=== PATIENT | female | born 1950 | race Caucasian/White ===

== ENCOUNTER → 2024-12-15 | Outpatient (BNVA) | payer MEDICARE, SELFPAY | END | disposition home or self-care (01) | PROVIDERS: PCP Physician Assistant; Referring Provider Physician Assistant; Visit Provider Urology | DX: N32.81 Overactive bladder (principal); G89.4 Chronic pain syndrome; Z87.440 Personal history of urinary (tract) infections; I10 Essential (primary) hypertension; F17.210 Nicotine dependence, cigarettes, uncomplicated; E78.00 Pure hypercholesterolemia, unspecified | CPT/HCPCS: 81003; 99212; G0463 ==

== ENCOUNTER 2025-03-19 10:35 | Emergency (ER) | payer MEDICARE, MEDICAID, SELFPAY ==
[2025-03-19 10:37] VITALS: BP 162/81; PULSE 55; RESP 16; TEMP 36.6; O2SAT 95; BMI 20.8
[2025-03-19 10:40] VITALS: PULSE 74; RESP 18; O2SAT 98
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
[2025-03-19 13:52] VITALS: BP 141/84; PULSE 63; RESP 18; TEMP 36.6; O2SAT 96
[2025-03-19 14:08] LABS: Basophils % (Auto) 0 % (0-2.5); Eosinophils % (Auto) 0 % (0-10); Hematocrit 42.7 % (36.0-46.0); Hemoglobin 13.9 g/dL (12.0-16.0); Immature Granulocytes % (Auto) 1 % (0-0); Immature Granulocytes Auto 0.19 Thou/mm3 (0.00-0.00); Lymphocytes % (Auto) 5 % (10-50); Mean Corpuscular HGB Conc 32.6 g/dl (31.0-37.0); Mean Corpuscular Volume 83 fL (80-100); Monocytes # (Auto) 1.1 Thou/mm3 (0.0-0.8); Monocytes % (Auto) 5 % (0-12); Neutrophils # (Auto) 18.3 Thou/mm3 (1.8-7.7); Neutrophils % (Auto) 89 % (37-80); Nucleated Red Blood Cell % 0 /100 WBC (0); Platelet Count 284 Thou/mm3 (140-440); RDW Standard Deviation 52.1 fL (36.4-46.3); Red Blood Count 5.14 Miln/mm3 (4.00-5.20); White Blood Count 20.7 Thou/mm3 (3.6-11.0)
[2025-03-19 14:22] LABS: Partial Thromboplastin Time 21.9 Seconds (22.0-36.0)
[2025-03-19 14:27] LABS: Alanine Aminotransferase 28 U/L (10-49); Albumin, Serum 3.8 gm/dL (3.4-4.8); Albumin/Globulin Ratio 1.7 (1.2-2.2); Alkaline Phosphatase 118 U/L (46-116); Anion Gap 5 (7-16); Aspartate Amino Transferase 44 U/L (0-34); BUN/Creatinine Ratio 17 Ratio (12-20); Bilirubin,Total 0.5 mg/dL (0.3-1.2); Blood Urea Nitrogen 15 mg/dL (9-23); Calcium 9.5 mg/dL (8.3-10.6); Calcium (Corrected) 9.7 mg/dL (8.5-10.1); Chloride 109 mMol/L (98-107); Creatinine (Component) 0.9 mg/dL (0.6-1.3); Globulin 2.3 gm/dL (2.3-3.5); Glucose 137 mg/dL (74-106); Osmolality,Calculated 284 (275-295); Potassium 4.5 mMol/L (3.4-5.1); Sodium 141 mMol/L (136-145); Total Protein 6.1 gm/dL (5.7-8.2); eGFR > 60 See Note
[2025-03-19 15:05] VITALS: BP 150/80; PULSE 66; RESP 18; TEMP 36.5; O2SAT 99
[2025-03-19] MEDS: HYDROcodone/APAP 10/325 TAB PO (16:11)
[2025-03-19 16:29] VITALS: BP 145/82; PULSE 73; RESP 21; TEMP 36.6; O2SAT 96
[2025-03-19] MEDS: HYDROmorphone INJ 2 MG/ML VIAL 1 MG IVP (18:08)
== END 2025-03-19 18:30 | disposition short-term general hospital (02) ==
PROVIDERS: Nurse Practitioner Family; Emergency Provider Emergency Medicine; PCP Physician Assistant
DX: S12.600A Unspecified displaced fracture of seventh cervical vertebra, initial encounter for closed fracture (principal); S32.038A Other fracture of third lumbar vertebra, initial encounter for closed fracture; V43.52XA Car driver injured in collision with other type car in traffic accident, initial encounter; R51.9 Headache, unspecified; M25.512 Pain in left shoulder; M25.552 Pain in left hip
CPT/HCPCS: 36415; 70450; 72125; 72131; 73030; 73502; 80053; 85025; 85730; 96374; 99285; J1171; A9270

== ENCOUNTER → 2025-04-17 | Outpatient (CLI) | payer MEDICARE, MEDICAID, SELFPAY ==
--- NOTE | 2025-04-17 12:30 | XR_ITS ---
Examination: Abdomen sonogram, complete Date and time of exam: April 17, 2025 1240 hours INDICATIONS: Generalized abdominal pain beginning several months ago. Technique: Multiple real-time grayscale transabdominal sonographic images of the abdomen have been obtained. Findings: Multiple gallstones Gallbladder wall 0.3 cm Common bile duct 0.8 cm although no definite stones Pancreatic head 1.8 cm Aorta not enlarged Liver 14.1 cm mildly lobular contour fatty infiltration no focal liver lesions Normal hepatopedal portal venous flow Patent IVC Right kidney 9.0 cm cortex 1.8 cm 14 mm upper pole cyst 11 mm lower pole cyst Left kidney 9.6 cm cortex 1.4 cm Mild bilateral renal parenchymal scar formation Spleen 9.3 cm IMPRESSION: Cholelithiasis, negative for cholecystitis Fatty liver, suspect primary hepatocellular disease Mild bilateral renal parenchymal scar formation
== END | disposition home or self-care (01) ==
LOC: CDIM 12:21
PROVIDERS: PCP Physician Assistant; Referring Provider Physician Assistant; Visit Provider Physician Assistant
DX: K80.20 Calculus of gallbladder without cholecystitis without obstruction (principal); K76.0 Fatty (change of) liver, not elsewhere classified; N28.89 Other specified disorders of kidney and ureter; N28.1 Cyst of kidney, acquired
CPT/HCPCS: 76700

== ENCOUNTER → 2025-07-23 | Outpatient (CLI) | payer MEDICARE, MEDICAID, SELFPAY ==
--- NOTE | 2025-07-23 13:45 | XR_ITS ---
Examination: Screening digital mammography, bilateral Computer aided detection 3-D breast Tomosynthesis, bilateral Date and time of exam: July 23, 2025 1341 hours, comparison February 18, 2024 Indication: Screening Technique: Nonmagnified MLO, CC views of the breasts to been obtained, reconstructed from 3-D Tomosynthesis images. R2 computer aided detection program utilized for evaluation of suspicious masses and/or abnormal calcifications. 3-D Tomosynthesis images obtained. Findings: The breasts are heterogeneously dense, which may obscure small masses Grouped microcalcifications 12:00 position left breast Impression: BI-RADS Category 0: Incomplete: Need additional imaging evaluation Recommend follow-up spot magnification views of grouped microcalcifications 12:00 position left breast.
== END | disposition home or self-care (01) ==
PROVIDERS: PCP Physician Assistant; Referring Provider Physician Assistant; Visit Provider Physician Assistant
DX: Z12.31 Encounter for screening mammogram for malignant neoplasm of breast (principal); R92.0 Mammographic microcalcification found on diagnostic imaging of breast
CPT/HCPCS: 77063; 77067

== ENCOUNTER 2025-10-21 16:13 | Observation (INO) | payer MEDICARE, MEDICAID, SELFPAY ==
[2025-10-21 16:45] VITALS: BP 171/85; PULSE 65; RESP 18; TEMP 37.2; O2SAT 96; BMI 20.5
--- NOTE | 2025-10-21 16:48 | EKG_ITS ---
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
--- NOTE | 2025-10-21 16:50 | XR_ITS ---
Examination: Abdomen sonogram, Limited Date and time of exam: October 21, 2025, 1715 hours INDICATIONS: Generalized abdominal pain today Technique: Real-time brice scale transabdominal sonographic images of the upper abdomen obtained. Findings: Multiple gallstones Normal gallbladder wall 0.3 cm Common bile duct 0.6 cm no stones Pancreatic head 2.0 cm Liver 12.8 cm irregular contour no focal liver lesions Normal hepatopetal portal venous flow Patent IVC IMPRESSION: Normal gallbladder Negative for common bile duct stones Liver normal size mildly irregular contour, clinical correlation advised, consider primary hepatocellular disease
--- NOTE | 2025-10-21 16:52 | XR_ITS ---
Examination: CT abdomen and pelvis without contrast. Coronal 3-D reconstructions. Sagittal 2-D reconstructions. Date and time of exam: October 21, 2025, 1706 hours INDICATIONS: Abdominal pain and nausea beginning today CTDI: vol (mGy): 5.12 DLP: (mGycm): 251 Technique: Axial images of the abdomen have been obtained, 3 mm slice thickness Intravenous contrast material has not been administered. Low dose protocols were performed. One or more of the following dose reduction techniques were used; automated exposure control, adjustment of the mA and/or KV according to patient size, use of iterative reconstruction technique. Findings: Retrocardiac gastric hernia Gastric sutures 5 mm splenic lesion Contracted gallbladder with gallstones Aorta is not enlarged No bowel obstruction Fluid distended small bowel loops in the abdomen poorly visualized on this noncontrast study No pericecal inflammatory change No pelvic mass No bladder mass Grade 1-2 anterolisthesis L4 on L5 Advanced degenerative disc disease L2-L3, L4-L5, L5-S1 Cortical erosions contiguous endplates L2-L3 IMPRESSION: Recommend splenic sonography to assess 5 mm splenic lesion Cholelithiasis Fluid distended small bowel loops, consider serial abdominal series follow-up to exclude early small bowel obstruction Cortical bone erosion involving contiguous endplates L2-L3 suspicious for osteomyelitis discitis, consider elective MRI lumbar spine follow-up pre and postcontrast
--- NOTE | 2025-10-21 16:53 | PD.EDRME ---
Rapid Medical Screening Exam RME Arrival date/time: 10/21/25 16:13 75-year-old female presents with concerns for upper abdominal pain ongoing for days Chief Complaint: Abdominal Pain Vital signs: Vital Signs Temperature 98.9 F 10/21/25 16:45 Pulse Rate 65 10/21/25 16:45 Respiratory Rate 18 10/21/25 16:45 Blood Pressure 171/85 H 10/21/25 16:45 Pulse Oximetry (%) 96 10/21/25 16:45 Oxygen Delivery Method Room Air 10/21/25 16:45 Vital signs reviewed by provider: Yes Exam: On exam patient has tenderness of the abdomen Clinical Impression: Lab work and imaging obtained
[2025-10-21 17:42] LABS: Basophils # (Auto) 0.0 Thou/mm3 (0.0-0.2); Basophils % (Auto) 0 % (0-2.5); Eosinophils # (Auto) 0.0 Thou/mm3 (0.0-0.5); Eosinophils % (Auto) 0 % (0-10); Hematocrit 45.2 % (36.0-46.0); Hemoglobin 14.5 g/dL (12.0-16.0); Immature Granulocytes Auto 0.05 Thou/mm3 (0.00-0.00); Lymphocytes # (Auto) 1.2 Thou/mm3 (1.0-4.8); Lymphocytes % (Auto) 9 % (10-50); Mean Corpuscular HGB Conc 32.1 g/dl (31.0-37.0); Mean Corpuscular Hemoglobin 27.3 pg (25.0-35.0); Mean Corpuscular Volume 85 fL (80-100); Monocytes # (Auto) 0.6 Thou/mm3 (0.0-0.8); Monocytes % (Auto) 4 % (0-12); Neutrophils # (Auto) 11.8 Thou/mm3 (1.8-7.7); Neutrophils % (Auto) 87 % (37-80); Nucleated Red Blood Cell # 0.00 Thou/mm3 (0.00-0.00); Nucleated Red Blood Cell % 0 /100 WBC (0); Platelet Count 391 Thou/mm3 (140-440); RDW Standard Deviation 43.9 fL (36.4-46.3); Red Blood Count 5.32 Miln/mm3 (4.00-5.20); White Blood Count 13.6 Thou/mm3 (3.6-11.0)
[2025-10-21 18:27] LABS: Alanine Aminotransferase < 7 U/L (10-49); Albumin, Serum 4.1 gm/dL (3.4-4.8); Albumin/Globulin Ratio 1.6 (1.2-2.2); Alkaline Phosphatase 140 U/L (46-116); Anion Gap 9 (7-16); Aspartate Amino Transferase 13 U/L (0-34); BUN/Creatinine Ratio 21 Ratio (12-20); Bilirubin,Total 0.4 mg/dL (0.3-1.2); Blood Urea Nitrogen 17 mg/dL (9-23); Calcium 9.6 mg/dL (8.3-10.6); Calcium (Corrected) 9.6 mg/dL (8.5-10.1); Carbon Dioxide 26.3 mMol/L (20.0-31.0); Chloride 107 mMol/L (98-107); Creatinine (Component) 0.8 mg/dL (0.6-1.3); Estimated Creatinine Clearance 48.8 mL/min (>60); Globulin 2.5 gm/dL (2.3-3.5); Glucose 118 mg/dL (74-106); Lipase 25 U/L (12-53); Osmolality,Calculated 285 (275-295); Potassium 5.1 mMol/L (3.4-5.1); Sodium 142 mMol/L (136-145); Total Protein 6.6 gm/dL (5.7-8.2); Troponin I < 0.020 ng/mL (0.0-0.045); eGFR > 60 See Note
--- NOTE | 2025-10-21 18:43 | PD.EDABDPN ---
ED Abdominal Pain RME/HPI General Chief Complaint: Abdominal Pain Stated complaint: ABD PAIN 06/14 Time seen by provider: 10/21/25 18:31 Arrival date/time: 10/21/25 16:13 RME / HPI RME / HPI narrative: 10/21/25 16:13 75-year-old female presents with concerns for upper abdominal pain ongoing for days upper abdominal pain for the last few days. Vital signs and exam as listed. Prior provider evaluated patient. Ordered labs, right upper quadrant ultrasound as well as CT abdomen pelvis. Also ordered EKG. Concern for pancreatitis cholelithiasis Crichlow cystitis urinary tract infection ACS obstruction perforation among others. DR. GALLARDO MAIN ED EVALUATION: 75 y/o female with SHx of Gastric Bypass and Hiatal Hernia Repair in March 2025 presents to ED c/o worsening intermittent epigastric abdominal pain x several weeks, worse over the last few days. Also reports dysuria and non-bloody diarrhea. Pain is worse when laying down. Patient last saw PCP a couple of days ago who was referring her for CT. Denies alcohol or illicit drug abuse. Reports allergy to Penicillin. Currently on Bethesda for chronic back pain. Admits to recently having difficulty collecting her thoughts, lives alone, and is not a reliable historian. Exam: On exam patient has tenderness of the abdomen Impression: Lab work and imaging obtained Related Data Home Medications ?Medication ?Instructions ?Recorded ?Confirmed azelastine 137 mcg (0.1 %) nasal 1 spray intranasal BID #0 spry 08/02/17 12/15/24 spray duloxetine 60 mg capsule,delayed 60 mg PO BID #0 caps 08/02/17 12/15/24 release (Cymbalta) lisinopril 10 mg tablet 10 mg PO QDAY #0 tabs 08/02/17 12/15/24 topiramate 50 mg tablet (Topamax) 50 mg PO BID #0 tabs 08/02/17 12/15/24 atorvastatin 10 mg tablet (Lipitor) 10 mg PO QDAY 12/04/18 12/15/24 metoprolol succinate 25 mg 25 mg PO BID 02/21/21 12/15/24 tablet,extended release 24 hr citalopram 10 mg tablet 10 mg PO QDAY 06/28/21 12/15/24 doxepin 100 mg capsule 100 mg PO HS 06/28/21 12/15/24 hydrocodone 10 mg-acetaminophen 1 tab PO Q6H PRN Pain 06/28/21 12/15/24 325 mg tablet pantoprazole 40 mg tablet,delayed 40 mg PO DAILY 06/28/21 12/15/24 release aripiprazole 5 mg tablet (Abilify) 5 mg PO QDAY 10/12/23 12/15/24 sumatriptan succinate 50 mg tablet 100 mg PO Q2HR PRN BREAKTHROUGH 10/12/23 12/15/24 (Imitrex) PAIN (MILD) #0 tabs mirabegron 25 mg tablet,extended 25 mg PO QDAY 02/11/24 12/15/24 release 24 hr (Myrbetriq) oxybutynin chloride 10 mg 10 mg PO QDAY 02/11/24 12/15/24 tablet,extended release 24 hr Allergies Allergy/AdvReac Type Severity Reaction Status Date / Time Penicillins Allergy Intermediate Rash Verified 10/21/25 16:17 cephalexin (From Keflex) Allergy thrush in Verified 10/21/25 16:17 mouth, UTI morphine AdvReac Severe Difficulty Verified 10/21/25 16:17 Breathing Past Medical History Past Medical History NEUROLOGIC: Positive Peripheral Neuropathy, Migraine and Head Trauma (X2 2019 ER VISIT) CARDIAC: Positive Angina, Heart Murmur, Hypercholesterolemia, Congestive Heart Failure and Hypertension (TAKES MED) RESPIRATORY: Positive Bronchitis and Sleep Apnea (has cpap machine) GASTROINTESTINAL: Positive Gastrointestinal Disorders, Hemorrhoids (NO SURG) and Gastroesophageal Reflux Disease (TAKES MED) REPRODUCTIVE: Positive Previous Pregnancies (X1) MUSCULOSKELETAL: Positive Musculoskeletal Disorders (bursitis in hips), Arthritis, Rheumatoid Arthritis and Fractures (RIGHT ANKLE,RIGHT FOOT NO SURG HAD CASTS) ENT: Positive Cataracts (EARLENE) and Head Trauma (X2 2019 ER VISIT) PSYCHO/SOCIAL: Positive Depression (TAKES MED) and Anxiety (TAKES MED) Family History FAMILY HISTORY: Positive Family Psychiatric Problems, Family Respiratory Disorders, Family Cardiac Disorders, Family Cancer and Family Surgery Surgical History SURGICAL: Positive Angiogram, Tonsillectomy, Gastric Bypass Surgery, Hysterectomy (SALEEM WITH EARLENE SALP) and Tubal Ligation ED Exam Narrative Physical exam: GEN. APPEARANCE: The patient is alert awake oriented X-3 in no distress, lying down comfortably, does not look ill/toxic. Patient has good eye contact. Patient is cooperative. VITALS: All vitals were reviewed and the pulse ox is 98% on room air which is normal according to my interpretation. HEENT: Normocephalic, atraumatic. Pupils are equal and reactive. Oral mucosa is moist. Patent Nares NECK: Supple, nontender, no thyromegaly, no meningismus, no JVD CHEST: Symmetrical, atraumatic, and with equal expansion , Nontender on palpation no deformity and no crepitus. CARDIOVASCULAR: Heart regular rhythm no murmur or gallop rub or extra beats. LUNGS: Clear to auscultation bilaterally with symmetrical chest rise. No laboring tachypnea or wheezing. No intercostal subcostal retraction. No rales and no rhonchi. ABDOMEN: Soft, flat, severe tenderness to palpation of epigastrium, no guarding or rebound tenderness. There are no abnormal masses palpated. Active and normal bowel sounds. EXTREMITIES: Nontender. No edema. No cyanosis. Patient is able to move all 4 extremities well, with full ROM and good CSM. SKIN: Warm and dry, no jaundice or rashes noted. NEURO: Patient is REED x 4, Cranial nerves II through XII grossly intact. There is no focal neurologic deficits noted. GCS is 15, PNS and [employer] appear grossly intact. PSYCHIATRIC: Patient is in normal mood and affect. Course Quality Measures none Orders Category Date Time Status CT Screening NOW Care 10/21/25 18:57 Active EKG (ED ONLY) *Do not use* NOW Care 10/21/25 16:49 Completed IV [Insert IV] NOW Care 10/21/25 19:52 Active NPO NOW Care 10/21/25 23:20 Active Consult to General Surgery Stat Cons 10/21/25 23:19 Ordered Diet NPO (NOW) Diet 10/21/25 23:[address] abdomen pelvis w con Stat Exams 10/21/25 18:[address] abdomen pelvis wo con Stat Exams 10/21/25 16:52 Completed EKG (ED Only) Stat Exams 10/21/25 16:48 Draft US gall bladder Stat Exams 10/21/25 16:50 Completed US spleen Stat Exams 10/21/25 18:55 Completed XR small bowel single contrast Stat Exams 10/21/25 23:46 Stop Req CBC Stat Lab 10/21/25 17:35 Completed Comprehensive Metabolic Panel Stat Lab 10/21/25 17:35 Completed Hemoglobin and Hematocrit Stat Lab 10/22/25 00:00 Completed Lactic Acid [Lactate (Lactic Acid)] Stat Lab 10/21/25 23:27 Completed Lipase Stat Lab 10/21/25 17:35 Completed Troponin I Stat Lab 10/21/25 17:35 Completed UA, C/S IF [Urinalysis, C/S if Indicated] Stat Lab 10/21/25 18:45 Completed Urine Culture Stat Lab 10/21/25 18:45 Received CIPROFLOXACIN/D5w 400 MG IVPB [Cipro Ivpb] Med 10/21/25 23:12 Discontinued 400 mg in 200 ml IV STAT Lidocaine 2% Viscous [Xylocaine 2% Viscous] Med 10/21/25 19:29 Discontinued 15 ml PO X1 ONE Pantoprazole/Ns 80Mg IV Premix [Protonix/NS 80mg IV Med 10/22/25 00:29 Active Premix] 80 mg in 100 ml IV X1 Pantoprazole/Ns 80Mg IV Premix [Protonix/NS 80mg IV Med 10/22/25 00:29 Discontinued Premix] 80 mg in 100 ml IV X1 Ringers Lactated 1000 ml [Lactated Ringers] 1,000 ml Med 10/21/25 23:20 Discontinued IV 999 mls/hr mg Hyd/Al Hyd/Bety Susp [Maalox Susp] Med 10/21/25 19:29 Discontinued 30 ml PO X1 ONE Vital Signs Vital signs: Vital Signs Temperature 98.9 F 10/21/25 16:45 Pulse Rate 65 10/21/25 16:45 Respiratory Rate 18 10/21/25 16:45 Blood Pressure 171/85 H 10/21/25 16:45 Pulse Oximetry (%) 96 10/21/25 16:45 Oxygen Delivery Method Room Air 10/21/25 16:45 Abdominal Pain MDM MDM Narrative MDM Narrative:: Scribe Attestation: IRosa Maria, lissa scribing for and in the presence of Dr. Gallardo. Provider Notation: Although this document has been carefully reviewed, there may still be some phonetic and other typographical errors. These errors are purely grammatical due to imperfections in the software program and should not be construed in any way to compromise the substance of the patient's medical care during this visit. Patient is a 75-year-old female that is in the emergency department with concerns for abdominal pain. Vital signs and exam as listed. Prior provider evaluated patient. Ordered labs EKG CT abdomen pelvis right upper quadrant ultrasound offered medications for symptom relief. Concern for ACS arrhythmia pancreatitis cholelithiasis cholecystitis obstruction among others. Offered medication for symptom leaf. Labs with evidence of leukocytosis 13.6, left shift of 87%, hemoglobin is 14.5 no acute metabolic disturbance, troponin not elevated lipase normal,. EKG performed at 1658 interpreted by me, sinus rhythm, heart rate 79, normal intervals, abnormal baseline, nonspecific T wave changes, not a cardiac alert. Right upper quad ultrasound without any acute abnormalities possible fatty liver. CT abdomen pelvis without contrast shows a retrocardiac gastric hernia, 5 mm splenic lesion, contracted gallbladder with gallstones fluid distended small loops of bowel in the abdomen grade 1 to anterior listhesis L4 and L5, and degenerative disc disease throughout the lumbar and sacral spine. UA with findings concerning for urinary tract infection positive for nitrites negative for leuk esterase 19 red blood cells 23 white blood cells 9 squames 4+ bacteria. Antibiotics ordered. Ultrasound of the spleen did not identify any lesions. CT abdomen pelvis done with contrast shows a 27 mm left lobe liver lesion, also has prominently fluid distended bowel in the upper right abdomen concerning for small bowel hernia with small bowel obstruction. Patient does have a history of epigastric hernia status post repair which puts her at risk for bowel obstruction. She is very tender in the epigastrium. Patient has fat-containing femoral hernias. Given these findings we will discuss admission with the hospital service, ordered small bowel follow-through study. Discussed case with hospitalist for admission. 12:31a was notified by nursing staff that patient had episode of melena in the bathroom. Went to reevaluate the patient, patient in fact does have melena. I ordered repeat H&H, Protonix bolus and drip also placed a consult to the gastroenterology, updated the admitting team. Patient data External records reviewed:: [facility] previous records (Reviewed prior ED records from 03/19/25. Patient was seen for C7 cervical fracture.) Clinical information provided by:: patient Social determinants that could affect healthcare access:: mental health Patient has the following chronic illnesses:: Peripheral Neuropathy, Migraine, Angina, Heart Murmur, Hypercholesterolemia, Congestive Heart Failure, Hypertension, Sleep Apnea, Hemorrhoids, Gastroesophageal Reflux Disease, Arthritis, Rheumatoid Arthritis, Cataracts, Depression, Anxiety How is presenting disease/condition affected by chronic disease/condition?: exacerbated by Evaluation data The following diagnostics were reviewed and interpreted by me:: lab results, radiology exam(s) and EKG tracing(s) (EKG done at 16:58, 79 bpm, normal intervals, non-specific T-wave changes, not a cardiac alert. - Interpreted by Dr. Rosi Gallardo.) Lab and/or radiology exams considered but not ordered:: None Interpretation Summary: RADIOLOGY Spleen US: FINDINGS: Spleen 8.4 cm, no splenic lesion identified IMPRESSION: No splenic lesion confirmed Gallbladder US: Findings: Multiple gallstones Normal gallbladder wall 0.3 cm Common bile duct 0.6 cm no stones Pancreatic head 2.0 cm Liver 12.8 cm irregular contour no focal liver lesions Normal hepatopetal portal venous flow Patent IVC IMPRESSION: Normal gallbladder Negative for common bile duct stones Liver normal size mildly irregular contour, clinical correlation advised, consider primary hepatocellular disease Abdomen/Pelvis CT: Findings: Retrocardiac gastric hernia Gastric sutures 5 mm splenic lesion Contracted gallbladder with gallstones Aorta is not enlarged No bowel obstruction Fluid distended small bowel loops in the abdomen poorly visualized on this noncontrast study No pericecal inflammatory change No pelvic mass No bladder mass Grade 1-2 anterolisthesis L4 on L5 Advanced degenerative disc disease L2-L3, L4-L5, L5-S1 Cortical erosions contiguous endplates L2-L3 IMPRESSION: Recommend splenic sonography to assess 5 mm splenic lesion Cholelithiasis Fluid distended small bowel loops, consider serial abdominal series follow-up to exclude early small bowel obstruction Cortical bone erosion involving contiguous endplates L2-L3 suspicious for osteomyelitis discitis, consider elective MRI lumbar spine follow-up pre and postcontrast Abdomen/Pelvis CT w/ Contrast: Findings: Left lobe liver lesion 27 mm Gallstones Spleen is not enlarged No pancreatic or adrenal mass No hydronephrosis Heavy abdominal aortic calcification Fluid distended small bowel loops, coronal image 62 in the upper right abdomen Contracted urinary bladder Cortical bone erosion contiguous margins 0203 IMPRESSION: Cholelithiasis 27 mm left lobe liver lesion, differential would include hepatic metastasis, primary hepatocellular carcinoma, recommend MRI abdomen follow-up pre and postcontrast Prominently fluid distended bowel in the upper right abdomen, coronal image 62, consider Gastrografin small bowel series follow-up to exclude internal small bowel hernia with small bowel obstruction No diverticulitis Fat-containing femoral hernias, no bowel present in these hernia defects Medications / Prescriptions Medications or Prescriptions considered but not ordered:: None Medication administrations:: Medication Administration History Pantoprazole Sodium (Protonix/Ns 80mg Iv Premix) 80 mg in 100 mls @ 10 mls/hr IV X1 ONE Stop: 10/22/25 10:28 Last Admin: 10/22/25 00:46 Dose: 10 mls/hr Documented By: PEGGY Discontinued Medications Al Hydrox/Mg Hydrox/Simethicone (Mg Hyd/Al Hyd/Bety (Maalox Reg) Susp 30 Ml Udc) 30 ml PO X1 ONE Stop: 10/21/25 19:30 Last Admin: 10/21/25 19:51 Dose: 30 ml Documented By: PEGGY Ciprofloxacin/Dextrose (Cipro Ivpb) 400 mg in 200 mls @ 200 mls/hr IV STAT STA Stop: 10/22/25 00:11 Last Infusion: 10/22/25 00:43 Dose: Infused Documented By: Admin: 10/21/25 23:37 Dose: 200 mls/hr Documented By: PEGGY Lactated Ringer's (Lactated Ringers) 1,000 mls @ 999 mls/hr IV .Q1H1M ONE Stop: 10/22/25 00:20 Last Infusion: 10/22/25 00:56 Dose: Infused Documented By: Admin: 10/21/25 23:39 Dose: 999 mls/hr Documented By: PEGGY Pantoprazole Sodium (Protonix/Ns 80mg Iv Premix) 80 mg in 100 mls @ 400 mls/hr IV X1 ONE Stop: 10/22/25 00:43 Last Infusion: 10/22/25 01:08 Dose: Infused Documented By: Admin: 10/22/25 00:46 Dose: 400 mls/hr Documented By: PEGGY Lidocaine HCl (Lidocaine Viscous 2% 15 Ml Udc) 15 ml PO X1 ONE Stop: 10/21/25 19:30 Last Admin: 10/21/25 19:51 Dose: 15 ml Documented By: PEGGY See above if any Consultations Consultation(s) initiated? (list below): Yes Consultation #1 (Physician, Specialty, Details): Attempted consult with Hospitalist. No answer. Time: 23:15 Consultation #2 (Physician, Specialty, Details): Discussed with Dr. Garza for admission. Reviewed the patient?s HPI, PMHx, lab and/or radiology results. Discussed treatment plan. Will consult an admission to the hospitalist. Time: 23:49 Diagnosis Differential diagnosis abdominal pain: abdominal pain and other (GERD, Ulcer, Gastritis) Most likely diagnosis given after review of the tests above:: Abdominal pain, Urinary tract infection, Lesion of liver, Acute epigastric pain, GI (gastrointestinal bleed) Admission Indicated Admission indicated?: indicated Explain why admission is indicated or not indicated:: Abdominal pain, Urinary tract infection, Lesion of liver, Acute epigastric pain, GI (gastrointestinal bleed) Admission Request Was there a request for admission?: Yes Admission Attestation Admission request attestation: Discussed case with [] from Hospitalist service regarding admission. Discussed patients ED course, exam findings, labs, and radiology results. The Hospitalist [agrees,declines] to accept the patient for admission. Disposition Plan Disposition Plan: Admit Critical Care Time Critical Care Time Critical Care Time: Yes Total Critical Care Time (min.): 45 Attestation: Due to a high probability of clinically significant, life threatening deterioration, the patient required my highest level of preparedness to intervene emergently and I personally spent this critical care time directly and personally managing the patient. This critical care time included obtaining a history; examining the patient; pulse oximetry; ordering and review of studies; arranging urgent treatment with development of a management plan; evaluation of patient's response to treatment; frequent reassessment; and, discussions with other providers. This critical care time was performed to assess and manage the high probability of imminent, life-threatening deterioration that could result in multi-organ failure. It was exclusive of separately billable procedures and treating other patients and teaching time. Please see MDM section and the rest of the note for further information on patient assessment and treatment. Discharge Plan Problem List Clinical Impression: Abdominal pain, Urinary tract infection, Lesion of liver, Acute epigastric pain, GI (gastrointestinal bleed)
--- NOTE | 2025-10-21 18:55 | XR_ITS ---
EXAMINATION: Ultrasound soft tissue spleen TECHNIQUE: Grayscale sonographic images soft tissue spleen Date and time: October 21, 2025, 1953 hours INDICATIONS: Generalized abdominal pain today, splenic lesion noted on CT examination today FINDINGS: Spleen 8.4 cm, no splenic lesion identified IMPRESSION: No splenic lesion confirmed
--- NOTE | 2025-10-21 18:57 | XR_ITS ---
Examination: CT abdomen with intravenous contrast CT pelvis with intravenous contrast 2-D coronal reconstructions 2-D sagittal reconstructions Date and time of exam: October, 2101 hours, comparison October 21, 2025 INDICATIONS: Severe abdominal pain beginning 3 days ago. CTDI: vol (mGy) 5.67 DLP: (mGycm) 280 Technique: Multiple axial sections of the abdomen and pelvis have been obtained. 64 slice high-resolution scanner used. 3 mm axial sections have been obtained, post intravenous injection 60 cc [id number] 2-D sagittal, coronal reconstructions obtained. Low dose protocols were performed. One or more of the following dose reduction techniques were used; automated exposure control, adjustment of the mA and/or KV according to patient size, use of iterative reconstruction technique. Findings: Left lobe liver lesion 27 mm Gallstones Spleen is not enlarged No pancreatic or adrenal mass No hydronephrosis Heavy abdominal aortic calcification Fluid distended small bowel loops, coronal image 62 in the upper right abdomen Contracted urinary bladder Cortical bone erosion contiguous margins 0203 IMPRESSION: Cholelithiasis 27 mm left lobe liver lesion, differential would include hepatic metastasis, primary hepatocellular carcinoma, recommend MRI abdomen follow-up pre and postcontrast Prominently fluid distended bowel in the upper right abdomen, coronal image 62, consider Gastrografin small bowel series follow-up to exclude internal small bowel hernia with small bowel obstruction No diverticulitis Fat-containing femoral hernias, no bowel present in these hernia defects
[2025-10-21 19:01] LABS: Collection Type, Urine Clean Catch
[2025-10-21 19:08] LABS: Bilirubin,Urine Negative (Negative); Blood,Urine 1+ (Negative); Clarity,Urine Clear (Clear/Hazy); Color,Urine Yellow (Lt Yel-Yel); Glucose, Urine Negative (Negative); Ketones,Urine 2+ (Negative); Leukocyte Esterase,Urine Negative (Negative); Nitrite,Urine Positive (Negative); PH,Urine 6.0 (5.0-7.0); Protein,Urine 1+ (Neg - Trace); Specific Gravity,Urine 1.025 (1.001-1.035); Urobilinogen,Urine 1.0 mg/dL (0.0-1.0)
[2025-10-21 19:19] LABS: Culture Indicated,Urine Yes
[2025-10-21 19:21] LABS: Bacteria,Urine 4+
[2025-10-21 19:22] LABS: RBC,Urine 19 /hpf (0-3); WBC,Urine 23 /hpf (0-5)
[2025-10-21 19:23] LABS: Squamous Epithelial Cell,Urine 9 /hpf (0-5)
--- NOTE | 2025-10-21 19:30 | PD.EDABDPN ---
ED Abdominal Pain RME/HPI General Chief Complaint: Abdominal Pain Stated complaint: ABD PAIN 06/14 Time seen by provider: 10/21/25 18:31 Arrival date/time: 10/21/25 16:13 RME / HPI RME / HPI narrative: 10/21/25 16:13 75-year-old female presents with concerns for upper abdominal pain ongoing for days upper abdominal pain for the last few days. Vital signs and exam as listed. Prior provider evaluated patient. Ordered labs, right upper quadrant ultrasound as well as CT abdomen pelvis. Also ordered EKG. Concern for pancreatitis cholelithiasis [place] cystitis urinary tract infection ACS obstruction perforation among others. DR. GALLARDO MAIN ED EVALUATION: 75 y/o female with SHx of Gastric Bypass and Hiatal Hernia Repair in March 2025 and Hx of GERD presents to ED c/o worsening intermittent epigastric abdominal pain x several weeks, worse over the last few days. Also reports dysuria and non-bloody diarrhea. Pain is worse when laying down. Patient last saw PCP a couple of days ago who was referring her for CT. Denies alcohol or illicit drug abuse. Reports allergy to Penicillin. Currently on [place] for chronic back pain. Admits to recently having difficulty collecting her thoughts, lives alone, and is not a reliable historian. Exam: On exam patient has tenderness of the abdomen Impression: Lab work and imaging obtained Related Data Home Medications ?Medication ?Instructions ?Recorded ?Confirmed azelastine 137 mcg (0.1 %) nasal 1 spray intranasal BID #0 spry 08/02/17 12/15/24 spray duloxetine 60 mg capsule,delayed 60 mg PO BID #0 caps 08/02/17 12/15/24 release (Cymbalta) lisinopril 10 mg tablet 10 mg PO QDAY #0 tabs 08/02/17 12/15/24 topiramate 50 mg tablet (Topamax) 50 mg PO BID #0 tabs 08/02/17 12/15/24 atorvastatin 10 mg tablet (Lipitor) 10 mg PO QDAY 12/04/18 12/15/24 metoprolol succinate 25 mg 25 mg PO BID 02/21/21 12/15/24 tablet,extended release 24 hr citalopram 10 mg tablet 10 mg PO QDAY 06/28/21 12/15/24 doxepin 100 mg capsule 100 mg PO HS 06/28/21 12/15/24 hydrocodone 10 mg-acetaminophen 1 tab PO Q6H PRN Pain 06/28/21 12/15/24 325 mg tablet pantoprazole 40 mg tablet,delayed 40 mg PO DAILY 06/28/21 12/15/24 release aripiprazole 5 mg tablet (Abilify) 5 mg PO QDAY 10/12/23 12/15/24 sumatriptan succinate 50 mg tablet 100 mg PO Q2HR PRN BREAKTHROUGH 10/12/23 12/15/24 (Imitrex) PAIN (MILD) #0 tabs mirabegron 25 mg tablet,extended 25 mg PO QDAY 02/11/24 12/15/24 release 24 hr (Myrbetriq) oxybutynin chloride 10 mg 10 mg PO QDAY 02/11/24 12/15/24 tablet,extended release 24 hr Allergies Allergy/AdvReac Type Severity Reaction Status Date / Time Penicillins Allergy Intermediate Rash Verified 10/21/25 16:17 cephalexin (From Keflex) Allergy thrush in Verified 10/21/25 16:17 mouth, UTI morphine AdvReac Severe Difficulty Verified 10/21/25 16:17 Breathing Review of Systems Review of Systems Systems Reviewed: All systems reviewed, normal except as documented Past Medical History Past Medical History NEUROLOGIC: Positive Neurological Disorders, Peripheral Neuropathy, Migraine and Head Trauma (X2 2019 ER VISIT) CARDIAC: Positive Angina, Heart Murmur, Hypercholesterolemia, Congestive Heart Failure and Hypertension (TAKES MED) RESPIRATORY: Positive Bronchitis and Sleep Apnea (has cpap machine) GASTROINTESTINAL: Positive Gastrointestinal Disorders, Hemorrhoids (NO SURG) and Gastroesophageal Reflux Disease (TAKES MED) REPRODUCTIVE: Positive Previous Pregnancies (X1) MUSCULOSKELETAL: Positive Musculoskeletal Disorders (bursitis in hips), Arthritis, Rheumatoid Arthritis and Fractures (RIGHT ANKLE,RIGHT FOOT NO SURG HAD CASTS) ENT: Positive Cataracts (EARLENE) and Head Trauma (X2 2019 ER VISIT) PSYCHO/SOCIAL: Positive Depression (TAKES MED) and Anxiety (TAKES MED) Family History FAMILY HISTORY: Positive Family Psychiatric Problems, Family Respiratory Disorders, Family Cardiac Disorders, Family Cancer and Family Surgery Surgical History SURGICAL: Positive Angiogram, Tonsillectomy, Gastric Bypass Surgery, Hysterectomy (SALE[place] WITH EARLENE SALP) and Tubal Ligation Social History SMOKING STATUS: Current every day smoker ED Exam Narrative Physical exam: GEN. APPEARANCE: The patient is alert awake oriented X-3 in no distress, lying down comfortably, does not look ill/toxic. Patient has good eye contact. Patient is cooperative. VITALS: All vitals were reviewed and the pulse ox is 100% on room air which is normal according to my interpretation. HEENT: Normocephalic, atraumatic. Pupils are equal and reactive. Oral mucosa is moist. Patent Nares NECK: Supple, nontender, no thyromegaly, no meningismus, no JVD CHEST: Symmetrical, atraumatic, and with equal expansion , Nontender on palpation no deformity and no crepitus. CARDIOVASCULAR: Heart regular rhythm no murmur or gallop rub or extra beats. LUNGS: Clear to auscultation bilaterally with symmetrical chest rise. No laboring tachypnea or wheezing. No intercostal subcostal retraction. No rales and no rhonchi. ABDOMEN: Soft, flat, very tender to palpation over epigastrium, no flank pain, no guarding or rebound tenderness. There are no abnormal masses palpated. Active and normal bowel sounds. EXTREMITIES: Nontender. No edema. No cyanosis. Patient is able to move all 4 extremities well, with full ROM and good CSM. SKIN: Warm and dry, no jaundice or rashes noted. MUSCULOSKELETAL: No lumbar or midline bony tenderness. There is no CVA tenderness. No paraspinal muscle spasm or tenderness. NEURO: Patient is REED x 4, Cranial nerves II through XII grossly intact. There is no focal neurologic deficits noted. GCS is 15, PNS and [employer] appear grossly intact. PSYCHIATRIC: Patient is in normal mood and affect. Course Quality Measures none Orders Category Date Time Status CT Screening NOW Care 10/21/25 18:57 Active EKG (ED ONLY) *Do not use* NOW Care 10/21/25 16:49 Completed IV [Insert IV] NOW Care 10/21/25 19:[address] abdomen pelvis w con Stat Exams 10/21/25 18:[address] abdomen pelvis wo con Stat Exams 10/21/25 16:52 Completed EKG (ED Only) Stat Exams 10/21/25 16:48 Draft US gall bladder Stat Exams 10/21/25 16:50 Completed US spleen Stat Exams 10/21/25 18:55 Taken CBC Stat Lab 10/21/25 17:35 Completed Comprehensive Metabolic Panel Stat Lab 10/21/25 17:35 Completed Lipase Stat Lab 10/21/25 17:35 Completed Troponin I Stat Lab 10/21/25 17:35 Completed UA, C/S IF [Urinalysis, C/S if Indicated] Stat Lab 10/21/25 18:45 Completed Urine Culture Stat Lab 10/21/25 18:45 Received Lidocaine 2% Viscous [Xylocaine 2% Viscous] Med 10/21/25 19:29 Discontinued 15 ml PO X1 ONE mg Hyd/Al Hyd/Bety Susp [Maalox Susp] Med 10/21/25 19:29 Discontinued 30 ml PO X1 ONE Vital Signs Vital signs: Vital Signs Temperature 98.9 F 10/21/25 16:45 Pulse Rate 65 10/21/25 16:45 Respiratory Rate 18 10/21/25 16:45 Blood Pressure 171/85 H 10/21/25 16:45 Pulse Oximetry (%) 96 10/21/25 16:45 Oxygen Delivery Method Room Air 10/21/25 16:45 Abdominal Pain MDM MDM Narrative MDM Narrative:: Scribe Attestation: Rosa Maria Zaldivar, am scribing for and in the presence of Dr. Gallardo. Provider Notation: Although this document has been carefully reviewed, there may still be some phonetic and other typographical errors. These errors are purely grammatical due to imperfections in the software program and should not be construed in any way to compromise the substance of the patient's medical care during this visit. Patient data External records reviewed:: [facility] previous records Clinical information provided by:: patient Social determinants that could affect healthcare access:: mental health Patient has the following chronic illnesses:: Peripheral Neuropathy, Migraine, Angina, Heart Murmur, Hypercholesterolemia, Congestive Heart Failure, Hypertension, Sleep Apnea, Hemorrhoids, Gastroesophageal Reflux Disease, Arthritis, Rheumatoid Arthritis, Depression, and Anxiety How is presenting disease/condition affected by chronic disease/condition?: exacerbated by Medications / Prescriptions Medication administrations:: Medication Administration History Discontinued Medications Al Hydrox/Mg Hydrox/Simethicone (Mg Hyd/Al Hyd/Bety (Maalox Reg) Susp 30 Ml Udc) 30 ml PO X1 ONE Stop: 10/21/25 19:30 Last Admin: 10/21/25 19:51 Dose: 30 ml Documented By: PEGGY Lidocaine HCl (Lidocaine Viscous 2% 15 Ml Udc) 15 ml PO X1 ONE Stop: 10/21/25 19:30 Last Admin: 10/21/25 19:51 Dose: 15 ml Documented By: PEGGY Discharge Plan Prescriptions/Referrals Prescriptions/Med Rec: No Action metoprolol succinate 25 mg tablet extended release 24 hr 25 mg PO BID aripiprazole [Abilify] 5 mg tablet 5 mg PO QDAY Myrbetriq 25 mg tablet extended release 24 hr 25 mg PO QDAY oxybutynin chloride 10 mg tablet extended release 24hr 10 mg PO QDAY lisinopril 10 MG tablet 10 mg PO QDAY Qty: 0 azelastine 137 mcg (0.1 %) Aerosol,[place] 1 spray INTRANASAL BID Qty: 0 topiramate [Topamax] 50 MG tablet 50 mg PO BID Qty: 0 duloxetine [Cymbalta] 60 MG capsule,delayed release(DR/EC) 60 mg PO BID Qty: 0 sumatriptan succinate [Imitrex] 50 mg tablet 100 mg PO Q2HR PRN (Reason: BREAKTHROUGH PAIN (MILD)) Qty: 0 citalopram 10 mg Tablet 10 mg PO QDAY hydrocodone-acetaminophen 10-325 mg Tablet 1 tab PO Q6H PRN (Reason: Pain) doxepin 100 mg Capsule 100 mg PO HS pantoprazole 40 mg Tablet,Delayed Release (Dr/Ec) 40 mg PO DAILY atorvastatin [Lipitor] 10 mg Tablet 10 mg PO QDAY Referrals: No Primary/Family,Physician [Primary Care Provider] - In 1 week Patient/Caregiver Discharge Instructions Print Language: Nepalese
[2025-10-21] MEDS: LIDOCAINE VISCOUS 2% 15 ML UDC PO (19:51)
[2025-10-21] MEDS: MG HYD/AL HYD/SIME (Maalox Reg) SUSP 30 ML UDC PO (19:51)
[2025-10-21 19:53] VITALS: BP 190/93; PULSE 81; RESP 20; TEMP 37.3; O2SAT 100
--- NOTE | 2025-10-21 20:52 | PC.NURSE ---
Sheri gomez [phone]
[2025-10-21 22:42] VITALS: BP 179/97; PULSE 82; RESP 24; TEMP 37; O2SAT 98
[2025-10-21 23:33] LABS: Lactate (Lactic Acid) 1.0 mMol/L (0.4-2.0)
[2025-10-21] MEDS: CIPROFLOXACIN/D5w 400 MG IVPB 400 MG/200 ML BAG 200 MG IV (23:37)
[2025-10-21] MEDS: RINGERS LACTATED 1000 ML 1,000 ML 999 ML IV (23:39)
--- NOTE | 2025-10-21 23:46 | XR_ITS ---
EXAMINATION: Small bowel series AP abdomen 2 views Date and time: October 21, 2025, 11:45 p.m. Indications, abdominal pain and distention this week, dilated small bowel loops on CT study October 21, 2025 2101 hours TECHNIQUE AND FINDINGS: 120 cc Gastrografin administered AP portable supine abdomen 1 minute, 30 minutes Contrast in small bowel loops, dilated small bowel loop in the right upper abdomen Patient having bowel movements, study canceled IMPRESSION: No findings diagnostic for small bowel obstruction
[2025-10-22] VITALS (13 sets, daily range): BP systolic 127–175; BP diastolic 90–104; PULSE 81–123; RESP 16–98; TEMP 36.1–37.1; O2SAT 94–98; BMI 20.7; BMI 20.9
[2025-10-22] MEDS: PANTOPRAZOLE/NS 80MG IV PREMIX 80 MG/100 ML BAG 400 MG IV (00:46)
[2025-10-22] MEDS: PANTOPRAZOLE/NS 80MG IV PREMIX 80 MG/100 ML BAG 10 MG IV (00:46)
[2025-10-22 00:49] LABS: Hematocrit 41.4 % (36.0-46.0); Hemoglobin 13.3 g/dL (12.0-16.0)
--- NOTE | 2025-10-22 00:56 | ESHP_ITS ---
<Statement entered by Hugo Brand MD - 10/22/25 05:54> Patient is poor historian, answering with simple answers like yes or no. Most of the history is taken from the chart review. 75-year-old female with significant past medical history of depression, hyperlipidemia, hypertension, migraine, chronic low back pain, heart murmur, COPD, history of use of CPAP, bladder procedures -Mason procedure, hysterectomy, tonsillectomy, adenectomy, gastric bypass surgery done in 1995, ankle surgery, foot surgery, cataract surgery, peripheral neuropathy, diverticulosis, recurrent urinary tract infection, overactive bladder, chronic pelvic pain syndrome, status post incarcerated epigastric incisional hernia repair done by Dr. Miller in 2020, CKD stage II, C7 vertebral fracture presented to the hospital with chief complaints of epigastric abdominal pain since 1 week. Denies any other associated complaints. Reported that she is taking pain medications for chronic back pain. Reported that as her abdominal pain is getting worse, she presented to the hospital. Also lives alone and is able to take care of herself. Vitals at the time of admission are significant for blood pressure 171/85 mmHg. In the ED, noted to have blackish discoloration of stool. On physical examination, noted to have ejection systolic murmur at aortic area radiating to bilateral carotids, pansystolic murmur in mitral and tricuspid area and mild tenderness in the epigastric area. Labs at the time of admission are significant for WBC 13.6, creatinine 0.8, C-reactive protein 4.6, ESR 26, troponin 0.02, TSH 1.04. Urinalysis showed 2+ ketonuria, positive nitrates, 19 RBC, 23 WBC, 9 squamous epithelial cells-likely contaminated. EKG done at the time of admission showed normal sinus rhythm. Gallbladder ultrasound showed multiple gallstones with negative CBD stones. Abdomen/pelvis CT without contrast showed retrocardiac gastric hernia, 5 mm splenic lesion, cortical erosions contiguous endplates L2-L3, suspicious for osteomyelitis discitis. Splenic ultrasound did not show any splenic lesions. Abdomen/pelvis with contrast showed 27 mm left lobe liver lesion. Femoral hernias. Admitted into the hospital in view of suspected upper GI bleed, suspicious osteomyelitis. Started on cefepime and vancomycin in view of suspected osteomyelitis. Blood cultures were sent. Will repeat urine analysis as it appears to be contaminated. Will continue IV fluids. Ordered MRI with and without contrast of the spine to assess the osteomyelitis. Echocardiogram is ordered in view of heart murmur and to rule out vegetations in the setting of suspected osteomyelitis. Natural Sciences Manager, Dr. Chino is consulted. Physical therapy is referred. Tried to call the contacts on the chart but unsuccessful # Melena, likely upper GI bleed # Suspected osteomyelitis of the spine # Hypertension # History of recurrent urinary tract infections # History of overactive bladder # Chronic active smoker # Depression versus dementia I have personally seen and examined the patient, agree with residents assessment and plan Patient plan of care was discussed with the attending physician, Dr. Padma Brand, PGY2 <Statement entered by William Rouse DO - 10/22/25 03:01> Patient was seen and examined by me. After the review of the clinical data, I agree that the patient will need an admission on inpatient status for potential GI bleed requiring close monitoring for symptoms of bleeding in addition to evaluation by GI in addition to potential spine OM requiring further workup with MRI and potential SBO requiring small bowel follow-through series Plan of care discussed with patient and is in agreement. I William Rouse DO, attest that I was physically present for marcos portions of the evaluation, examined the patient, reviewed labs and imaging, and discussed the plan of care and management with the IM residents team. I agree with the findings and plans documented above. Documentation for date of: 10/22/25 HPI History of Present Illness History of present illness: HPI: 75-year-old female past medical history of hypertension, GI bleed, and hernia repair in 2020 presented to the ED in the evening of 10/21/2025 with a several week history of midepigastric pain. Patient is a poor historian and giving one-word answers saying that she did not know to most of the questions. What was gathered and what was reported was the patient had a upper abdominal pain ongoing for several days. She was found to have a suspicion for SBO on CTAP. CTAP also showed cholelithiasis and a 27 mm left liver lobe lesion. Patient had an episode of melena in the ED. Hemoglobin was 14.5, repeat was 13.3. Patient was started on a pantoprazole drip and given a liter bolus of fluids. GI was consulted. Patient was admitted for upper GI bleed. ED Course: * Significant vitals on arrival: BP 171/85. Remainder vitals within normal limits * Significant labs: WBC 13.6, alk phos 140, hemoglobin 14.5, downtrended to 13.3. * Imaging: * Gallbladder ultrasound showed multiple gallstones * CTAP without contrast showed retrocardiac gastric hernia, 5 mm splenic lesion, fluid distended small bowel loops with concern for SBO, cortical bone erosion involving contiguous endplates L2-L3 suspicious for osteomyelitis discitis * EKG lots of artifact, difficult to interpret, showed a sinus rhythm with a rate of 79, QTc 397 * Splenic ultrasound showed an 8.4 cm spleen with no lesions * CTAP with contrast showed 27 mm left liver lobe lesion, fat-containing femoral hernias but no bowel gas in these defects, prominently fluid distended bowel in the upper right abdomen * Urine: 1+ protein, 2+ ketones, 1+ blood, nitrite positive, 19 RBC, 23 WBC, 9 squamous epithelial cells, 4+ bacteria * ED intervention: Patient was given a liter of LR and 80 mg pantoprazole IV and started on a pantoprazole drip. She also received 400 mg ciprofloxacin and lidocaine and Maalox. History: (Patient is a poor historian, mostly obtained from chart review) * Past medical history: Hypertension, previous GI bleed * Surgical history: Incarcerated epigastric incisional hernia [place] [address] Miller * Social history: Smokes half pack of cigarettes a day, denies alcohol or illicit drug use. Allergies: * Penicillin, causes rash * Cephalexin, causes thrush in mouth, UTI * Morphine, causes difficulty breathing Home Medications: (Pending Med Rec) * Aripiprazole 5 mg daily * Atorvastatin 10 mg daily * Azelastine 1 spray intranasally twice a day * Citalopram 10 mg daily * Doxepin 100 mg nightly * Duloxetine 60 mg twice a day * Victor every 6 hours as needed * Lisinopril 10 mg daily * Metoprolol 25 mg twice a day * Mirabegron 25 mg daily * Oxybutynin 10 mg daily * Pantoprazole 40 mg daily * Sumatriptan 50 mg as needed * Topiramate 50 mg twice a day CODE STATUS: Full Code Review of Systems Review of Systems Narrative Review of Systems: Review of Systems: * General: Denies fevers, chills. * HEENT: Denies headache, congestion, or sore throat. * Cardiac: Denies chest pain or palpitations. * Pulmonary: Denies shortness of breath or cough. * GI: Admits to 1 episode of melena. Several week history of waxing and waning midepigastric pain. Denies nausea, vomiting, diarrhea, constipation. * : Denies dysuria, hematuria, frequency, or urgency. * MSK: Denies pain in the extremities, joints, or myalgias. * Neuro: Denies weakness, numbness, vision changes, or speech difficulty. Exam Vital Signs Temp Pulse Resp BP Pulse Ox O2 Del Method 98.8 F 92 20 175/104 H 96 Room Air 10/22/25 00:03 10/22/25 00:03 10/22/25 00:03 10/22/25 00:03 10/22/25 00:03 10/22/25 00:03 Narrative Exam General: Frail thin lady. Has difficulty finding words. Awake and in no acute distress. Conversational and non-toxic appearing. Neurologic: Alert and oriented to self and place, not time. No gross neurological deficit, and patient able to move all 4 extremities. HEENT: Normocephalic, atraumatic, mucous membranes moist. Pupils reactive to light. Heart: Grade 5 out of 6 systolic ejection murmur heard over the entire chest area. Palpable thrill. Regular rate and rhythm. Lungs: Decreased breath sounds in the bases bilaterally. Abdomen: Pain on palpation of the mid epigastric region, no guarding or rebound tenderness. Extremities: No edema. 2+ radial and dorsalis pedis pulses bilaterally. Skin: Warm. Dry. No rash or ecchymoses. Results: Labs 10/22/25 04:32 10/21/25 17:35 Labs: Short CBC 10/21/25 10/22/25 Range/Units 17:35 00:00 WBC 13.6 H (3.6-11.0) Thou/mm3 Hgb 14.5 13.3 (12.0-16.0) g/dL Hct 45.2 41.4 (36.0-46.0) % Plt Count 391 (140-440) Thou/mm3 BMP 10/21/25 17:35 Sodium 142 Potassium 5.1 Chloride 107 Carbon Dioxide 26.3 BUN 17 Creatinine 0.8 Glucose 118 H Calcium 9.6 Cardiac Enzymes 10/21/25 Range/Units 17:35 Troponin I < 0.020 (0.0-0.045) ng/mL Liver Function 10/21/25 Range/Units 17:35 Total Bilirubin 0.4 (0.3-1.2) mg/dL AST 13 (0-34) U/L ALT < 7 L (10-49) U/L Alkaline Phosphatase 140 H (46-116) U/L Albumin 4.1 (3.4-4.8) gm/dL Urine 10/21/25 Range/Units 18:45 Urine Color Yellow (Lt Yel-Yel) Urine Clarity Clear (Clear/Hazy) Urine pH 6.0 (5.0-7.0) Ur Specific [place] 1.025 (1.001-1.035) Urine Protein 1+ A (Neg - Trace) Urine Glucose (UA) Negative (Negative) Quality Measures Quality Measures none Advance care planning discussed with:: patient Medications Home Medications and Allergies Home Medications ?Medication ?Instructions ?Recorded ?Confirmed ?Type azelastine 137 mcg (0.1 %) nasal 1 spray intranasal BI D #0 spry 08/02/17 12/15/24 History spray duloxetine 60 mg capsule,delayed 60 mg PO BID #0 caps 08/02/17 12/15/24 History release (Cymbalta) lisinopril 10 mg tablet 10 mg PO QDAY #0 tabs 12/15/24 History topiramate 50 mg tablet (Topamax) 50 mg PO BID #0 tabs 08/02/17 12/15/24 History atorvastatin 10 mg tablet (Lipitor) 10 mg PO QDAY 11/0712/15/24 History metoprolol succinate 25 mg 25 mg PO BID 02/21/2112/15 History tablet,extended release 24 hr citalopram 10 mg tablet 10 mg PO QDAY 06/28/2112/15 History doxepin 100 mg capsule 100 mg PO HS 06/28/21 History hydrocodone 10 mg-acetaminophen 1 tab PO Q6H PRN Pain 06/28/21 12/15/24 History 325 mg tablet pantoprazole 40 mg tablet,delayed 40 mg PO DAILY 06/2812/15/24 History release aripiprazole 5 mg tablet (Abilify) 5 mg PO QDAY 12/15/24 History sumatriptan succinate 50 mg tablet 100 mg PO Q2HR PRN BREAKTHROUGH 10/12/23 12/15/24 History (Imitrex) PAIN (MILD) #0 tabs mirabegron 25 mg tablet,extended 25 mg PO QDAY 4 12/15/24 History release 24 hr (Myrbetriq) oxybutynin chloride 10 mg 10 mg PO QDAY 02/11/2412/15 History tablet,extended release 24 hr Allergies Allergy/AdvReac Type Severity Reaction Status Date / Time Penicillins Allergy Intermediate Rash Verified 10/21/25 16:17 cephalexin (From Keflex) Allergy thrush in Verified 10/21/25 16:17 mouth, UTI morphine AdvReac Severe Difficulty Verified 10/21/25 16:17 Breathing Visit Medications Pantoprazole Sodium (Protonix/Ns 80mg Iv Premix) 80 mg in 100 mls @ 10 mls/hr IV X1 ONE Stop: 10/22/25 10:28 Last Admin: 10/22/25 00:46 Dose: 10 mls/hr Discontinued Medications Al Hydrox/Mg Hydrox/Simethicone (Mg Hyd/Al Hyd/Bety (Maalox Reg) Susp 30 Ml Udc) 30 ml PO X1 ONE Stop: 10/21/25 19:30 Last Admin: 10/21/25 19:51 Dose: 30 ml Ciprofloxacin/Dextrose (Cipro Ivpb) 400 mg in 200 mls @ 200 mls/hr IV STAT STA Stop: 10/22/25 00:11 Last Infusion: 10/22/25 00:43 Dose: Infused Lactated Ringer's (Lactated Ringers) 1,000 mls @ 999 mls/hr IV .Q1H1M ONE Stop: 10/22/25 00:20 Last Admin: 10/21/25 23:39 Dose: 999 mls/hr Pantoprazole Sodium (Protonix/Ns 80mg Iv Premix) 80 mg in 100 mls @ 400 mls/hr IV X1 ONE Stop: 10/22/25 00:43 Last Admin: 10/22/25 00:46 Dose: 400 mls/hr Lidocaine HCl (Lidocaine Viscous 2% 15 Ml Udc) 15 ml PO X1 ONE Stop: 10/21/25 19:30 Last Admin: 10/21/25 19:51 Dose: 15 ml Assessment & Plan Plan Summary: 75-year-old female past medical history of hypertension, GI bleed, and hernia repair in 2020 presented to the ED in the evening of 10/21/2025 with a several week history of midepigastric pain. Patient is a poor historian and giving one-word answers saying that she did not know to most of the questions. She was found to have a suspicion for SBO on CTAP. Patient had an episode of melena in the ED. Hemoglobin was 14.5, repeat was 13.3. Patient was started on a pantoprazole drip and given a liter bolus of fluids. GI was consulted. Patient was admitted for acute upper GI bleed. #Acute upper GI bleed * Patient presented with a several day/week history of midepigastric pain that was waxing and waning * CTAP without contrast showed retrocardiac gastric hernia * Patient had an episode of melena in the ED * Hemoglobin on arrival was 14.5, repeat 13.3 * Patient is status post incarcerated epigastric incisional hernia [place] [address] Miller * Consider bleeding gastric ulcer versus NSAID use: * Patient mentioned that she smokes half a pack of cigarettes daily which may reinforce ulcer formation * Patient also mentioned that she takes NSAIDs regularly Plan: * 2 large-bore IVs * Pantoprazole drip in ED * Pantoprazole 40 mg IV push twice daily * Avoiding NSAIDs, ASA, and chemical anticoagulation * NPO * GI Dr. Chino consulted #Possible SBO * CTAP showed fluid distended small bowel loops with concern for SBO * Due to the patient's melanotic bowel movement in the ED and drop in hemoglobin, more concern was placed on acute upper GI bleed * Tenderness was isolated to the mid epigastric region on physical exam, no distention Plan: * NPO * Small bowel follow-through #UTI * 1+ protein, 2+ ketones, 1+ blood, nitrite positive, 19 RBC, 23 WBC, 9 squamous epithelial cells, 4+ bacteria Plan: * Patient received ciprofloxacin 400 mg IV in the ED * Hospital team will start cefepime 2 g IV every 12 hours * Though patient is allergic to another type of cephalosporin, patient tolerated cefepime * Urine cultures pending * Blood cultures pending #Possible osteomyelitis discitis #Leukocytosis * CTAP showed cortical bone erosion involving contiguous endplates L2-L3 suspicious for osteomyelitis discitis * Patient had no pain to palpation over the lumbar spine * Patient is afebrile and has mild leukocytosis of 13.6, may make osteomyelitis less likely Plan: * MRI lumbar spine with and without contrast ordered #Systolic ejection murmur #Palpable thrill * Patient had a grade 5 out of 6 systolic ejection murmur across the entire chest area on auscultation * She had a palpable thrill on physical exam * Patient mentions that she sees a channel man but has not in a while Plan: * Echo ordered #Hypertension stage II * Per patient history * Patient presented with BP 171/85 Plan: * Consider restarting home blood pressure medication after med rec #Incidental finding of liver lesion #Incidental finding fat-containing femoral hernia * CTAP with contrast showed 27 mm left liver lobe lesion and Fat-containing femoral hernias but no bowel gas in these defects Plan: * No direct intervention at this time Hospital Maintenance: DVT ppx: SCDs, avoiding chemical in the presence of upper GI bleed GI ppx: Pantoprazole 40 mg IV push twice a day Diet: N.p.o. IV lines: Peripheral IVs Code status: Full code Dispo: Telemetry, pantoprazole for upper GI bleed, pending urine and blood cultures, GI consulted, echo ordered, MRI lumbar spine ordered. Patient was seen and discussed with my attending physician Dr. Padma KUO and my senior resident Dr. Sunday GARCIA PGY-2. Nazario Garza DO PGY-1.
--- NOTE | 2025-10-22 00:56 | PD.RESHP ---
Documentation for date of: 10/22/25 HPI History of Present Illness History of present illness: HPI: 75-year-old female past medical history of hypertension, GI bleed, and hernia repair in 2020 presented to the ED in the evening of 10/21/2025 with a several week history of midepigastric pain. Patient is a poor historian and giving one-word answers saying that she did not know to most of the questions. What was gathered and what was reported was the patient had a upper abdominal pain ongoing for several days. She was found to have a suspicion for SBO on CTAP. CTAP also showed cholelithiasis and a 27 mm left liver lobe lesion. Patient had an episode of melena in the ED. Hemoglobin was 14.5, repeat was 13.3. Patient was started on a pantoprazole drip and given a liter bolus of fluids. GI was consulted. Patient was admitted for upper GI bleed. ED Course: Significant vitals on arrival: BP 171/85. Remainder vitals within normal limits Significant labs: WBC 13.6, alk phos 140, hemoglobin 14.5, downtrended to 13.3. Imaging: Gallbladder ultrasound showed multiple gallstones CTAP without contrast showed retrocardiac gastric hernia, 5 mm splenic lesion, fluid distended small bowel loops with concern for SBO, cortical bone erosion involving contiguous endplates L2-L3 suspicious for osteomyelitis discitis EKG lots of artifact, difficult to interpret, showed a sinus rhythm with a rate of 79, QTc 397 Splenic ultrasound showed an 8.4 cm spleen with no lesions CTAP with contrast showed 27 mm left liver lobe lesion, fat-containing femoral hernias but no bowel gas in these defects, prominently fluid distended bowel in the upper right abdomen Urine: 1+ protein, 2+ ketones, 1+ blood, nitrite positive, 19 RBC, 23 WBC, 9 squamous epithelial cells, 4+ bacteria ED intervention: Patient was given a liter of LR and 80 mg pantoprazole IV and started on a pantoprazole drip. She also received 400 mg ciprofloxacin and lidocaine and Maalox. History: (Patient is a poor historian, mostly obtained from chart review) Past medical history: Hypertension, previous GI bleed Surgical history: Incarcerated epigastric incisional hernia [place] [address] Miller Social history: Smokes half pack of cigarettes a day, denies alcohol or illicit drug use. Allergies: Penicillin, causes rash Cephalexin, causes thrush in mouth, UTI Morphine, causes difficulty breathing Home Medications: (Pending Med Rec) Aripiprazole 5 mg daily Atorvastatin 10 mg daily Azelastine 1 spray intranasally twice a day Citalopram 10 mg daily Doxepin 100 mg nightly Duloxetine 60 mg twice a day [place] every 6 hours as needed Lisinopril 10 mg daily Metoprolol 25 mg twice a day Mirabegron 25 mg daily Oxybutynin 10 mg daily Pantoprazole 40 mg daily Sumatriptan 50 mg as needed Topiramate 50 mg twice a day CODE STATUS: Full Code Review of Systems Review of Systems Narrative Review of Systems: Review of Systems: General: Denies fevers, chills. HEENT: Denies headache, congestion, or sore throat. Cardiac: Denies chest pain or palpitations. Pulmonary: Denies shortness of breath or cough. GI: Admits to 1 episode of melena. Several week history of waxing and waning midepigastric pain. Denies nausea, vomiting, diarrhea, constipation. : Denies dysuria, hematuria, frequency, or urgency. MSK: Denies pain in the extremities, joints, or myalgias. Neuro: Denies weakness, numbness, vision changes, or speech difficulty. Exam Vital Signs Temp Pulse Resp BP Pulse Ox O2 Del Method 98.8 F 92 20 175/104 H 96 Room Air 10/22/25 00:03 10/22/25 00:03 10/22/25 00:03 10/22/25 00:03 10/22/25 00:03 10/22/25 00:03 Narrative Exam General: Frail thin lady. Has difficulty finding words. Awake and in no acute distress. Conversational and non-toxic appearing. Neurologic: Alert and oriented to self and place, not time. No gross neurological deficit, and patient able to move all 4 extremities. HEENT: Normocephalic, atraumatic, mucous membranes moist. Pupils reactive to light. Heart: Grade 5 out of 6 systolic ejection murmur heard over the entire chest area. Palpable thrill. Regular rate and rhythm. Lungs: Decreased breath sounds in the bases bilaterally. Abdomen: Pain on palpation of the mid epigastric region, no guarding or rebound tenderness. Extremities: No edema. 2+ radial and dorsalis pedis pulses bilaterally. Skin: Warm. Dry. No rash or ecchymoses. Results: Labs 10/22/25 04:32 10/21/25 17:35 Labs: Short CBC 10/21/25 10/22/25 Range/Units 17:35 00:00 WBC 13.6 H (3.6-11.0) Thou/mm3 Hgb 14.5 13.3 (12.0-16.0) g/dL Hct 45.2 41.4 (36.0-46.0) % Plt Count 391 (140-440) Thou/mm3 BMP 10/21/25 17:35 Sodium 142 Potassium 5.1 Chloride 107 Carbon Dioxide 26.3 BUN 17 Creatinine 0.8 Glucose 118 H Calcium 9.6 Cardiac Enzymes 10/21/25 Range/Units 17:35 Troponin I < 0.020 (0.0-0.045) ng/mL Liver Function 10/21/25 Range/Units 17:35 Total Bilirubin 0.4 (0.3-1.2) mg/dL AST 13 (0-34) U/L ALT < 7 L (10-49) U/L Alkaline Phosphatase 140 H (46-116) U/L Albumin 4.1 (3.4-4.8) gm/dL Urine 10/21/25 Range/Units 18:45 Urine Color Yellow (Lt Yel-Yel) Urine Clarity Clear (Clear/Hazy) Urine pH 6.0 (5.0-7.0) Ur Specific [place] 1.025 (1.001-1.035) Urine Protein 1+ A (Neg - Trace) Urine Glucose (UA) Negative (Negative) Quality Measures Quality Measures none Advance care planning discussed with:: patient Medications Home Medications and Allergies Home Medications ?Medication ?Instructions ?Recorded ?Confirmed ?Type azelastine 137 mcg (0.1 %) nasal 1 spray intranasal BID #0 spry 08/02/17 12/15/24 History spray duloxetine 60 mg capsule,delayed 60 mg PO BID #0 caps 08/02/17 12/15/24 History release (Cymbalta) lisinopril 10 mg tablet 10 mg PO QDAY #0 tabs 08/02/17 12/15/24 History topiramate 50 mg tablet (Topamax) 50 mg PO BID #0 tabs 08/02/17 12/15/24 History atorvastatin 10 mg tablet (Lipitor) 10 mg PO QDAY 12/04/18 12/15/24 History metoprolol succinate 25 mg 25 mg PO BID 02/21/21 12/15/24 History tablet,extended release 24 hr citalopram 10 mg tablet 10 mg PO QDAY 06/28/21 12/15/24 History doxepin 100 mg capsule 100 mg PO HS 06/28/21 12/15/24 History hydrocodone 10 mg-acetaminophen 1 tab PO Q6H PRN Pain 06/28/21 12/15/24 History 325 mg tablet pantoprazole 40 mg tablet,delayed 40 mg PO DAILY 06/28/21 12/15/24 History release aripiprazole 5 mg tablet (Abilify) 5 mg PO QDAY 10/12/23 12/15/24 History sumatriptan succinate 50 mg tablet 100 mg PO Q2HR PRN BREAKTHROUGH 10/12/23 12/15/24 History (Imitrex) PAIN (MILD) #0 tabs mirabegron 25 mg tablet,extended 25 mg PO QDAY 02/11/24 12/15/24 History release 24 hr (Myrbetriq) oxybutynin chloride 10 mg 10 mg PO QDAY 02/11/24 12/15/24 History tablet,extended release 24 hr Allergies Allergy/AdvReac Type Severity Reaction Status Date / Time Penicillins Allergy Intermediate Rash Verified 10/21/25 16:17 cephalexin (From Keflex) Allergy thrush in Verified 10/21/25 16:17 mouth, UTI morphine AdvReac Severe Difficulty Verified 10/21/25 16:17 Breathing Visit Medications Pantoprazole Sodium (Protonix/Ns 80mg Iv Premix) 80 mg in 100 mls @ 10 mls/hr IV X1 ONE Stop: 10/22/25 10:28 Last Admin: 10/22/25 00:46 Dose: 10 mls/hr Discontinued Medications Al Hydrox/Mg Hydrox/Simethicone (Mg Hyd/Al Hyd/Bety (Maalox Reg) Susp 30 Ml Udc) 30 ml PO X1 ONE Stop: 10/21/25 19:30 Last Admin: 10/21/25 19:51 Dose: 30 ml Ciprofloxacin/Dextrose (Cipro Ivpb) 400 mg in 200 mls @ 200 mls/hr IV STAT STA Stop: 10/22/25 00:11 Last Infusion: 10/22/25 00:43 Dose: Infused Lactated Ringer's (Lactated Ringers) 1,000 mls @ 999 mls/hr IV .Q1H1M ONE Stop: 10/22/25 00:20 Last Admin: 10/21/25 23:39 Dose: 999 mls/hr Pantoprazole Sodium (Protonix/Ns 80mg Iv Premix) 80 mg in 100 mls @ 400 mls/hr IV X1 ONE Stop: 10/22/25 00:43 Last Admin: 10/22/25 00:46 Dose: 400 mls/hr Lidocaine HCl (Lidocaine Viscous 2% 15 Ml Udc) 15 ml PO X1 ONE Stop: 10/21/25 19:30 Last Admin: 10/21/25 19:51 Dose: 15 ml Assessment & Plan Plan Summary: 75-year-old female past medical history of hypertension, GI bleed, and hernia repair in 2020 presented to the ED in the evening of 10/21/2025 with a several week history of midepigastric pain. Patient is a poor historian and giving one-word answers saying that she did not know to most of the questions. She was found to have a suspicion for SBO on CTAP. Patient had an episode of melena in the ED. Hemoglobin was 14.5, repeat was 13.3. Patient was started on a pantoprazole drip and given a liter bolus of fluids. GI was consulted. Patient was admitted for acute upper GI bleed. #Acute upper GI bleed Patient presented with a several day/week history of midepigastric pain that was waxing and waning CTAP without contrast showed retrocardiac gastric hernia Patient had an episode of melena in the ED Hemoglobin on arrival was 14.5, repeat 13.3 Patient is status post incarcerated epigastric incisional hernia [place] [address] Miller Consider bleeding gastric ulcer versus NSAID use: Patient mentioned that she smokes half a pack of cigarettes daily which may reinforce ulcer formation Patient also mentioned that she takes NSAIDs regularly Plan: 2 large-bore IVs Pantoprazole drip in ED Pantoprazole 40 mg IV push twice daily Avoiding NSAIDs, ASA, and chemical anticoagulation NPO GI Dr. Chino consulted #Possible SBO CTAP showed fluid distended small bowel loops with concern for SBO Due to the patient's melanotic bowel movement in the ED and drop in hemoglobin, more concern was placed on acute upper GI bleed Tenderness was isolated to the mid epigastric region on physical exam, no distention Plan: NPO Small bowel follow-through #UTI 1+ protein, 2+ ketones, 1+ blood, nitrite positive, 19 RBC, 23 WBC, 9 squamous epithelial cells, 4+ bacteria Plan: Patient received ciprofloxacin 400 mg IV in the ED Hospital team will start cefepime 2 g IV every 12 hours Though patient is allergic to another type of cephalosporin, patient tolerated cefepime Urine cultures pending Blood cultures pending #Possible osteomyelitis discitis #Leukocytosis CTAP showed cortical bone erosion involving contiguous endplates L2-L3 suspicious for osteomyelitis discitis Patient had no pain to palpation over the lumbar spine Patient is afebrile and has mild leukocytosis of 13.6, may make osteomyelitis less likely Plan: MRI lumbar spine with and without contrast ordered #Systolic ejection murmur #Palpable thrill Patient had a grade 5 out of 6 systolic ejection murmur across the entire chest area on auscultation She had a palpable thrill on physical exam 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 IV lines: Peripheral IVs Code status: Full code Dispo: Telemetry, pantoprazole for upper GI bleed, pending urine and blood cultures, GI consulted, echo ordered, MRI lumbar spine ordered. Patient was seen and discussed with my attending physician Dr. Padma KUO and my senior resident Dr. Sunday GARCIA PGY-2. Nazario Garza DO PGY-1.
--- NOTE | 2025-10-22 00:57 | PC.NURSE ---
this rn was assiting pt to the bathroom. this rn noticied bloody pants. dr. mcgill was made aware of possible melena.
--- NOTE | 2025-10-22 01:45 | ECHO_ITS ---
Patient Info Name: Zakiya Krishnan Age: 75 years : 1950 Gender: Female Ht: 157 cm Wt: 51 kg BSA: 1.49 m2 BP: 150 / 93 mmHg HR: 110 bpm Exam Date: 10/22/2025 6:38 AM Admit Date: 10/22/2025 Site: [facility] Room Number: [id number] Patient Status: I Exam Type: CA echo doppler complete Architect Naval: Radha Ortega Ordering Physician: Hugo Brand Study Info Indications Murmur and suspected osteomyelitis - Primary Location: [id number] Left Ventricular Outflow Tract Name Value Normal LVOT 2D LVOT Diameter 1.9 cm LVOT Doppler LVOT Peak Velocity 290 cm/s LVOT Mean Gradient 20 mmHg LVOT VTI 61 cm LVOT VTI/AV VTI Ratio 0.6 LVOT Stroke Volume 174 ml Pulmonic Valve Name Value Normal PV Doppler PV Peak Velocity 115 cm/s Mitral Valve Name Value Normal MV Doppler MV Mean Gradient 4 mmHg MV Decel Jennings 672 cm/s2 MV PHT 34 ms MV Area (PHT) 6.5 cm2 4.0-5.0 MV Area (Cont Eq VTI) 4.6 cm2 MV Regurgitation Doppler MV EROA (PISA) 0.25 cm2 MR Volume (PISA) 43 ml MV Diastolic Function MV E Peak Velocity 78 cm/s MV A Peak Velocity 149 cm/s MV E/A 0.5 MV Annular TDI MV Septal e' Velocity 5.4 cm/s MV E/e' (Septal) 14.4 MV Lateral e' Velocity 4.9 cm/s MV E/e' (Lateral) 15.9 MV e' Average 5.17 cm/s MV E/e' (Average) 15.1 Tricuspid Valve Name Value Normal TV Regurgitation Doppler TR Peak Velocity 296 cm/s Estimated PAP/RSVP RA Pressure 3 mmHg <=5 PA Systolic Pressure 38 mmHg <36 RV Systolic Pressure 38 mmHg <36 Aortic Valve Name Value Normal AV 2D/MM AV Cusp Sep (MM) 1.3 cm AV Doppler AV Peak Velocity 469 cm/s AV Mean Gradient 51 mmHg AV VTI 102 cm AV Area (Cont Eq VTI) 1.7 cm2 >=3.0 AV Area (Cont Eq Magdaleno) 1.8 cm2 AV DI (Magdaleno) 0.62 AV Regurgitation 2D LVOT Area 2.8 cm2 Ventricles Name Value Normal LV Dimensions 2D/MM LVOT Diameter 1.9 cm Atria Name Value Normal LA Dimensions LA Volume (4C A-L) 63 ml LA Volume (BP A-L) 73 ml Left Ventricle Left ventricular chamber dimension is normal. Unable to accurately determine LVEF. There is normal geometry noted in the left ventricle. Left ventricular segmental wall motion is normal. There is grade I diastolic dysfunction in the left ventricle. Right Ventricle Right ventricular chamber dimension is normal. Right ventricular systolic function is normal. Left Atrium Left atrial chamber dimension is mildly enlarged. Right Atrium Right atrial chamber dimension is normal. Aortic Valve The aortic valve is trileaflet. There is moderate aortic valve sclerosis. There is mild to moderate aortic valve stenosis with a peak velocity of 469 cm/s, mean gradient of 51 mmHg, and aortic valve area of 1.7 cm2. There is no aortic valve regurgitation. There is. Pulmonic Valve The pulmonic valve is normal. There is no pulmonic valve stenosis. There is no pulmonic regurgitation. Mitral Valve The mitral valve has normal leaflets. There is mild to moderate mitral valve stenosis. There is mild to moderate mitral valve regurgitation. Tricuspid Valve The tricuspid valve leaflets are normal. There is no tricuspid valve stenosis. There is mild tricuspid valve regurgitation. Pulmonary hypertension, estimated pulmonary arterial systolic pressure is 38 mmHg and systemic blood pressure of 150 mmHg in systole. Pericardium/Pleural The pericardium appears normal. There is no pericardial effusion. No pleural effusion visualized. Inferior Vena Cava Normal inferior vena cava with >50% collapse upon inspiration consistent with normal right atrial pressure, 3 mmHg. Aorta The aortic measurements are indexed to age and body surface area. The aortic root at the sinus of Valsalva is not well visualized. The prox ascending aorta is not well visualized. Summary 1. Left ventricle size is normal and systolic function is normal. Estimated ejection fraction is 60-65%. There is grade I diastolic dysfunction. 2. Right ventricle chamber size is normal and systolic function is normal. Estimated RVSP is 38 mmHg with RAP 3. 3. There is mild aortic valve sclerosis with severe stenosis and no regurgitation. V-max of 4 m/s/, mean PG of 51mmHg and a peak PG of 88 mmHg. JAYLEEN 1.1 cm2. 4. There is mild to moderate mitral valve stenosis and mild to moderate regurgitation. 5. The mitral valve has normal leaflets. 6. There is mild tricuspid valve regurgitation. 7. The left atrium is mildly enlarged. The right atrium is normal. 8. Normal IVC with estimated RA pressure 3 mmHg. Report Signatures Finalized by Jazmin Mckay on 10/22/2025 03:55 PM
[2025-10-22] MEDS: CEFEPIME INJ 2 GM in SODIUM CHLORIDE 0.9% (Popper) 50 ML IV ×3 (02:11→21:06)
[2025-10-22] MEDS: VANCOMYCIN/NS 1 GM IVPB 200 ML IV (02:38)
[2025-10-22] MEDS: RINGERS LACTATED 1000 ML 1,000 ML 75 ML IV (02:38)
[2025-10-22 02:49] LABS: C-Reactive Protein 4.6 mg/dL (0.0-0.9); Cardiac Risk Estimate 1.8 RATIO (3.7-5.6); Cholesterol 93 mg/dL (132-200); HDL Cholesterol 53 mg/dL (40-60); LDL Cholesterol,Calculated 24 mg/dL (0-130); Thyroid Stimulating Hormone 1.04 uIU/mL (0.55-4.78); Triglycerides 82 mg/dL (30-150)
[2025-10-22 02:54] LABS: Sed Rate (ESR) 26 mm/hr (0-30)
[2025-10-22 04:59] LABS: Basophils # (Auto) 0.0 Thou/mm3 (0.0-0.2); Basophils % (Auto) 0 % (0-2.5); Eosinophils # (Auto) 0.0 Thou/mm3 (0.0-0.5); Eosinophils % (Auto) 0 % (0-10); Hematocrit 39.7 % (36.0-46.0); Hemoglobin 12.8 g/dL (12.0-16.0); Immature Granulocytes Auto 0.05 Thou/mm3 (0.00-0.00); Lymphocytes # (Auto) 1.4 Thou/mm3 (1.0-4.8); Lymphocytes % (Auto) 11 % (10-50); Mean Corpuscular HGB Conc 32.2 g/dl (31.0-37.0); Mean Corpuscular Hemoglobin 27.4 pg (25.0-35.0); Mean Corpuscular Volume 85 fL (80-100); Monocytes # (Auto) 0.9 Thou/mm3 (0.0-0.8); Monocytes % (Auto) 7 % (0-12); Neutrophils # (Auto) 11.0 Thou/mm3 (1.8-7.7); Neutrophils % (Auto) 82 % (37-80); Nucleated Red Blood Cell # 0.00 Thou/mm3 (0.00-0.00); Nucleated Red Blood Cell % 0 /100 WBC (0); Platelet Count 309 Thou/mm3 (140-440); RDW Standard Deviation 43.7 fL (36.4-46.3); Red Blood Count 4.67 Miln/mm3 (4.00-5.20); White Blood Count 13.4 Thou/mm3 (3.6-11.0)
[2025-10-22 05:20] LABS: Glucose Estimated Average 117 mg/dL (80-131); Hemoglobin A1C 5.7 % Hgb (4.8-6.0)
[2025-10-22 06:13] LABS: Alanine Aminotransferase < 7 U/L (10-49); Albumin, Serum 3.5 gm/dL (3.4-4.8); Albumin/Globulin Ratio 1.8 (1.2-2.2); Alkaline Phosphatase 113 U/L (46-116); Anion Gap 11 (7-16); Aspartate Amino Transferase 12 U/L (0-34); BUN/Creatinine Ratio 20 Ratio (12-20); Bilirubin,Total 0.4 mg/dL (0.3-1.2); Blood Urea Nitrogen 14 mg/dL (9-23); Calcium 8.7 mg/dL (8.3-10.6); Calcium (Corrected) 9.1 mg/dL (8.5-10.1); Carbon Dioxide 22.9 mMol/L (20.0-31.0); Chloride 110 mMol/L (98-107); Creatinine (Component) 0.7 mg/dL (0.6-1.3); Estimated Creatinine Clearance 55.8 mL/min (>60); Globulin 2.0 gm/dL (2.3-3.5); Glucose 107 mg/dL (74-106); Magnesium 2.0 mg/dL (1.6-2.6); Osmolality,Calculated 287 (275-295); Potassium 3.9 mMol/L (3.4-5.1); Sodium 144 mMol/L (136-145); Total Protein 5.5 gm/dL (5.7-8.2); eGFR > 60 See Note
[2025-10-22] MEDS: DULoxetine HCL 30 MG CAPSULE 60 MG PO ×2 (09:06→21:00)
[2025-10-22] MEDS: OXYBUTYNIN CHLOR XL 5 MG TABER 10 MG PO (09:06)
[2025-10-22] MEDS: CITALOPRAM 20 MG TABLET 10 MG PO (09:07)
[2025-10-22] MEDS: METOPROLOL SUCCINATE XL 25 MG TABCR PO ×2 (09:07→21:00)
[2025-10-22 12:17] LABS: OBS Developer Expiration Date 03/31/2026; OBS Developer Lot # 23002; OBS QC OK? Yes; Occult Blood, Stool Positive (Negative)
[2025-10-22 12:55] LABS: AFP Non-Pregnant < 1.30 ng/mL (<8.10); CA 125 12.0 U/mL (<30.2); Carcinoembryonic Antigen 2.7 ng/mL (0.0-5.0)
--- NOTE | 2025-10-22 15:12 | XR_ITS ---
Examination: CT brain head without contrast. 2-D sagittal coronal reconstructions Date and time of exam: October 22, 2025, 1837 hours, comparison March 19, 2025 INDICATIONS: Onset headache today CTDI: vol (mGy): 44.4 DLP: (mGycm): 922 Technique: Multiple CT axial sections of the brain have been obtained, 5 mm slice thickness. Contrast has not been administered. 2-D sagittal, coronal reconstructions have been obtained Low dose protocols were performed. One or more of the following dose reduction techniques were used; automated exposure control, adjustment of the mA and/or KV according to patient size, use of iterative reconstruction technique. Findings: No significant ventricular enlargement. Intra-axial or extra-axial hemorrhage density is not seen. No mass effect or midline shift Basal cisterns are not remarkable. Fourth ventricle is midline. Cranial vault intact. Impression: Negative for acute hemorrhage, mass effect or midline shift Advise clinical correlation and follow-up accordingly
--- NOTE | 2025-10-22 15:41 | ESPR_ITS ---
<Statement entered by Mansoor Angulo MD - 10/23/25 15:38> Patient was examined and case was reviewed with team including attending physician. Note reviewed, I agree with most of its contents and agree with the patient's care as documented by Dr. Morales Angulo MD PGY-2 Documentation for date of: 10/22/25 Subjective Subjective Interval history: Ms. Krishnan is a 75 years old female with history of hyperlipidemia, depression, hypertension, heart murmur, overactive bladder, CKD II, and cervical fracture presented initially to the ED on 10/21/25 for epigastric pain. In the ED, she was noted to have melena. Abdomen/pelvis CT without contrast showed retrocardiac gastric hernia, 5 mm splenic lesion, cortical erosions contiguous endplates L2- L3, suspicious for osteomyelitis discitis. Abdomen/pelvis with contrast showed 27 mm left lobe liver lesion with prominently fluid distended bowel in the upper right abdomen. SBFT revealed no small bowel obstruction. She was admitted for suspected GI bleed and suspicious osteomyelitis. 10/22/25: NAOE. Upon interviewing patient at bedside, patient seemed to have trouble with short term memory retention as she would forget the conversations we had. Patient is a/o x 2 (name, time, but not place), GCS 15. Will continue broad spectrum antibiotic for now for osteomyelitis while awaiting for MRI result. CT head ordered to r/o intracranial pathology. NPO for now pending GI recs. Exam Vital Signs Temp Pulse Resp BP Pulse Ox O2 Del Method 97.3 F 91 20 127/95 H 98 Room Air 10/22/25 12:10/22/25 12:10/22/25 12:10/22/25 12:10/22/25 12:10/22/25 12:00 Narrative Exam General: Alert, but disoriented, in no acute distress. GCS15. HEENT: Normocephalic, atraumatic. Neck: Supple, no JVD, no lymphadenopathy or thyroid enlargement. Cardiovascular: Regular rate and rhythm. Loud systolic murmur radiating to bilateral carotids. Respiratory: Clear to auscultation bilaterally. No wheezes, rales, or rhonchi. Normal respiratory effort. Abdomen: Soft, nondistended, but TTP at epigastric and LUQ. No masses or organomegaly. Musculoskeletal: Full range of motion in all extremities. No joint swelling, tenderness, or deformities. Skin: Warm, dry, intact. No rashes or lesions. Neurological: A/O x 2. (name, time, not place) Sensation intact. Normal strength and coordination. Psychiatric: Calm, cooperative, confused at time. Short term memory loss. Objective Labs 10/23/25 04:50 10/23/25 04:50 Labs: Laboratory Results - last 24 hr 10/21/25 10/21/25 10/21/25 17:35 18:45 23:27 WBC 13.6 H RBC 5.32 H Hgb 14.5 Hct 45.2 MCV 85 MCH 27.3 MCHC 32.1 RDW Std Deviation 43.9 Plt Count 391 Neut % (Auto) 87 H Lymph % (Auto) 9 L [place] % (Auto) 4 Eos % (Auto) 0 Baso % (Auto) 0 Neut # (Auto) 11.8 H Lymph # (Auto) 1.2 [place] # (Auto) 0.6 Eos # (Auto) 0.0 Baso # (Auto) 0.0 Immature Gran # (Auto) 0.05 H Absolute Nucleated RBC 0.00 Immature Gran % 0 Nucleated RBC % 0 ESR Sodium 142 Potassium 5.1 Chloride 107 Carbon Dioxide 26.3 Anion Gap 9 BUN 17 Creatinine 0.8 Estim Creat Clear Calc 48.8 L eGFR > 60 BUN/Creatinine Ratio 21 H Glucose [address] Glu mg/dL Hemoglobin A1c Calculated Osmolality 285 Lactic Acid 1.0 Calcium 9.6 Corrected Calcium 9.6 Magnesium Total Bilirubin 0.4 AST 13 ALT < 7 L Alkaline Phosphatase 140 H Troponin I < 0.020 C-Reactive Prot, Quant Total Protein 6.6 Albumin 4.1 Globulin 2.5 Albumin/Globulin Ratio 1.6 Triglycerides Cholesterol LDL Cholesterol, Calc HDL Cholesterol Cholesterol/HDL Ratio Lipase 25 Tumor Marker AFP Carcinoembryonic Ag CA 125 Antigen TSH Ur Collection Type Clean Catch Urine Color Yellow Urine Clarity Clear Urine pH 6.0 Ur Specific [place] 1.025 Urine Protein 1+ A Urine Glucose (UA) Negative Urine Ketones 2+ A Urine Blood 1+ A Urine Nitrite Positive A Urine Bilirubin Negative Urine Urobilinogen (Auto) 1.0 Ur Leukocyte Esterase Negative Urine RBC 19 H Urine WBC 23 H Ur Squamous Epith Cells 9 H Urine Bacteria 4+ A Ur Culture Indicated? Yes Stool Occult Blood 10/22/25 10/22/25 10/22/25 00:00 01:45 04:32 WBC 13.4 H RBC 4.67 Hgb 13.3 12.8 Hct 41.4 39.7 MCV 85 MCH 27.4 MCHC 32.2 RDW Std Deviation 43.7 Plt Count 309 D Neut % (Auto) 82 H Lymph % (Auto) 11 [place] % (Auto) 7 Eos % (Auto) 0 Baso % (Auto) 0 Neut # (Auto) 11.0 H Lymph # (Auto) 1.4 [place] # (Auto) 0.9 H Eos # (Auto) 0.0 Baso # (Auto) 0.0 Immature Gran # (Auto) 0.05 H Absolute Nucleated RBC 0.00 Immature Gran % 0 Nucleated RBC % 0 ESR 26 Sodium 144 Potassium 3.9 D Chloride 110 H Carbon Dioxide 22.9 Anion Gap 11 BUN 14 Creatinine 0.7 Estim Creat Clear Calc 55.8 L eGFR > 60 BUN/Creatinine Ratio [address]ucose [address] Glu mg/dL 117 Hemoglobin A1c 5.7 Calculated Osmolality 287 Lactic Acid Calcium 8.7 Corrected Calcium 9.1 Magnesium 2.0 Total Bilirubin 0.4 AST 12 ALT < 7 L Alkaline Phosphatase 113 D Troponin I C-Reactive Prot, Quant 4.6 H Total Protein 5.5 L Albumin 3.5 D Globulin 2.0 L Albumin/Globulin Ratio 1.8 Triglycerides 82 Cholesterol 93 L LDL Cholesterol, Calc 24 HDL Cholesterol 53 Cholesterol/HDL Ratio 1.8 L Lipase Tumor Marker AFP < 1.30 Carcinoembryonic Ag 2.7 CA 125 Antigen 12.0 TSH 1.04 Ur Collection Type Urine Color Urine Clarity Urine pH Ur Specific [place] Urine Protein Urine Glucose (UA) Urine Ketones Urine Blood Urine Nitrite Urine Bilirubin Urine Urobilinogen (Auto) Ur Leukocyte Esterase Urine RBC Urine WBC Ur Squamous Epith Cells Urine Bacteria Ur Culture Indicated? Stool Occult Blood 10/22/25 06:15 WBC RBC Hgb Hct MCV MCH MCHC RDW Std Deviation Plt Count Neut % (Auto) Lymph % (Auto) [place] % (Auto) Eos % (Auto) Baso % (Auto) Neut # (Auto) Lymph # (Auto) [place] # (Auto) Eos # (Auto) Baso # (Auto) Immature Gran # (Auto) Absolute Nucleated RBC Immature Gran % Nucleated RBC % ESR Sodium Potassium Chloride Carbon Dioxide Anion Gap BUN Creatinine Estim Creat Clear Calc eGFR BUN/Creatinine Ratio Glucose Estimated Ave Glu mg/dL Hemoglobin A1c Calculated Osmolality Lactic Acid Calcium Corrected Calcium Magnesium Total Bilirubin AST ALT Alkaline Phosphatase Troponin I C-Reactive Prot, Quant Total Protein Albumin Globulin Albumin/Globulin Ratio Triglycerides Cholesterol LDL Cholesterol, Calc HDL Cholesterol Cholesterol/HDL Ratio Lipase Tumor Marker AFP Carcinoembryonic Ag CA 125 Antigen TSH Ur Collection Type Urine Color Urine Clarity Urine pH Ur Specific [place] Urine Protein Urine Glucose (UA) Urine Ketones Urine Blood Urine Nitrite Urine Bilirubin Urine Urobilinogen (Auto) Ur Leukocyte Esterase Urine RBC Urine WBC Ur Squamous Epith Cells Urine Bacteria Ur Culture Indicated? Stool Occult Blood Positive A Quality Measures Quality Measures none Advance care planning discussed with:: patient Assessment & Plan Assessment Current Active Medications: Generic Name Dose Route Start Last Admin Trade Name Freq PRN Reason Stop Dose Admin Hydrocodone Bitart/Acetaminophen 1 tab 10/22/25 05:51 Hydrocodone/Apap 10/325 Tab PO 10/27/25 05:50 Q6H PRN Pain 7-10 Citalopram Hydrobromide 10 mg 10/22/25 09:00 10/22/25 09:07 Citalopram 20 Mg Tablet PO 11/21/25 08:59 10 mg QDAY CRISTO Administration Doxepin HCl 100 mg 10/22/25 21:00 Doxepin Hcl 25 Mg Capsule PO 11/21/25 20:59 HS CRISTO Duloxetine HCl 60 mg 10/22/25 09:00 10/22/25 09:06 Duloxetine Hcl 30 Mg Capsule PO 11/21/25 08:59 60 mg BID CRISTO Administration Cefepime HCl 2 gm/ Sodium 50 mls @ 100 mls/hr 10/22/25 09:00 10/22/25 09:06 Chloride IV 10/29/25 08:59 100 mls/hr Q12HR CRISTO Administration Vancomycin HCl 750 mg/ Sodium 250 mls @ 200 mls/hr 10/22/25 22:00 Chloride IV 10/29/25 21:59 BID@1000,2200 CRISTO Protocol Lisinopril 10 mg 10/22/25 09:00 10/22/25 09:06 Lisinopril 2.5 Mg Tablet PO 11/21/25 08:59 10 mg QDAY CRISTO Administration Metoprolol Succinate 25 mg 10/22/25 09:00 10/22/25 09:07 Metoprolol Succinate Xl 25 Mg Tabcr PO 11/21/25 08:59 25 mg BID CRISTO Administration Non-Formulary Medication 25 mg 10/22/25 09:00 Mirabegron [Myrbetriq] PO 11/21/25 08:59 QDAY CRISTO Ondansetron HCl 4 mg 10/22/25 01:56 Ondansetron Inj 2 Mg/Ml Inj 2 Ml IVP 11/21/25 01:55 Q8HR PRN NAUSEA OR VOMITING Protocol Oxybutynin Chloride 10 mg 10/22/25 09:00 10/22/25 09:06 Oxybutynin Chlor Xl 5 Mg Priyanka PO 11/21/25 08:59 10 mg QDAY CRISTO Administration Pantoprazole Sodium 40 mg 10/22/25 21:00 Pantoprazole Inj 40 Mg Vial IVP 11/21/25 20:59 BID CRISTO Pharmacy Consult 1 each 10/22/25 09:00 Vancomycin Pharmacy To Dose 1 Each Each IV 11/21/25 08:59 QDAY PRN PROTOCOL Plan Ms. Krishnan is a 75 years old female with history of hyperlipidemia, depression, hypertension, heart murmur, overactive bladder, CKD II, and cervical fracture presented epigastric pain. Poor historian. She was admitted for suspected GI bleed and suspicious osteomyelitis. #Possible osteomyelitis discitis #Leukocytosis CTAP showed cortical bone erosion involving contiguous endplates L2-L3 suspicious for osteomyelitis discitis Patient had no pain to palpation over the lumbar spine Patient is afebrile and had mild leukocytosis of 13.6, may make osteomyelitis less likely - MRI lumbar spine with and without contrast ordered - Continue cefepine 2g Q12H and vancomycin for now #Acute upper GI bleed #Gastric hernia #Melena #S/p epigastric incisional hernia repair (2020) #GERD Patient presented with a several day/week history of midepigastric pain that was waxing and waning CTAP without contrast showed retrocardiac gastric hernia Patient had an episode of melena in the ED Hemoglobin on arrival was 14.5, repeat 13.3 Patient is status post incarcerated epigastric incisional hernia [place] [address] Miller - Pantoprazole drip in ED - Pantoprazole 40 mg IV push twice daily - Avoiding NSAIDs, ASA, and chemical anticoagulation - NPO for now, pending GI recs - GI Dr. Chino consulted, appreciate recs - Daily CBC - Transfuse if Hgb < 7 #Asymptomatic bacteruria #History of recurrent urinary tract infections Initial UA: 1+ protein, 2+ ketones, 1+ blood, nitrite positive, 19 RBC, 23 WBC, 9 squamous epithelial cells, 4+ bacteria - repeat UA ordered, as first sample likely contaminated - Patient received ciprofloxacin 400 mg IV in the ED - Continue cefepime 2 g IV every 12 hours - Though patient is allergic to another type of cephalosporin, patient tolerated cefepime - Urine cultures pending - Blood cultures pending #Incidental finding of liver lesion #Incidental finding fat-containing femoral hernia CTAP with contrast showed 27 mm left liver lobe lesion and Fat-containing femoral hernias but no bowel gas in these defects - No direct intervention at this time - Negative for AFP, CEA, CA125, pending CA199. - Outpatient management #Depression - chronic medical problem - Continue home duloxetine 60mg BID, citalopram 10mg QD, and Doxepin 100mg PO HS. - EKG 10/21/25 with QTc of 397. - Replete electrolyte with goal of Mg > 2. 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 Left ventricle size is normal and systolic function is normal. Estimated ejection fraction is 60-65%. There is grade I diastolic dysfunction. - Outpatient management #SBO - ruled out CTAP showed fluid distended small bowel loops with concern for SBO Patient denied nausea, vomiting, food intolerance, and reported recent bowel movement prior to admission Tenderness was isolated to the mid epigastric region on physical exam, no distention - NPO - Small bowel follow-through negative for SBO Health maintenance Dispo: Pending MRI for osteomyelitis confirmation DVT prophylaxis: SCDs GI prophylaxis: Protonix 40mg BID Antibiotics: Cefepime and vanco Bowel Regimen: N/A Diet: NPO Lines: Peripheral IV Code status: Full code Case discussed with my senior resident Dr. Vigil Case discussed with my attending Dr. Marce Hagan Morales, PGY 1 Attending Provider Attestation/Addendum I have examined the patient, reviewed labs and imaging findings, discussed the case with the resident(s), and reviewed entered orders. I agree with the plan of care as outlined in this note. Dr. Marce MD
[2025-10-22 16:02] LABS: Ammonia 11 uMol/L (11-32)
--- NOTE | 2025-10-22 19:45 | PD.IMCONS ---
HPI Data of Consult Requesting Physician: William Rouse DO Primary Care Provider: Physician No Primary/Family Consult Narrative Reason for consult: Pain abdomen, melena, dysuria, nonbloody diarrhea. History of present illness: 75 years old female who is not a good historian I been consulted for melanotic stools She presented with pain abdomen dysuria nonbloody diarrhea and melanotic stools She has a longstanding history of gastric bypass depression hypertension hyperlipidemia chronic low back pain for which she takes pain medications bladder surgery which is Mason procedure hysterectomy TNA and ankle surgery She also had incarcerated ventral hernia repair by Dr Miller She also has a C7 fracture history CT scan of the abdomen pelvis with contrast showed a 27 mm left lobe lesion of fluid distended small bowel fat-containing femoral hernia and a small lesion in the spleen Splenic ultrasound shows spleen size of 8.4 cm no splenic lesions seen Presenting WBC count was 13.4 hemoglobin hematocrit 12.8 and 39.7 with a platelet count of 309,000 cc:: cc: William Rouse DO Review of Systems Review of Systems Systems Reviewed: All systems reviewed, normal except as documented Past Medical History Surgical History OTHER SURGICAL HX: As in the history of present illness Meds Home Medications and Allergies Home Medications ?Medication ?Instructions ?Recorded ?Confirmed ?Type azelastine 137 mcg (0.1 %) nasal 1 spray intranasal BID #0 spry 08/02/17 10/22/25 History spray duloxetine 60 mg capsule,delayed 60 mg PO BID #0 caps 08/02/17 10/22/25 History release (Cymbalta) lisinopril 10 mg tablet 10 mg PO QDAY #0 tabs 08/02/17 10/22/25 History atorvastatin 10 mg tablet (Lipitor) 10 mg PO QDAY 12/04/18 10/22/25 History metoprolol succinate 25 mg 25 mg PO BID 02/21/21 10/22/25 History tablet,extended release 24 hr citalopram 10 mg tablet 10 mg PO QDAY 06/28/21 10/22/25 History doxepin 100 mg capsule 100 mg PO HS 06/28/21 10/22/25 History hydrocodone 10 mg-acetaminophen 1 tab PO Q6H PRN Pain 06/28/21 10/22/25 History 325 mg tablet pantoprazole 40 mg tablet,delayed 40 mg PO DAILY 06/28/21 10/22/25 History release aripiprazole 5 mg tablet (Abilify) 5 mg PO QDAY 10/12/23 10/22/25 History sumatriptan succinate 50 mg tablet 100 mg PO Q2HR PRN BREAKTHROUGH 10/12/23 10/22/25 History (Imitrex) PAIN (MILD) #0 tabs mirabegron 25 mg tablet,extended 25 mg PO QDAY 02/11/24 10/22/25 History release 24 hr (Myrbetriq) oxybutynin chloride 10 mg 10 mg PO QDAY 02/11/24 10/22/25 History tablet,extended release 24 hr Allergies Allergy/AdvReac Type Severity Reaction Status Date / Time Penicillins Allergy Intermediate Rash Verified 10/21/25 16:17 cephalexin (From Keflex) Allergy thrush in Verified 10/21/25 16:17 mouth, UTI morphine AdvReac Severe Difficulty Verified 10/21/25 16:17 Breathing Exam Vital Signs Temp Pulse Resp BP Pulse Ox O2 Del Method 97.3 F 88 16 147/96 H 96 Room Air 10/22/25 16:00 10/22/25 16:00 10/22/25 16:00 10/22/25 16:00 10/22/25 16:00 10/22/25 16:00 Constitutional Comments: Chronically ill-appearing Routine Respiratory Exam Comments: Normal to auscultation Routine Abdominal Exam Comments: Nonlocalizing tenderness Results Labs 10/22/25 04:32 10/22/25 04:32 Labs: Short CBC 10/22/25 10/22/25 Range/Units 00:00 04:32 WBC 13.4 H (3.6-11.0) Thou/mm3 Hgb 13.3 12.8 (12.0-16.0) g/dL Hct 41.4 39.7 (36.0-46.0) % Plt Count 309 D (140-440) Thou/mm3 BMP 10/22/25 04:32 Sodium 144 Potassium 3.9 D Chloride 110 H Carbon Dioxide 22.9 BUN 14 Creatinine 0.7 Glucose 107 H Calcium 8.7 Liver Function 10/22/25 Range/Units 04:32 Total Bilirubin 0.4 (0.3-1.2) mg/dL AST 12 (0-34) U/L ALT < 7 L (10-49) U/L Alkaline Phosphatase 113 D (46-116) U/L Albumin 3.5 D (3.4-4.8) gm/dL Assessment and Plan Additional Assessment & Plan Additional Plan: # Melena etiology uncertain Plan Consent obtained for fiberoptic esophagogastroduodenoscopy biopsy therapeutic intervention under intravenous moderate sedation scheduled for tomorrow Clear liquid diet till 12 midnight then n.p.o. # Dilated loops of small bowel but no evidence of small bowel obstruction on small bowel follow-through probably resolving ileus # Recurrent UTI Multiple medical issues as follows Status post gastric bypass procedure Status post incarcerated ventral hernia repair Depression Hyperlipidemia Chronic low back pain Status post Mason procedure hysterectomy T&A and ankle surgery C7 fracture Thank you very much for the opportunity to participate in the care of this patient
[2025-10-22] MEDS: DOXEPIN HCL 25 MG CAPSULE 100 MG PO (21:00)
[2025-10-22] MEDS: Vancomycin Inj 750 MG in SODIUM CHLORIDE 0.9% 250 ML 250 ML 200 MG IV (22:33)
[2025-10-23] VITALS (19 sets, daily range): BP systolic 112–165; BP diastolic 73–95; PULSE 60–98; RESP 9–97; TEMP 36.1–37.2; O2SAT 93–100
--- NOTE | 2025-10-23 | XR_ITS ---
Examination: MRI lumbar spine, without intravenous contrast. MRI lumbar spine, with intravenous contrast. Exam date and time: October 23, 2025, 1241 hours INDICATIONS: CT examination October 21, 2025 cortical bone destruction contiguous endplates L2-L3 Technique: Multiple axial, sagittal and coronal images of the lumbar spine have been obtained with the Siemens high-resolution 1.5 Janelle MRI scanner. Images obtained included T2 weighted fat suppressed sagittal sections, TR 3500, TE 46, T2 weighted coronal fat suppressed images, TR 3050, TE 84, T2-weighted transverse fat suppressed images, TR 30-60, TE 63, proton density transverse images, TR 4720, TE 46, and T1 weighted coronal images, TR 560, TE 13. Axial, sagittal and coronal images are obtained post intravenous injection 10 cc gadolinium. Findings: Grade 1 anterolisthesis L4 on L5 Advanced degenerative disc disease L2-3, L4-L5 Cortical bone obstruction involving the contiguous margins L2-L3 Postcontrast images do not demonstrate any significant enhancement at this level L5-S1 2 mm central lumbar disc bulge L4-L5 grade 1 anterolisthesis which produces moderate left L4 ganglionic compression L3-L4 no disc protrusion L2-L3 3 mm right paracentral subarticular disc bulge L2-L3 no disc protrusion L1-L2 no disc protrusion IMPRESSION: Advanced degenerative disc disease at L2-L3, L4-L5 Postcontrast images do not confirm osteomyelitis discitis at the L2-L3 level
[2025-10-23 05:55] LABS: Basophils # (Auto) 0.0 Thou/mm3 (0.0-0.2); Basophils % (Auto) 0 % (0-2.5); Eosinophils # (Auto) 0.1 Thou/mm3 (0.0-0.5); Eosinophils % (Auto) 1 % (0-10); Hematocrit 33.4 % (36.0-46.0); Hemoglobin 10.9 g/dL (12.0-16.0); Immature Granulocytes Auto 0.04 Thou/mm3 (0.00-0.00); Lymphocytes # (Auto) 1.8 Thou/mm3 (1.0-4.8); Lymphocytes % (Auto) 20 % (10-50); Mean Corpuscular HGB Conc 32.6 g/dl (31.0-37.0); Mean Corpuscular Hemoglobin 27.9 pg (25.0-35.0); Mean Corpuscular Volume 85 fL (80-100); Monocytes # (Auto) 0.6 Thou/mm3 (0.0-0.8); Monocytes % (Auto) 7 % (0-12); Neutrophils # (Auto) 6.3 Thou/mm3 (1.8-7.7); Neutrophils % (Auto) 71 % (37-80); Nucleated Red Blood Cell # 0.00 Thou/mm3 (0.00-0.00); Nucleated Red Blood Cell % 0 /100 WBC (0); Platelet Count 252 Thou/mm3 (140-440); RDW Standard Deviation 44.3 fL (36.4-46.3); Red Blood Count 3.91 Miln/mm3 (4.00-5.20); White Blood Count 8.9 Thou/mm3 (3.6-11.0)
[2025-10-23 06:40] LABS: Alanine Aminotransferase < 7 U/L (10-49); Albumin, Serum 2.9 gm/dL (3.4-4.8); Albumin/Globulin Ratio 1.5 (1.2-2.2); Alkaline Phosphatase 91 U/L (46-116); Anion Gap 7 (7-16); Aspartate Amino Transferase 13 U/L (0-34); BUN/Creatinine Ratio 16 Ratio (12-20); Bilirubin,Total 0.2 mg/dL (0.3-1.2); Blood Urea Nitrogen 13 mg/dL (9-23); Calcium 8.6 mg/dL (8.3-10.6); Calcium (Corrected) 9.5 mg/dL (8.5-10.1); Carbon Dioxide 26.4 mMol/L (20.0-31.0); Chloride 110 mMol/L (98-107); Creatinine (Component) 0.8 mg/dL (0.6-1.3); Estimated Creatinine Clearance 48.8 mL/min (>60); Globulin 1.9 gm/dL (2.3-3.5); Glucose 86 mg/dL (74-106); Magnesium 1.9 mg/dL (1.6-2.6); Osmolality,Calculated 284 (275-295); Phosphorous 2.5 mg/dL (2.4-5.1); Potassium 4.2 mMol/L (3.4-5.1); Sodium 143 mMol/L (136-145); Total Protein 4.8 gm/dL (5.7-8.2); eGFR > 60 See Note
[2025-10-23 06:59] LABS: Hepatitis A Antibody IgM Non Reactive (Non React); Hepatitis B Core Antibody IgM Non Reactive (Non React); Hepatitis B Surface Antigen Non Reactive (Non React); Hepatitis C Antibody Non Reactive (Non React)
[2025-10-23] MEDS: OXYBUTYNIN CHLOR XL 5 MG TABER 10 MG PO (08:33)
[2025-10-23] MEDS: CITALOPRAM 20 MG TABLET 10 MG PO (08:35)
[2025-10-23] MEDS: CEFEPIME INJ 2 GM in SODIUM CHLORIDE 0.9% (Popper) 50 ML IV (08:35)
[2025-10-23] MEDS: DULoxetine HCL 30 MG CAPSULE 60 MG PO ×2 (08:35→20:45)
[2025-10-23] MEDS: METOPROLOL SUCCINATE XL 25 MG TABCR PO ×2 (08:36→20:45)
--- NOTE | 2025-10-23 09:43 | ESPR_ITS ---
<Statement entered by Mansoor Angulo MD - 10/23/25 14:44> Patient was examined and case was reviewed with team including attending physician. Note reviewed, I agree with most of its contents and agree with the patient's care as documented by Dr. Nielsen Patient seen today at the bedside found awake, alert, orientedx3 but with waxing and waning mentation, suspect possibly some underlying dementia. No overnight events reported. Vital signs and labs reviewed. Currently on IV antibiotic therpay. Pending MRI of lumbar spine to rule out discitis osteomyelitis. Patient will have EGD tonight by GI services. Case discussed with my attending Dr. Wilman Angulo MD PGY-2 Documentation for date of: 10/23/25 Subjective Subjective Interval history: Ms. Krishnan is a 75 years old female with history of hyperlipidemia, depression, hypertension, heart murmur, overactive bladder, CKD II, and cervical fracture presented initially to the ED on 10/21/25 for epigastric pain. In the ED, she was noted to have melena. Abdomen/pelvis CT without contrast showed retrocardiac gastric hernia, 5 mm splenic lesion, cortical erosions contiguous endplates L2- L3, suspicious for osteomyelitis discitis. Abdomen/pelvis with contrast showed 27 mm left lobe liver lesion with prominently fluid distended bowel in the upper right abdomen. SBFT revealed no small bowel obstruction. She was admitted for suspected GI bleed and suspicious osteomyelitis. 10/22/25: NAOE. Upon interviewing patient at bedside, patient seemed to have trouble with short term memory retention as she would forget the conversations we had. Patient is a/o x 2 (name, time, but not place), GCS 15. Will continue broad spectrum antibiotic for now for osteomyelitis while awaiting for MRI result. CT head ordered to r/o intracranial pathology. NPO for now pending GI recs. 10/23/25: NAOE. Hgb 10.9 today. Reported 6 episodes of loose stool that appeared black looking per RN. Per GI, plan for endoscopy today at 4pm. MRI lumbar does not confirm osteomyelitis that was previous noted on CT abdomen. Antibiotics de- escalated to Rocephin for UTI coverage. Patient continued to appear confused which is her baseline since admission. Head CT negative for acute hemorrhage, mass effect or midline shift. Likely DC tmr pending endoscopy findings and GI recs. Exam Vital Signs Temp Pulse Resp BP Pulse Ox O2 Del Method 97.3 F 74 17 129/78 97 Room Air 10/23/25 07:55 10/23/25 08:36 10/23/25 07:55 10/23/25 08:36 10/23/25 07:55 10/23/25 07:55 Narrative Exam General: Alert, oriented, in no acute distress. HEENT: Normocephalic, atraumatic. Extraocular movements intact. No cervical lymphadenopathy. Neck: Supple, no JVD, no lymphadenopathy or thyroid enlargement. Cardiovascular: Regular rate and rhythm. Systolic murmur appreciated. Respiratory: Clear to auscultation bilaterally. No wheezes, rales, or rhonchi. Normal respiratory effort. Abdomen: Soft, nondistended. No masses or organomegaly. TTP at left epigastric region Musculoskeletal: Full range of motion in all extremities. No joint swelling, tenderness, or deformities. Skin: Warm, dry, intact. No rashes or lesions. Psychiatric: Calm, cooperative, appropriate mood and affect. Objective Labs 10/23/25 04:50 10/23/25 04:50 Labs: Laboratory Results - last 24 hr 10/22/25 10/22/25 10/22/25 04:32 06:15 15:24 WBC RBC Hgb Hct MCV MCH MCHC RDW Std Deviation Plt Count Neut % (Auto) Lymph % (Auto) [place] % (Auto) Eos % (Auto) Baso % (Auto) Neut # (Auto) Lymph # (Auto) [place] # (Auto) Eos # (Auto) Baso # (Auto) Immature Gran # (Auto) Absolute Nucleated RBC Immature Gran % Nucleated RBC % Sodium Potassium Chloride Carbon Dioxide Anion Gap BUN Creatinine Estim Creat Clear Calc eGFR BUN/Creatinine Ratio Glucose Calculated Osmolality Calcium Corrected Calcium Phosphorus Magnesium Total Bilirubin AST ALT Alkaline Phosphatase Ammonia 11 Total Protein Albumin Globulin Albumin/Globulin Ratio Tumor Marker AFP < 1.30 Carcinoembryonic Ag 2.7 CA 125 Antigen 12.0 Stool Occult Blood Positive A Hepatitis A IgM Ab Hep Bs Antigen Hep B Core IgM Ab Hepatitis C Antibody 10/23/25 04:50 WBC 8.9 RBC 3.91 L Hgb 10.9 L Hct 33.4 L MCV 85 MCH 27.9 MCHC 32.6 RDW Std Deviation 44.3 Plt Count 252 D Neut % (Auto) 71 Lymph % (Auto) 20 [place] % (Auto) 7 Eos % (Auto) 1 Baso % (Auto) 0 Neut # (Auto) 6.3 Lymph # (Auto) 1.8 [place] # (Auto) 0.6 Eos # (Auto) 0.1 Baso # (Auto) 0.0 Immature Gran # (Auto) 0.04 H Absolute Nucleated RBC 0.00 Immature Gran % 1 H Nucleated RBC % 0 Sodium 143 Potassium 4.2 Chloride 110 H Carbon Dioxide 26.4 Anion Gap 7 BUN 13 Creatinine 0.8 Estim Creat Clear Calc 48.8 L eGFR > 60 BUN/Creatinine Ratio 16 Glucose 86 Calculated Osmolality 284 Calcium 8.6 Corrected Calcium 9.5 Phosphorus 2.5 Magnesium 1.9 Total Bilirubin 0.2 L AST 13 ALT < 7 L Alkaline Phosphatase 91 D Ammonia Total Protein 4.8 L Albumin 2.9 L D Globulin 1.9 L Albumin/Globulin Ratio 1.5 Tumor Marker AFP Carcinoembryonic Ag CA 125 Antigen Stool Occult Blood Hepatitis A IgM Ab Non Reactive Hep Bs Antigen Non Reactive Hep B Core IgM Ab Non Reactive Hepatitis C Antibody Non Reactive Quality Measures Quality Measures none Advance care planning discussed with:: patient Assessment & Plan Assessment Current Active Medications: Generic Name Dose Route Start Last Admin Trade Name Freq PRN Reason Stop Dose Admin Hydrocodone Bitart/Acetaminophen 1 tab 10/22/25 05:51 10/22/25 22:36 Hydrocodone/Apap 10/325 Tab PO 10/27/25 05:50 1 tab Q6H PRN Administration Pain 7-10 Citalopram Hydrobromide 10 mg 10/22/25 09:00 10/23/25 08:35 Citalopram 20 Mg Tablet PO 11/21/25 08:59 10 mg QDAY CRISTO Administration Doxepin HCl 100 mg 10/22/25 21:00 10/22/25 21:00 Doxepin Hcl 25 Mg Capsule PO 11/21/25 20:59 100 mg HS CRISTO Administration Duloxetine HCl 60 mg 10/22/25 09:00 10/23/25 08:35 Duloxetine Hcl 30 Mg Capsule PO 11/21/25 08:59 60 mg BID CRISTO Administration Cefepime HCl 2 gm/ Sodium 50 mls @ 100 mls/hr 10/22/25 09:00 10/23/25 08:35 Chloride IV 10/29/25 08:59 100 mls/hr Q12HR CRISTO Administration Vancomycin HCl 750 mg/ Sodium 250 mls @ 200 mls/hr 10/22/25 22:00 10/22/25 22:33 Chloride IV 10/29/25 21:59 200 mls/hr BID@1000,2200 CRISTO Administration Protocol Lisinopril 10 mg 10/22/25 09:00 10/23/25 08:36 Lisinopril 2.5 Mg Tablet PO 11/21/25 08:59 10 mg QDAY CRISTO Administration Metoprolol Succinate 25 mg 10/22/25 09:00 10/23/25 08:36 Metoprolol Succinate Xl 25 Mg Tabcr PO 11/21/25 08:59 25 mg BID CRISTO Administration Ondansetron HCl 4 mg 10/22/25 01:56 Ondansetron Inj 2 Mg/Ml Inj 2 Ml IVP 11/21/25 01:55 Q8HR PRN NAUSEA OR VOMITING Protocol Oxybutynin Chloride 10 mg 10/22/25 09:00 10/23/25 08:33 Oxybutynin Chlor Xl 5 Mg Priyanka PO 11/21/25 08:59 10 mg QDAY CRISTO Administration Oxybutynin Chloride 5 mg 10/23/25 09:15 10/23/25 09:27 Oxybutynin Chlor 5 Mg Tablet PO 11/22/25 09:14 Not Given BID CRISTO Protocol Pantoprazole Sodium 40 mg 10/22/25 21:00 10/23/25 08:36 Pantoprazole Inj 40 Mg Vial IVP 11/21/25 20:59 40 mg BID CRISTO Administration Pharmacy Consult 1 each 10/22/25 09:00 Vancomycin Pharmacy To Dose 1 Each Each IV 11/21/25 08:59 QDAY PRN PROTOCOL Plan Ms. Krishnan is a 75 years old female with history of hyperlipidemia, depression, hypertension, heart murmur, overactive bladder, CKD II, and cervical fracture presented epigastric pain. Poor historian. She was admitted for suspected GI bleed and suspicious osteomyelitis. # osteomyelitis discitis RULED OUT #Leukocytosis CTAP showed cortical bone erosion involving contiguous endplates L2-L3 suspicious for osteomyelitis discitis Patient had no pain to palpation over the lumbar spine Patient is afebrile and had mild leukocytosis of 13.6, may make osteomyelitis less likely - MRI lumbar spine with and without contrast 10/23 : No osteomyelitis at L2-L3 - Discontinue cefepine 2g Q12H and vancomycin (10/23) #Acute upper GI bleed #Gastric hernia #Melena #Status post epigastric incisional hernia repair (2020) #Status post gastric bypass procedure #Status post incarcerated ventral hernia repair #GERD Patient presented with a several day/week history of midepigastric pain that was waxing and waning CTAP without contrast showed retrocardiac gastric hernia Patient had an episode of melena in the ED Hemoglobin on arrival was 14.5, repeat 13.3 Patient is status post incarcerated epigastric incisional hernia [place] [address] Miller - Pantoprazole drip in ED - Pantoprazole 40 mg IV push twice daily - Avoiding NSAIDs, ASA, and chemical anticoagulation - NPO for now, pending GI recs - GI Dr. Chino consulted, appreciate recs --> EGD 10/23/25 - Daily CBC - Transfuse if Hgb < 7 #Asymptomatic bacteruria #History of recurrent urinary tract infections Initial UA: 1+ protein, 2+ ketones, 1+ blood, nitrite positive, 19 RBC, 23 WBC, 9 squamous epithelial cells, 4+ bacteria - repeat UA ordered, as first sample likely contaminated - Patient received ciprofloxacin 400 mg IV in the ED - Continue Rocephin 1g QD. - Though patient is allergic to another type of cephalosporin, patient tolerated cefepime - Urine cultures grew GNR. - Blood cultures NGTD #Incidental finding of liver lesion #Incidental finding fat-containing femoral hernia CTAP with contrast showed 27 mm left liver lobe lesion and Fat-containing femoral hernias but no bowel gas in these defects - No direct intervention at this time - Negative for AFP, CEA, CA125, pending CA199. - Outpatient management #Depression - chronic medical problem - Continue home duloxetine 60mg BID, citalopram 10mg QD, and Doxepin 100mg PO HS. - EKG 10/21/25 with QTc of 397. - Replete electrolyte with goal of Mg > 2. - CT head unremarkable #Hypertension stage II - chronic medical problem - continue home lisinopril 10mg QD, metoprolol succinate 25mg BID #Overactive bladder #Status post Mason procedure #Status post hysterectomy - chronic medical problem - continue home oxybutynin 10mg QD #Systolic ejection murmur #Palpable thrill Patient had a grade 5 out of 6 systolic ejection murmur across the entire chest area on auscultation She had a palpable thrill on physical exam Patient mentions that she sees a regulatory lead but has not in a while - Echo 10/22/25 : There is mild aortic valve sclerosis with severe stenosis and no regurgitation. Left ventricle size is normal and systolic function is normal. Estimated ejection fraction is 60-65%. There is grade I diastolic dysfunction. - Outpatient management #SBO - ruled out CTAP showed fluid distended small bowel loops with concern for SBO Patient denied nausea, vomiting, food intolerance, and reported recent bowel movement prior to admission Tenderness was isolated to the mid epigastric region on physical exam, no distention - NPO - Small bowel follow-through negative for SBO Health maintenance Dispo: Pending MRI for osteomyelitis confirmation, endoscopy to investigate upper GI bleed. DVT prophylaxis: SCDs GI prophylaxis: Protonix 40mg BID Antibiotics: Cefepime and vanco Bowel Regimen: N/A Diet: NPO pending endoscopy Lines: Peripheral IV Code status: Full code Case discussed with my senior resident Dr. Vigil Case discussed with my attending Dr. Wilman Nielsen DO PGY 1 Attending Provider Attestation/Addendum Jasmin Zaldivar DO, attest that I was physically present for the marcos portions of the service and evaluated the patient with the resident and I reviewed and discussed the case with the resident and agree with the resident's findings and plans of care as documented above Patient seen and evaluated this AM. Patient states she is feeling better today with improvement of her epigastric pain. Patient had a BM yesterday. Low suspicion for SBO. Scheduled for EGD this evening. Patient remains NPO at this time. MRI pending to rule out osteomyelitis of lumbar spine due to suspicion noted on CT.
[2025-10-23] MEDS: Vancomycin Inj 750 MG in SODIUM CHLORIDE 0.9% 250 ML 250 ML 200 MG IV (09:56)
--- NOTE | 2025-10-23 11:53 | PC.SS ---
Patient Bernardino Krishnan is a 75 Year old female admitted for SBO. SS met with patient at bedside to discuss discharge plan and verify demographic information. Patient reports she lives at home alone Patient reports she does not utilize any source of DME to assist with ambulation. Patient reports she is able to complete all ADL's independently. Choice of pharmacy is [facility] PCP is Rima Lang. Patient reports her sisterTone is her surrogate decision maker, . At time of discharge the patient reports she would like to discharge back home. Family will provide transportation. Discharge plan: Home Next of kin: SisterTone PCP: Rima
--- NOTE | 2025-10-23 13:52 | PC.SS ---
SS follow up note; Patient is pending Endoscopy and MRI. Patient will return home when medically cleared.
[2025-10-23] MEDS: cefTRIAXone/D5w 1gm IV premix 1 GM/50 ML BAG IV (15:13)
--- NOTE | 2025-10-23 19:04 | PC.NURSE ---
Christine received, pt back from endo.
[2025-10-23] MEDS: SUCRALFATE SUSP 1 GM/10 ML UDC PO (20:45)
[2025-10-23] MEDS: DOXEPIN HCL 25 MG CAPSULE 100 MG PO (20:45)
[2025-10-23] MEDS: FERROUS SULF 325 MG TABLET PO (20:45)
[2025-10-23] MEDS: MG HYD/AL HYD/SIME (Maalox Reg) SUSP 30 ML UDC 15 ML PO (20:45)
[2025-10-23] MEDS: ASCORBIC ACID 250 MG TABLET 500 MG PO (20:45)
[2025-10-23 22:27] LABS: Vancomycin,Trough 14.0 mcg/mL (5.0-10.0)
[2025-10-24] VITALS (12 sets, daily range): BP systolic 109–123; BP diastolic 68–81; PULSE 61–77; RESP 16–95; TEMP 36.1–36.6; O2SAT 96–98; BMI 20.9; BMI 21.0
[2025-10-24] MEDS: SUCRALFATE SUSP 1 GM/10 ML UDC PO ×4 (05:44→20:35)
[2025-10-24] MEDS: MG HYD/AL HYD/SIME (Maalox Reg) SUSP 30 ML UDC 15 ML PO ×4 (05:44→20:35)
[2025-10-24 06:14] LABS: Basophils # (Auto) 0.0 Thou/mm3 (0.0-0.2); Basophils % (Auto) 0 % (0-2.5); Eosinophils # (Auto) 0.2 Thou/mm3 (0.0-0.5); Eosinophils % (Auto) 3 % (0-10); Hematocrit 32.2 % (36.0-46.0); Hemoglobin 10.3 g/dL (12.0-16.0); Immature Granulocytes Auto 0.02 Thou/mm3 (0.00-0.00); Lymphocytes # (Auto) 2.1 Thou/mm3 (1.0-4.8); Lymphocytes % (Auto) 27 % (10-50); Mean Corpuscular HGB Conc 32.0 g/dl (31.0-37.0); Mean Corpuscular Hemoglobin 28.1 pg (25.0-35.0); Mean Corpuscular Volume 88 fL (80-100); Monocytes # (Auto) 0.5 Thou/mm3 (0.0-0.8); Monocytes % (Auto) 6 % (0-12); Neutrophils # (Auto) 5.1 Thou/mm3 (1.8-7.7); Neutrophils % (Auto) 64 % (37-80); Nucleated Red Blood Cell # 0.00 Thou/mm3 (0.00-0.00); Nucleated Red Blood Cell % 0 /100 WBC (0); Platelet Count 222 Thou/mm3 (140-440); RDW Standard Deviation 46.1 fL (36.4-46.3); Red Blood Count 3.67 Miln/mm3 (4.00-5.20); White Blood Count 8.0 Thou/mm3 (3.6-11.0)
[2025-10-24 08:07] LABS: Albumin, Serum 2.8 gm/dL (3.4-4.8); Albumin/Globulin Ratio 1.5 (1.2-2.2); Alkaline Phosphatase 86 U/L (46-116); Anion Gap 8 (7-16); Aspartate Amino Transferase 14 U/L (0-34); BUN/Creatinine Ratio 13 Ratio (12-20); Bilirubin,Total < 0.2 mg/dL (0.3-1.2); Blood Urea Nitrogen 12 mg/dL (9-23); Calcium 8.2 mg/dL (8.3-10.6); Calcium (Corrected) 9.2 mg/dL (8.5-10.1); Carbon Dioxide 23.0 mMol/L (20.0-31.0); Chloride 110 mMol/L (98-107); Creatinine (Component) 0.9 mg/dL (0.6-1.3); Estimated Creatinine Clearance 43.4 mL/min (>60); Globulin 1.9 gm/dL (2.3-3.5); Glucose 73 mg/dL (74-106); Magnesium 2.0 mg/dL (1.6-2.6); Osmolality,Calculated 279 (275-295); Phosphorous 2.5 mg/dL (2.4-5.1); Potassium 4.0 mMol/L (3.4-5.1); Sodium 141 mMol/L (136-145); Total Protein 4.7 gm/dL (5.7-8.2); eGFR > 60 See Note
[2025-10-24 08:36] LABS: Alanine Aminotransferase < 7 U/L (10-49)
[2025-10-24] MEDS: cefTRIAXone/D5w 1gm IV premix 1 GM/50 ML BAG IV (08:53)
[2025-10-24] MEDS: METOPROLOL SUCCINATE XL 25 MG TABCR PO ×2 (08:54→20:34)
[2025-10-24] MEDS: FERROUS SULF 325 MG TABLET PO ×2 (08:54→20:35)
[2025-10-24] MEDS: ASCORBIC ACID 250 MG TABLET 500 MG PO ×2 (08:54→20:35)
[2025-10-24] MEDS: DULoxetine HCL 30 MG CAPSULE 60 MG PO ×2 (08:54→20:34)
[2025-10-24] MEDS: CITALOPRAM 20 MG TABLET 10 MG PO (08:55)
[2025-10-24] MEDS: OXYBUTYNIN CHLOR XL 5 MG TABER 10 MG PO (09:03)
--- NOTE | 2025-10-24 13:32 | PD.RESPRO ---
Documentation for date of: 10/24/25 Subjective Subjective Interval history: Ms. Krishnan is a 75 years old female with history of hyperlipidemia, depression, hypertension, heart murmur, overactive bladder, CKD II, and cervical fracture presented initially to the ED on 10/21/25 for epigastric pain. In the ED, she was noted to have melena. Abdomen/pelvis CT without contrast showed retrocardiac gastric hernia, 5 mm splenic lesion, cortical erosions contiguous endplates L2-L3, suspicious for osteomyelitis discitis. Abdomen/pelvis with contrast showed 27 mm left lobe liver lesion with prominently fluid distended bowel in the upper right abdomen. SBFT revealed no small bowel obstruction. She was admitted for suspected GI bleed and suspicious osteomyelitis. 10/22/25: NAOE. Upon interviewing patient at bedside, patient seemed to have trouble with short term memory retention as she would forget the conversations we had. Patient is a/o x 2 (name, time, but not place), GCS 15. Will continue broad spectrum antibiotic for now for osteomyelitis while awaiting for MRI result. CT head ordered to r/o intracranial pathology. NPO for now pending GI recs. 10/23/25: NAOE. Hgb 10.9 today. Reported 6 episodes of loose stool that appeared black looking per RN. Per GI, plan for endoscopy today at 4pm. MRI lumbar does not confirm osteomyelitis that was previous noted on CT abdomen. Antibiotics de-escalated to Rocephin for UTI coverage. Patient continued to appear confused which is her baseline since admission. Head CT negative for acute hemorrhage, mass effect or midline shift. Likely DC tmr pending endoscopy findings and GI recs. 10/24/25: NAOE. Hgb 10.3 today. EGD performed yesterday showed esophagitis in the lower third of the esophagus and a large ulcer at the gastrojejunal anastomosis from Maris-en-Y. GI recommends continued inpatient monitoring for one additional day given the high risk of perforation due to the size of the ulcer. Will continue Carafate, Maalox, Protonix, and a peptic ulcer disease diet. Continue Rocephin for UTI. Exam Vital Signs Temp Pulse Resp BP Pulse Ox O2 Del Method O2 Flow Rate 97.6 F 61 19 109/69 97 Room Air 3 10/24/25 11:59 10/24/25 11:59 10/24/25 11:59 10/24/25 11:59 10/24/25 11:59 10/24/25 11:59 10/23/25 18:20 Narrative Exam General: Alert, oriented, in no acute distress. HEENT: Normocephalic, atraumatic. Extraocular movements intact. No cervical lymphadenopathy. Neck: Supple, no JVD, no lymphadenopathy or thyroid enlargement. Cardiovascular: Regular rate and rhythm. Systolic murmur appreciated. Respiratory: Clear to auscultation bilaterally. No wheezes, rales, or rhonchi. Normal respiratory effort. Abdomen: Soft, nondistended. No masses or organomegaly. TTP at left epigastric region Musculoskeletal: Full range of motion in all extremities. No joint swelling, tenderness, or deformities. Skin: Warm, dry, intact. No rashes or lesions. Psychiatric: Calm, cooperative, appropriate mood and affect Objective Labs 10/24/25 04:45 10/24/25 04:45 Labs: Laboratory Results - last 24 hr 10/23/25 10/24/25 20:30 04:45 WBC 8.0 RBC 3.67 L Hgb 10.3 L Hct 32.2 L MCV 88 MCH 28.1 MCHC 32.0 RDW Std Deviation 46.1 Plt Count 222 D Neut % (Auto) 64 Lymph % (Auto) 27 [place] % (Auto) 6 Eos % (Auto) 3 Baso % (Auto) 0 Neut # (Auto) 5.1 Lymph # (Auto) 2.1 [place] # (Auto) 0.5 Eos # (Auto) 0.2 Baso # (Auto) 0.0 Immature Gran # (Auto) 0.02 H Absolute Nucleated RBC 0.00 Immature Gran % 0 Nucleated RBC % 0 Sodium 141 Potassium 4.0 Chloride 110 H Carbon Dioxide 23.0 Anion Gap 8 BUN 12 Creatinine 0.9 Estim Creat Clear Calc 43.4 L eGFR > 60 BUN/Creatinine Ratio 13 Glucose 73 L Calculated Osmolality 279 Calcium 8.2 L Corrected Calcium 9.2 Phosphorus 2.5 Magnesium 2.0 Total Bilirubin < 0.2 L AST 14 ALT < 7 L Alkaline Phosphatase 86 Total Protein 4.7 L Albumin 2.8 L Globulin 1.9 L Albumin/Globulin Ratio 1.5 Vancomycin Trough 14.0 H Quality Measures Quality Measures none Advance care planning discussed with:: patient Assessment & Plan Assessment Current Active Medications: Generic Name Dose Route Start Last Admin Trade Name Freq PRN Reason Stop Dose Admin Hydrocodone Bitart/Acetaminophen 1 tab 10/22/25 05:51 10/24/25 05:44 Hydrocodone/Apap 10/325 Tab PO 10/27/25 05:50 1 tab Q6H PRN Administration Pain 7-10 Al Hydrox/Mg Hydrox/Simethicone 15 ml 10/23/25 21:00 10/24/25 13:29 Mg Hyd/Al Hyd/Bety (Maalox Reg) Susp 30 Ml Udc PO 11/22/25 20:59 15 ml QID CRISTO Administration Ascorbic Acid 500 mg 10/23/25 21:00 10/24/25 08:54 Ascorbic Acid 250 Mg Tablet PO 11/22/25 20:59 500 mg BID CRISTO Administration Citalopram Hydrobromide 10 mg 10/22/25 09:00 10/24/25 08:55 Citalopram 20 Mg Tablet PO 11/21/25 08:59 10 mg QDAY CRISTO Administration Doxepin HCl 100 mg 10/22/25 21:00 10/23/25 20:45 Doxepin Hcl 25 Mg Capsule PO 11/21/25 20:59 100 mg HS CRISTO Administration Duloxetine HCl 60 mg 10/22/25 09:00 10/24/25 08:54 Duloxetine Hcl 30 Mg Capsule PO 11/21/25 08:59 60 mg BID CRISTO Administration Ferrous Sulfate 325 mg 10/23/25 21:00 10/24/25 08:54 Ferrous Sulf 325 Mg Tablet PO 11/22/25 20:59 325 mg BID CRISTO Administration Ceftriaxone Sodium/Dextrose 1 gm in 50 mls @ 100 mls/hr 10/23/25 14:59 10/24/25 08:53 Rocephin/D5w 1gm Iv Premix IV 10/30/25 14:58 100 mls/hr QDAY CRISTO Administration Lisinopril 10 mg 10/22/25 09:00 10/24/25 08:55 Lisinopril 2.5 Mg Tablet PO 11/21/25 08:59 10 mg QDAY CRISTO Administration Metoprolol Succinate 25 mg 10/22/25 09:00 10/24/25 08:54 Metoprolol Succinate Xl 25 Mg Tabcr PO 11/21/25 08:59 25 mg BID CRISTO Administration Ondansetron HCl 4 mg 10/22/25 01:56 Ondansetron Inj 2 Mg/Ml Inj 2 Ml IVP 11/21/25 01:55 Q8HR PRN NAUSEA OR VOMITING Protocol Oxybutynin Chloride 10 mg 10/22/25 09:00 10/24/25 09:03 Oxybutynin Chlor Xl 5 Mg Priyanka PO 11/21/25 08:59 10 mg QDAY CRISTO Administration Pantoprazole Sodium 40 mg 10/22/25 21:00 10/24/25 08:56 Pantoprazole Inj 40 Mg Vial IVP 11/21/25 20:59 40 mg BID CRISTO Administration Sucralfate 1 gm 10/23/25 21:00 10/24/25 13:29 Sucralfate Susp 1 Gm/10 Ml Udc PO 11/22/25 20:59 1 gm QID CRISTO Administration Plan Ms. Krishnan is a 75 years old female with history of hyperlipidemia, depression, hypertension, heart murmur, overactive bladder, CKD II, and cervical fracture presented epigastric pain. Poor historian. She was admitted for suspected GI bleed and suspicious osteomyelitis. #Osteomyelitis discitis RULED OUT #Leukocytosis CTAP showed cortical bone erosion involving contiguous endplates L2-L3 suspicious for osteomyelitis discitis Patient had no pain to palpation over the lumbar spine Patient is afebrile and had mild leukocytosis of 13.6, may make osteomyelitis less likely - MRI lumbar spine with and without contrast 10/23 : No osteomyelitis at L2-L3 - Discontinue cefepine 2g Q12H and vancomycin (10/23) #Acute upper GI bleed #Gastrojejunal anastomotic ulceration #Gastric hernia #Melena #Status post epigastric incisional hernia repair (2020) #Status post gastric bypass procedure #Status post incarcerated ventral hernia repair #GERD Patient presented with a several day/week history of midepigastric pain that was waxing and waning CTAP without contrast showed retrocardiac gastric hernia Patient had an episode of melena in the ED Hemoglobin on arrival was 14.5, repeat 13.3 Patient is status post incarcerated epigastric incisional hernia [place] [address] Miller EKG 10/23: Esophagitis, Maris-en-Y gastrojejunostomy with gastrojejunal anastomosis characterized by large ulceration. - Pantoprazole drip in ED - Pantoprazole 40 mg IV push twice daily - Avoiding NSAIDs, ASA, and chemical anticoagulation - NPO for now, pending GI recs - GI Dr. Chino consulted, appreciate recs. - Daily CBC - Transfuse if Hgb < 7 - Carafate 1g QID - Maalox 15 mL PO Q4HR - Ferrous sulfate 325 mg PO twice daily to be taken together with vitamin C 500 mg twice daily along with a glass of orange juice - Start peptic ulcer disease diet #Asymptomatic bacteruria #History of recurrent urinary tract infections Initial UA: 1+ protein, 2+ ketones, 1+ blood, nitrite positive, 19 RBC, 23 WBC, 9 squamous epithelial cells, 4+ bacteria - repeat UA ordered, as first sample likely contaminated - Patient received ciprofloxacin 400 mg IV in the ED - Continue Rocephin 1g QD. - Though patient is allergic to another type of cephalosporin, patient tolerated cefepime - Urine cultures grew GNR. - Blood cultures NGTD #Incidental finding of liver lesion #Incidental finding fat-containing femoral hernia CTAP with contrast showed 27 mm left liver lobe lesion and Fat-containing femoral hernias but no bowel gas in these defects - No direct intervention at this time - Negative for AFP, CEA, CA125, pending CA199. - Outpatient management #Depression - chronic medical problem - Continue home duloxetine 60mg BID, citalopram 10mg QD, and Doxepin 100mg PO HS. - EKG 10/21/25 with QTc of 397. - Replete electrolyte with goal of Mg > 2. - CT head unremarkable #Hypertension stage II - chronic medical problem - continue home lisinopril 10mg QD, metoprolol succinate 25mg BID #Overactive bladder #Status post Mason procedure #Status post hysterectomy - chronic medical problem - continue home oxybutynin 10mg QD #Systolic ejection murmur #Palpable thrill Patient had a grade 5 out of 6 systolic ejection murmur across the entire chest area on auscultation She had a palpable thrill on physical exam Patient mentions that she sees a funeral service practitioner/embalmer but has not in a while - Echo 10/22/25 : There is mild aortic valve sclerosis with severe stenosis and no regurgitation. Left ventricle size is normal and systolic function is normal. Estimated ejection fraction is 60-65%. There is grade I diastolic dysfunction. - Outpatient management #SBO - ruled out CTAP showed fluid distended small bowel loops with concern for SBO Patient denied nausea, vomiting, food intolerance, and reported recent bowel movement prior to admission Tenderness was isolated to the mid epigastric region on physical exam, no distention - NPO - Small bowel follow-through negative for SBO Health maintenance Dispo: Osteomyelitis ruled out, EGD showed large ulceration, anticipate discharge tomorrow DVT prophylaxis: SCDs GI prophylaxis: Protonix 40mg BID Antibiotics: Cefepime and vanco Bowel Regimen: N/A Diet: PUD Lines: Peripheral IV Code status: Full code --- Patient plan of care was discussed with attending physician, Dr. Stovall. Fred Patricio DO PGY-1 Attending Provider Attestation/Addendum Jasmin Zaldivar DO, attest that I was physically present for the marcos portions of the service and evaluated the patient with the resident and I reviewed and discussed the case with the resident and agree with the resident's findings and plans of care as documented above Patient seen and evaluated this AM. She states that she is feeling improved. She continues to mild epigastric discomfort, but tolerated diet. Patient was noted to have circumferential ulceration of anastamotic site of her RYGB. Will monitor H/H closely and continue with current management. Continue with rocephin for coverage of UTI. Continue with maalox and carafate.
--- NOTE | 2025-10-24 20:28 | PD.IMPROG ---
Documentation for date of: 10/24/25 Subjective Subjective Interval history: Patient evaluated Hemoglobin hematocrit 10.3 and 32.2 Significant circumferential ulceration at the anastomotic site of the bariatric procedure Exam Vital Signs Temp Pulse Resp BP Pulse Ox O2 Del Method O2 Flow Rate 97.8 F 66 18 118/69 98 Room Air 3 10/24/25 20:00 10/24/25 20:00 10/24/25 20:00 10/24/25 20:00 10/24/25 20:00 10/24/25 20:00 10/23/25 18:20 Objective Labs 10/24/25 04:45 10/24/25 04:45 Labs: Laboratory Results - last 24 hr 10/23/25 10/24/25 20:30 04:45 WBC 8.0 RBC 3.67 L Hgb 10.3 L Hct 32.2 L MCV 88 MCH 28.1 MCHC 32.0 RDW Std Deviation 46.1 Plt Count 222 D Neut % (Auto) 64 Lymph % (Auto) 27 [place] % (Auto) 6 Eos % (Auto) 3 Baso % (Auto) 0 Neut # (Auto) 5.1 Lymph # (Auto) 2.1 [place] # (Auto) 0.5 Eos # (Auto) 0.2 Baso # (Auto) 0.0 Immature Gran # (Auto) 0.02 H Absolute Nucleated RBC 0.00 Immature Gran % 0 Nucleated RBC % 0 Sodium 141 Potassium 4.0 Chloride 110 H Carbon Dioxide 23.0 Anion Gap 8 BUN 12 Creatinine 0.9 Estim Creat Clear Calc 43.4 L eGFR > 60 BUN/Creatinine Ratio 13 Glucose 73 L Calculated Osmolality 279 Calcium 8.2 L Corrected Calcium 9.2 Phosphorus 2.5 Magnesium 2.0 Total Bilirubin < 0.2 L AST 14 ALT < 7 L Alkaline Phosphatase 86 Total Protein 4.7 L Albumin 2.8 L Globulin 1.9 L Albumin/Globulin Ratio 1.5 Vancomycin Trough 14.0 H Impressions Impression: Significant ulceration at the anastomotic site of bariatric surgical procedure Continue current management Assessment & Plan A&P Narrative # Melena etiology uncertain Plan Consent obtained for fiberoptic esophagogastroduodenoscopy biopsy therapeutic intervention under intravenous moderate sedation scheduled for tomorrow Clear liquid diet till 12 midnight then n.p.o. # Dilated loops of small bowel but no evidence of small bowel obstruction on small bowel follow-through probably resolving ileus # Recurrent UTI Multiple medical issues as follows Status post gastric bypass procedure Status post incarcerated ventral hernia repair Depression Hyperlipidemia Chronic low back pain Status post Mason procedure hysterectomy T&A and ankle surgery C7 fracture Thank you very much for the opportunity to participate in the care of this patient Time Spent With Patient Time: Total time spent is greater than 50% in coordination of care (as documented) at patient's floor/unit and/or counseling patient:
[2025-10-24] MEDS: DOXEPIN HCL 25 MG CAPSULE 100 MG PO (20:34)
[2025-10-25] VITALS (7 sets, daily range): BP systolic 128–147; BP diastolic 65–84; PULSE 55–86; RESP 16–19; TEMP 36.4–36.6; O2SAT 93–97; BMI 20.7
[2025-10-25] MEDS: SUCRALFATE SUSP 1 GM/10 ML UDC PO ×2 (05:06→12:19)
[2025-10-25] MEDS: MG HYD/AL HYD/SIME (Maalox Reg) SUSP 30 ML UDC 15 ML PO ×2 (05:06→12:18)
[2025-10-25 06:16] LABS: Basophils # (Auto) 0.0 Thou/mm3 (0.0-0.2); Basophils % (Auto) 0 % (0-2.5); Eosinophils # (Auto) 0.3 Thou/mm3 (0.0-0.5); Eosinophils % (Auto) 4 % (0-10); Hematocrit 35.3 % (36.0-46.0); Hemoglobin 11.1 g/dL (12.0-16.0); Immature Granulocytes Auto 0.03 Thou/mm3 (0.00-0.00); Lymphocytes # (Auto) 2.1 Thou/mm3 (1.0-4.8); Lymphocytes % (Auto) 29 % (10-50); Mean Corpuscular HGB Conc 31.4 g/dl (31.0-37.0); Mean Corpuscular Hemoglobin 27.3 pg (25.0-35.0); Mean Corpuscular Volume 87 fL (80-100); Monocytes # (Auto) 0.4 Thou/mm3 (0.0-0.8); Monocytes % (Auto) 6 % (0-12); Neutrophils # (Auto) 4.3 Thou/mm3 (1.8-7.7); Neutrophils % (Auto) 60 % (37-80); Nucleated Red Blood Cell # 0.00 Thou/mm3 (0.00-0.00); Nucleated Red Blood Cell % 0 /100 WBC (0); Platelet Count 280 Thou/mm3 (140-440); RDW Standard Deviation 45.9 fL (36.4-46.3); Red Blood Count 4.06 Miln/mm3 (4.00-5.20); White Blood Count 7.2 Thou/mm3 (3.6-11.0)
[2025-10-25 07:18] LABS: Alanine Aminotransferase < 7 U/L (10-49); Albumin, Serum 3.1 gm/dL (3.4-4.8); Albumin/Globulin Ratio 1.3 (1.2-2.2); Alkaline Phosphatase 99 U/L (46-116); Anion Gap 7 (7-16); Aspartate Amino Transferase < 8 U/L (0-34); BUN/Creatinine Ratio 16 Ratio (12-20); Bilirubin,Total < 0.2 mg/dL (0.3-1.2); Blood Urea Nitrogen 14 mg/dL (9-23); Calcium 9.4 mg/dL (8.3-10.6); Calcium (Corrected) 10.1 mg/dL (8.5-10.1); Carbon Dioxide 29.9 mMol/L (20.0-31.0); Chloride 106 mMol/L (98-107); Creatinine (Component) 0.9 mg/dL (0.6-1.3); Estimated Creatinine Clearance 41.4 mL/min (>60); Globulin 2.3 gm/dL (2.3-3.5); Glucose 92 mg/dL (74-106); Magnesium 2.2 mg/dL (1.6-2.6); Osmolality,Calculated 285 (275-295); Phosphorous 2.6 mg/dL (2.4-5.1); Potassium 3.9 mMol/L (3.4-5.1); Sodium 143 mMol/L (136-145); Total Protein 5.4 gm/dL (5.7-8.2); eGFR > 60 See Note
[2025-10-25] MEDS: OXYBUTYNIN CHLOR XL 5 MG TABER 10 MG PO (08:38)
[2025-10-25] MEDS: DULoxetine HCL 30 MG CAPSULE 60 MG PO (08:38)
[2025-10-25] MEDS: METOPROLOL SUCCINATE XL 25 MG TABCR PO (08:39)
[2025-10-25] MEDS: ASCORBIC ACID 250 MG TABLET 500 MG PO (08:39)
[2025-10-25] MEDS: FERROUS SULF 325 MG TABLET PO (08:39)
[2025-10-25] MEDS: cefTRIAXone/D5w 1gm IV premix 1 GM/50 ML BAG IV (08:40)
[2025-10-25] MEDS: CITALOPRAM 20 MG TABLET 10 MG PO (08:44)
--- NOTE | 2025-10-25 10:04 | ESDS_ITS ---
<Statement entered by Carmelina Alberts MD - 10/30/25 08:33> I reviewed above note and agree with findings and plans. I have also personally examined the patient with medicine team and went over assessment and plan with medical team including compensation intern and resident physician. <Statement entered by Zane Kimbrough MD - 10/25/25 18:59> In summary: 75-year-old female with a history of hyperlipidemia, depression, hypertension, heart murmur, overactive bladder, CKD II, gastric bypass, and a cervical fracture. She presented to the ED on 10/21/25 with epigastric pain, and was noted to have melena. CT imaging showed a retrocardiac gastric hernia, a 5 mm splenic lesion, cortical erosions at L2-L3 suspicious for osteomyelitis or discitis which was r/o with negative MRI, and a 27 mm left liver lesion with fluid-distended bowel suggesting a possible small bowel obstruction. However, a small bowel series ruled out obstruction. She was admitted on 10/22/25 for suspected GI bleed and possible osteomyelitis. GI prophylaxis and antibiotics for osteomyelitis were started. On day 2, an MRI of the lumbar spine showed no evidence of osteomyelitis, so antibiotics were de- escalated to Rocephin for a recurrent UTI. GI consultation led to an endoscopy, which revealed significant ulceration at the site of her previous bariatric surgery anastomosis. Given her hemodynamic stability and stable hemoglobin levels, she was deemed appropriate for discharge with outpatient follow-up for a colonoscopy. At discharge, she was medically and physically stable, with the plan of care discussed, return precautions provided, and all questions addressed. I?ve reviewed the note and agree with this assessment and plan, with the exceptions outlined above. I personally went over the labs, imaging, home medications, and prior records, and examined the patient. The case was also reviewed with the attending physician. Please note: this document was transc ribed using voice recognition technology; minor inaccuracies may be present. Zane Kimbrough DO PGY II Planned Discharge Date 10/25/25 DS: Providers Provider Date of admission: 10/22/25 00:30 Primary care physician: Physician No Primary/Family Admitting Provider: William Rouse DO Attending Provider on Admission: Mansoor Angulo MD Consults: 10/22/25 00:30 Consult to Gastroenterology Stat Comment: melena Consulting Provider: Arti Chino 10/22/25 05:28 Referral Physical Therapy Routine Comment: Physician Instructions: Attending Provider on DC: Carmelina Alberts MD Discharging Provider: Bentley Nielsen DO Anticipated date of discharge: 10/25/25 DS: Diagnosis Problem List Completed Was Problem List Reviewed/Reconciled?: Yes Hospital Course Hospital Course Hospital course: Ms. Krishnan is a 75 years old female with history of hyperlipidemia, depression, hypertension, heart murmur, overactive bladder, CKD II, gastric bypass and cervical fracture presented initially to the ED on 10/21/25 for epigastric pain. In the ED, she was noted to have melena. Abdomen/pelvis CT without contrast showed retrocardiac gastric hernia, 5 mm splenic lesion, cortical erosions contiguous endplates L2-L3, suspicious for osteomyelitis discitis. Abdomen/pelvis with contrast showed 27 mm left lobe liver lesion with prominently fluid distended bowel in the upper right abdomen concerning for small bowel obstruction. Given patient showed no sign of obstruction and denied nausea and vomiting, small bowel series was ordered in the ED, and result was negative. She was admitted on 10/22/25 for suspected GI bleed and suspicious osteomyelitis. Patient was prompted started on GI prophylaxis per GI bleed protocol and antibiotics for osteomyelitis. On day 2 of admission, MRI lumber spine revealed no evidence of osteomyelitis, therefore, antibiotics were de- escalated to rocephin for treatment of her recurrent UTI. GI was consulted for endoscopy, which revealed significant circumferential ulceration at the anastomotic site of the bariatric procedure. Given that patient is hemodynamically stable with stable hemoglobin during this admission, patient was deemed appropriate for discharge with close follow up outpatient for colonoscopy. At this time, patient is medically and physically stable for discharge for home. All questions and concerns addressed, plan of care discussed with patient, return precautions given. Diagnosis: #Osteomyelitis discitis RULED OUT #Leukocytosis #Acute upper GI bleed #Gastrojejunal anastomotic ulceration #Gastric hernia #Melena #Status post epigastric incisional hernia repair (2020) #Status post gastric bypass procedure #Status post incarcerated ventral hernia repair #GERD #Asymptomatic bacteruria #History of recurrent urinary tract infections #Incidental finding of liver lesion #Incidental finding fat-containing femoral hernia #Depression #Hypertension stage II #Overactive bladder #Status post Mason procedure #Status post hysterectomy #Systolic ejection murmur #Palpable thrill #Aortic stenosis #SBO - ruled out Discharge Plan: Follow-up with PCP within 1-2 weeks of discharge. * Recommended outpatient colonoscopy, please discuss with your PCP or GI. * Follow-up with Gastrointesinology (Dr. Chino) in 1-2 weeks of discharge regarding biopsy results. * To avoid peptic ulcers and esophageal irritation, avoid spicy, acidic, or fatty foods, as well as alcohol and caffeine, and eat smaller, more frequent meals while staying upright for at least 30 minutes after eating. * Take Sucralfate 1 gram daily to maintain soft and regular bowel movement. * Take Maalox 5mL twice daily to maintain soft and regular bowel movement, may increase up to 4 times daily as needed. * Continue taking Ferrous Sulfate 325 mg along with Vitamin C 500 mg daily. * Continue taking medications as prescribed below. * Return to Emergency Room if symptoms persist, worsen, or new symptoms develop. Case discussed with my senior resident Dr. Kimbrough Case discussed with my attending Dr. Aristeo Nielsen, PGY 1 Status at Discharge Overall status at discharge: patient is back to baseline Time Spent with Patient Time attestation: Total time spent providing and/or coordinating discharge services: Time spent: Greater than 30 minutes Exam Vital Signs Temp Pulse Resp BP Pulse Ox O2 Del Method O2 Flow Rate 97.7 F 81 19 128/65 97 Room Air 3 10/25/25 08:00 10/25/25 08:39 10/25/25 08:00 10/25/25 08:39 10/25/25 08:00 10/25/25 08:00 10/23/25 18:20 Narrative Exam General: Alert, but disoriented, in no acute distress. GCS15. HEENT: Normocephalic, atraumatic. Neck: Supple, no JVD, no lymphadenopathy or thyroid enlargement. Cardiovascular: Regular rate and rhythm. Loud systolic murmur radiating to bilateral carotids. Respiratory: Clear to auscultation bilaterally. No wheezes, rales, or rhonchi. Normal respiratory effort. Abdomen: Soft, nondistended, but TTP at epigastric and LUQ. No masses or organomegaly. Musculoskeletal: Full range of motion in all extremities. No joint swelling, tenderness, or deformities. Skin: Warm, dry, intact. No rashes or lesions. Neurological: A/O x 2. (name, time, not place) Sensation intact. Normal strength and coordination. Psychiatric: Calm, cooperative. Discharge Plan Plan Patient Disposition: HOME (Self Care) Patient condition on transfer: Stable Care Plan Goals: * Follow-up with PCP within 1-2 weeks of discharge. * Recommended outpatient colonoscopy, please discuss with your PCP or GI. * Follow-up with Gastrointesinology (Dr. Chino) in 1-2 weeks of discharge regarding biopsy results. * To avoid peptic ulcers and esophageal irritation, avoid spicy, acidic, or fatty foods, as well as alcohol and caffeine, and eat smaller, more frequent meals while staying upright for at least 30 minutes after eating. * Take Sucralfate 1 gram daily to maintain soft and regular bowel movement. * Take Maalox 5mL twice daily to maintain soft and regular bowel movement, may increase up to 4 times daily as needed. * Continue taking Ferrous Sulfate 325 mg along with Vitamin C 500 mg daily. * Continue taking medications as prescribed below. * Return to Emergency Room if symptoms persist, worsen, or new symptoms develop. Prescriptions/Referrals Prescriptions/Med Rec: New ascorbate calcium (vitamin C) 500 mg tablet 500 mg PO QDAY Qty: 30 0RF alum-mag hydroxide-simeth [Maalox Advanced] 200-200-20 mg/5 mL suspension 5 ml PO BID 14 Days Qty: 140 0RF sucralfate [Carafate] 1 gram tablet 1 g PO BID 14 Days Qty: 28 0RF ferrous sulfate 325 mg (65 mg iron) Tablet,Delayed Release (Dr/Ec) 325 mg PO BID 30 Days Qty: 60 0RF Continued metoprolol succinate 25 mg tablet extended release 24 hr 25 mg PO BID aripiprazole [Abilify] 5 mg tablet 5 mg PO QDAY Myrbetriq 25 mg tablet extended release 24 hr 25 mg PO QDAY oxybutynin chloride 10 mg tablet extended release 24hr 10 mg PO QDAY lisinopril 10 MG tablet 10 mg PO QDAY Qty: 0 azelastine 137 mcg (0.1 %) Aerosol,[place] 1 spray INTRANASAL BID Qty: 0 sumatriptan succinate [Imitrex] 50 mg tablet 100 mg PO Q2HR PRN (Reason: BREAKTHROUGH PAIN (MILD)) Qty: 0 citalopram 10 mg Tablet 10 mg PO QDAY hydrocodone-acetaminophen 10-325 mg Tablet 1 tab PO Q6H PRN (Reason: Pain) doxepin 100 mg Capsule 100 mg PO HS pantoprazole 40 mg Tablet,Delayed Release (Dr/Ec) 40 mg PO DAILY atorvastatin [Lipitor] 10 mg Tablet 10 mg PO QDAY Discontinued duloxetine [Cymbalta] 60 MG capsule,delayed release(DR/EC) 60 mg PO BID Qty: 0 Referrals: Arti Chino MD [Physician, Gastroenterology] No Primary/Family,Physician [Primary Care Provider] Patient/Caregiver Discharge Instructions Education Materials: Bleeding Gastrointestinal, Upper GI Endoscopy, Discharge Instructions- Eating ... Print Language: Lao Stand Alone Forms: Latoya Award Info., Patient Portal Info Letter, Work/Release Restrictions Discharge Order Discharge Orders: Discharge (Routine); Ordered 10/25/25 Ordered By: Bentley Nielsen Quality Discharge Quality Measures none
--- NOTE | 2025-10-25 18:16 | ESPR_ITS ---
Documentation for date of: 10/25/25 Subjective Subjective Interval history: Late entry for the note Case discussed with internal medicine resident Okay to discharge home on Protonix Carafate and Maalox Exam Vital Signs Temp Pulse Resp BP Pulse Ox O2 Del Method O2 Flow Rate 97.9 F 69 18 133/80 H 95 Room Air 3 10/25/25 11:53 10/25/25 12:00 10/25/25 11:53 10/25/25 11:53 10/25/25 11:53 10/25/25 11:53 10/23/25 18:20 Objective Labs 10/25/25 05:20 10/25/25 05:20 Labs: Laboratory Results - last 24 hr 10/25/25 05:20 WBC 7.2 RBC 4.06 Hgb 11.1 L Hct 35.3 L MCV 87 MCH 27.3 MCHC 31.4 RDW Std Deviation 45.9 Plt Count 280 D Neut % (Auto) 60 Lymph % (Auto) 29 [place] % (Auto) 6 Eos % (Auto) 4 Baso % (Auto) 0 Neut # (Auto) 4.3 Lymph # (Auto) 2.1 [place] # (Auto) 0.4 Eos # (Auto) 0.3 Baso # (Auto) 0.0 Immature Gran # (Auto) 0.03 H Absolute Nucleated RBC 0.00 Immature Gran % 0 Nucleated RBC % 0 Sodium 143 Potassium 3.9 Chloride 106 Carbon Dioxide 29.9 Anion Gap 7 BUN 14 Creatinine 0.9 Estim Creat Clear Calc 41.4 L eGFR > 60 BUN/Creatinine Ratio 16 Glucose 92 Calculated Osmolality 285 Calcium 9.4 Corrected Calcium 10.1 Phosphorus 2.6 Magnesium 2.2 Total Bilirubin < 0.2 L AST < 8 ALT < 7 L Alkaline Phosphatase 99 Total Protein 5.4 L Albumin 3.1 L Globulin 2.3 Albumin/Globulin Ratio 1.3 Impressions Impression: Anastomotic site circumferential ulcer Relatively stable hemoglobin hematocrit Okay to discharge patient home Assessment & Plan A&P Narrative # Melena etiology uncertain Plan Consent obtained for fiberoptic esophagogastroduodenoscopy biopsy therapeutic intervention under intravenous moderate sedation scheduled for tomorrow Clear liquid diet till 12 midnight then n.p.o. # Dilated loops of small bowel but no evidence of small bowel obstruction on small bowel follow-through probably resolving ileus # Recurrent UTI Multiple medical issues as follows Status post gastric bypass procedure Status post incarcerated ventral hernia repair Depression Hyperlipidemia Chronic low back pain Status post Mason procedure hysterectomy T&A and ankle surgery C7 fracture Thank you very much for the opportunity to participate in the care of this patient Time Spent With Patient Time: Total time spent is greater than 50% in coordination of care (as documented) at patient's floor/unit and/or counseling patient:
[2025-10-27 06:58] LABS: CA 19-9 Antigen* 9 U/mL (<34)
== END 2025-10-25 13:22 | disposition home or self-care (01) ==
LOC: SERX 20:17 → S3NX 10-22 05:48 → SERHOLD 10-26 06:10 → S3NX 10-26 06:11
PROVIDERS: Nurse Practitioner Primary Care; Specialist; Admitting Provider Internal Medicine; Emergency Provider Emergency Medicine; Visit Provider Student in an Organized Health Care Education/Training Program
PROC: (CPT 43239; principal; 2025-10-23 16:30)
DX: K25.4 Chronic or unspecified gastric ulcer with hemorrhage (principal); N39.0 Urinary tract infection, site not specified; F32.A Depression, unspecified; G89.29 Other chronic pain; M54.50 Low back pain, unspecified; G62.9 Polyneuropathy, unspecified; K80.20 Calculus of gallbladder without cholecystitis without obstruction; D73.89 Other diseases of spleen; K76.9 Liver disease, unspecified; Z98.84 Bariatric surgery status; I12.9 Hypertensive chronic kidney disease with stage 1 through stage 4 chronic kidney disease, or unspecified chronic kidney disease; N18.2 Chronic kidney disease, stage 2 (mild); J44.9 Chronic obstructive pulmonary disease, unspecified; F17.210 Nicotine dependence, cigarettes, uncomplicated; Z88.0 Allergy status to penicillin; R01.1 Cardiac murmur, unspecified; K41.90 Unilateral femoral hernia, without obstruction or gangrene, not specified as recurrent; K29.60 Other gastritis without bleeding; K45.8 Other specified abdominal hernia without obstruction or gangrene; K21.00 Gastro-esophageal reflux disease with esophagitis, without bleeding; Z87.440 Personal history of urinary (tract) infections; I35.0 Nonrheumatic aortic (valve) stenosis; N32.81 Overactive bladder; E78.5 Hyperlipidemia, unspecified
CPT/HCPCS: 43239; 36415; 70450; 72158; 74176; 74177; 74250; 76705; 80053; 80061; 80074; 80202; 81001; 82105; 82140; 82270; 82378; 83036; 83605; 83690; 83735; 84100; 84443; 84484; 85014; 85018; 85025; 85652; 86140; 86301; 86304; 87040; 87077; 87086; 87186; 93005; 93225; 93306; 96365; 96366; 96375; 96376; 97161; 99284; A4649; A9577; G0378; J0692; J0696; J0744; J1200; J2250; J2470; J3010; J3373; J3374; J3490; J7050; J7120; Q9963; Q9967; A9270

== ENCOUNTER 2025-10-29 23:12 | Emergency (ER) | payer MEDICARE, MEDICAID, SELFPAY ==
[2025-10-29 23:13] VITALS: BMI 20.8
[2025-10-29 23:34] VITALS: BP 171/87; PULSE 81; RESP 20; TEMP 36.9; O2SAT 95
--- NOTE | 2025-10-29 23:37 | PD.EDRME ---
Rapid Medical Screening Exam RME Arrival date/time: 10/29/25 23:12 75F with history of HTN, CKD, cervical fx, and gastric/bariatric surgery presents to ED with worsening epigastric pain. Patient was recently discharged and was found to have significant ulceration at the site of her previous bariatric surgery anastomosis. Prescribed [place]'s are not providing much relief. Patient denies N/V. Chief Complaint: Abdominal Pain Time Seen by Provider: 10/29/25 23:32 Vital signs: Vital Signs Temperature 98.4 F 10/29/25 23:34 Pulse Rate 81 10/29/25 23:34 Respiratory Rate 20 10/29/25 23:34 Blood Pressure 171/87 H 10/29/25 23:34 Pulse Oximetry (%) 95 10/29/25 23:34 Oxygen Delivery Method Room Air 10/29/25 23:34 Exam: Epigastric tenderness. Clinical Impression: Gastritis vs GIB vs pancreatitis vs stomach perforation
[2025-10-29 23:53] VITALS: BP 189/89; PULSE 61; RESP 18; TEMP 36.8; O2SAT 97
[2025-10-30] MEDS: LIDOCAINE VISCOUS 2% 15 ML UDC PO (00:01)
[2025-10-30 00:14] LABS: Lactate (Lactic Acid) 1.1 mMol/L (0.4-2.0)
[2025-10-30 00:20] LABS: Basophils # (Auto) 0.0 Thou/mm3 (0.0-0.2); Basophils % (Auto) 0 % (0-2.5); Eosinophils # (Auto) 0.1 Thou/mm3 (0.0-0.5); Eosinophils % (Auto) 1 % (0-10); Hematocrit 37.4 % (36.0-46.0); Hemoglobin 11.8 g/dL (12.0-16.0); Immature Granulocytes Auto 0.05 Thou/mm3 (0.00-0.00); Lymphocytes # (Auto) 1.7 Thou/mm3 (1.0-4.8); Lymphocytes % (Auto) 15 % (10-50); Mean Corpuscular HGB Conc 31.6 g/dl (31.0-37.0); Mean Corpuscular Hemoglobin 27.2 pg (25.0-35.0); Mean Corpuscular Volume 86 fL (80-100); Monocytes # (Auto) 0.8 Thou/mm3 (0.0-0.8); Monocytes % (Auto) 7 % (0-12); Neutrophils # (Auto) 8.8 Thou/mm3 (1.8-7.7); Neutrophils % (Auto) 77 % (37-80); Nucleated Red Blood Cell # 0.00 Thou/mm3 (0.00-0.00); Nucleated Red Blood Cell % 0 /100 WBC (0); Platelet Count 297 Thou/mm3 (140-440); RDW Standard Deviation 46.0 fL (36.4-46.3); Red Blood Count 4.34 Miln/mm3 (4.00-5.20); White Blood Count 11.3 Thou/mm3 (3.6-11.0)
[2025-10-30 00:23] VITALS: BP 175/98; PULSE 69
[2025-10-30 00:59] LABS: Alanine Aminotransferase 7 U/L (10-49); Albumin, Serum 3.6 gm/dL (3.4-4.8); Albumin/Globulin Ratio 1.6 (1.2-2.2); Alkaline Phosphatase 113 U/L (46-116); Anion Gap 9 (7-16); Aspartate Amino Transferase 15 U/L (0-34); BUN/Creatinine Ratio 16 Ratio (12-20); Bilirubin,Total 0.3 mg/dL (0.3-1.2); Blood Urea Nitrogen 13 mg/dL (9-23); Calcium 9.0 mg/dL (8.3-10.6); Calcium (Corrected) 9.3 mg/dL (8.5-10.1); Carbon Dioxide 29.1 mMol/L (20.0-31.0); Chloride 107 mMol/L (98-107); Creatinine (Component) 0.8 mg/dL (0.6-1.3); Estimated Creatinine Clearance 48.8 mL/min (>60); Globulin 2.2 gm/dL (2.3-3.5); Glucose 123 mg/dL (74-106); Lipase 24 U/L (12-53); Osmolality,Calculated 289 (275-295); Potassium 4.0 mMol/L (3.4-5.1); Procalcitonin < 0.04 ng/ml (0.0-0.49); Sodium 145 mMol/L (136-145); Total Protein 5.8 gm/dL (5.7-8.2); eGFR > 60 See Note
--- NOTE | 2025-10-30 01:52 | PD.EDABDPN ---
ED Abdominal Pain RME/HPI General Chief Complaint: Abdominal Pain Stated complaint: ABD PAIN Time seen by provider: 10/29/25 23:32 Arrival date/time: 10/29/25 23:12 RME / HPI RME / HPI narrative: 10/29/25 23:12 [id number] with history of HTN, CKD, cervical fx, and gastric/bariatric surgery presents to ED with worsening epigastric pain. Patient was recently discharged and was found to have significant ulceration at the site of her previous bariatric surgery anastomosis. Prescribed [place]'s are not providing much relief. Patient denies N/V. DR. MOORE MAIN ED EVALUATION: Patient with Hx of Gastric Bypass in addition to incarcerated ventral hernia repair seen recently for upper endoscopy/biopsy via moderate sedation following ileus, in addition to recurrent UTI. Patient's end sig ulceration at bariatric surgery enastimosis. Patient subsequently discharged home on Protonix, carafet, and Maalox now presenting with recurrent epigastric abdominal pain. No fever or chills, theres been no hematemesis or reported melena. PMH: Incarcerated ventral hernia, Peripheral Neuropathy, Migraine, Angina, Heart Murmur, Hypercholesterolemia, Congestive Heart Failure, Hypertension, Sleep Apnea, Hemorrhoids and Gastroesophageal Reflux Disease, Arthritis, Rheumatoid Arthritis, Cataracts, Depression and Anxiety PSH: Incarcerated ventral hernia repair, Gastric bypass Allergies: Penicillins, Cephalexin, Morphine Social: Negative Exam: Epigastric tenderness. Impression: Gastritis vs GIB vs pancreatitis vs stomach perforation Related Data Home Medications ?Medication ?Instructions ?Recorded ?Confirmed azelastine 137 mcg (0.1 %) nasal 1 spray intranasal BID #0 spry 08/02/17 10/22/25 spray lisinopril 10 mg tablet 10 mg PO QDAY #0 tabs 08/02/17 10/22/25 atorvastatin 10 mg tablet (Lipitor) 10 mg PO QDAY 12/04/18 10/22/25 metoprolol succinate 25 mg 25 mg PO BID 02/21/21 10/22/25 tablet,extended release 24 hr citalopram 10 mg tablet 10 mg PO QDAY 06/28/21 10/22/25 doxepin 100 mg capsule 100 mg PO HS 06/28/21 10/22/25 hydrocodone 10 mg-acetaminophen 1 tab PO Q6H PRN Pain 06/28/21 10/22/25 325 mg tablet pantoprazole 40 mg tablet,delayed 40 mg PO DAILY 06/28/21 10/22/25 release aripiprazole 5 mg tablet (Abilify) 5 mg PO QDAY 10/12/23 10/22/25 sumatriptan succinate 50 mg tablet 100 mg PO Q2HR PRN BREAKTHROUGH 10/12/23 10/22/25 (Imitrex) PAIN (MILD) #0 tabs mirabegron 25 mg tablet,extended 25 mg PO QDAY 02/11/24 10/22/25 release 24 hr (Myrbetriq) oxybutynin chloride 10 mg 10 mg PO QDAY 02/11/24 10/22/25 tablet,extended release 24 hr Previous Rx's ?Medication ?Instructions ?Recorded aluminum-mag hydroxide-simethicone 5 ml PO BID 2 weeks #140 mL 10/25/25 200 mg-200 mg-20 mg/5 mL oral susp (Maalox Advanced) ascorbate calcium (vitamin C) 500 500 mg PO QDAY #30 tabs 10/25/25 mg tablet ferrous sulfate 325 mg (65 mg 325 mg PO BID 30 days #60 tabs 10/25/25 iron) tablet,delayed release sucralfate 1 gram tablet (Carafate) 1 g PO BID 2 weeks #28 tabs 10/25/25 Allergies Allergy/AdvReac Type Severity Reaction Status Date / Time Penicillins Allergy Intermediate Rash Verified 10/29/25 23:17 cephalexin (From Keflex) Allergy thrush in Verified 10/29/25 23:17 mouth, UTI morphine AdvReac Severe Difficulty Verified 10/29/25 23:17 Breathing Review of Systems Review of Systems Systems Reviewed: All systems reviewed, normal except as documented Past Medical History Past Medical History NEUROLOGIC: Positive Neurological Disorders, Peripheral Neuropathy, Migraine and Head Trauma CARDIAC: Positive Angina, Heart Murmur, Hypercholesterolemia, Congestive Heart Failure and Hypertension RESPIRATORY: Positive Bronchitis and Sleep Apnea GASTROINTESTINAL: Positive Gastrointestinal Disorders, Hemorrhoids and Gastroesophageal Reflux Disease REPRODUCTIVE: Positive Previous Pregnancies MUSCULOSKELETAL: Positive Musculoskeletal Disorders, Arthritis, Rheumatoid Arthritis and Fractures ENT: Positive Cataracts and Head Trauma PSYCHO/SOCIAL: Positive Depression and Anxiety Family History FAMILY HISTORY: Positive Family Psychiatric Problems, Family Respiratory Disorders, Family Cardiac Disorders, Family Cancer and Family Surgery Surgical History SURGICAL: Positive Angiogram, Tonsillectomy, Gastric Bypass Surgery, Hysterectomy and Tubal Ligation Social History SMOKING STATUS: Current every day smoker ED Exam Narrative Physical exam: GEN. APPEARANCE: The patient is alert awake oriented X-3 under no distress, lying down comfortably, does not look ill/toxic. Patient has good eye contact. Patient is cooperative. VITALS: All vitals were reviewed and the pulse ox is 97%, which is normal according to my interpretation HEENT: Normocephalic, atraumatic and nontender. Pupils are equal and reactive. Oral mucosa is moist. NECK: Supple, nontender, no meningismus, no JVD. There is no thyromegaly and no lymphadenopathy. CHEST: Nontender on palpation no deformity and no crepitus. CARDIOVASCULAR: Heart regular rhythm, no murmur or gallop rub or extra beats. LUNGS: Clear to auscultation bilaterally with symmetrical chest rise. No laboring tachypnea or wheezing. No intercostal subcostal retraction. No rales and no rhonchi. ABDOMEN: Soft, flat, point tenderness at high epigastrium, slight guarding, no peritoneal findings noted. There are no abnormal masses palpated. No pulsatile masses or bruits. Active and normal bowel sounds. EXTREMITIES: Normal inspection and palpation. No edema. No cyanosis. Patient is able to move all 4 extremities well SKIN: Warm and dry, no rashes noted. MUSCULOSKELETAL: No lumbar or midline bony tenderness. There is no CVA tenderness. No paraspinal muscle spasm or tenderness. NEURO: Cranial nerves II through XII grossly intact. There are no focal neurologic deficits noted. GCS is 15 PSYCHIATRIC: Patient is in normal mood and affect, cooperative. LYMPHATICS: No major lymphadenopathy noted. Course Quality Measures none Orders Category Date Time Status XR abdomen series w chest 1V Stat Exams 10/30/25 02:22 Taken CBC Stat Lab 10/29/25 23:39 Completed CMP [Comprehensive Metabolic Panel] Stat Lab 10/29/25 23:39 Completed Lactate (Lactic Acid) Stat Lab 10/29/25 23:39 Completed Lipase Stat Lab 10/29/25 23:39 Completed Procalcitonin Stat Lab 10/29/25 23:39 Completed Urinalysis Stat Lab 10/30/25 04:35 Completed Lidocaine 2% Viscous [Xylocaine 2% Viscous] Med 10/29/25 23:39 Discontinued 15 ml PO X1 ONE Metoclopramide Inj [Reglan Inj] Med 10/30/25 02:00 Active 5 mg IVP Q6HR Midazolam Inj [Versed Inj] Med 10/30/25 02:34 Discontinued 2 mg IVP X1 ONE Pantoprazole Inj [Protonix Inj] Med 10/30/25 01:57 Discontinued 40 mg IVP X1 ONE Sodium Chloride 0.9% 1000 ml [Ns] 1,000 ml Med 10/30/25 01:53 Discontinued IV 999 mls/hr Sodium Chloride 0.9% 1000 ml [Ns] 1,000 ml Med 10/30/25 01:57 Discontinued IV 999 mls/hr fentaNYL INJ [Sublimaze Inj] Med 10/30/25 02:34 Discontinued 50 mcg IVP X1 ONE metroNIDAZOLE [Flagyl] Med 10/30/25 04:12 Discontinued 500 mg PO X1 ONE Vital Signs Vital signs: Vital Signs Temperature 98.4 F 10/29/25 23:34 Pulse Rate 81 10/29/25 23:34 Respiratory Rate 20 10/29/25 23:34 Blood Pressure 171/87 H 10/29/25 23:34 Pulse Oximetry (%) 95 10/29/25 23:34 Oxygen Delivery Method Room Air 10/29/25 23:34 Abdominal Pain MDM MDM Narrative MDM Narrative:: Scribe Attestation: Rosa Maria Zaldivar am scribing for and in the presence of Dr. Moore. Provider Notation: Although this document has been carefully reviewed, there may still be some phonetic and other typographical errors. These errors are purely grammatical due to imperfections in the software program and should not be construed in any way to compromise the substance of the patient's medical care during this visit. Patient with Hx of Gastric Bypass in addition to incarcerated ventral hernia repair seen recently for upper endoscopy/biopsy via moderate sedation following ileus, in addition to recurrent UTI. Patient's end sig ulceration at bariatric surgery enastimosis. Please see PE findings. Laboratory markers, including CBC and serum chemistries, demonstrate WBC of 11.3. Patient with stable Hgb and platelet count. No thrombocytopenia or associated bandemia. Serum chemistries essentially unremarkable, excluding slightly low GFR of 48. UA is unremarkable. Routine x-rays without obstructive findings. Patient considered stable for discharge. Will ensure patient on PPI, propulsive agent, and mild laxative. Close F/U with GI specialist recommended. Final diagnoses include Hx of ansatimotic ulcer/gastritis. Patient data External records reviewed:: [facility] previous records (Reviewed prior ED records from 10/21/25. Patient was seen for Abdominal pain.) Clinical information provided by:: patient Social determinants that could affect healthcare access:: none Patient has the following chronic illnesses:: Peripheral Neuropathy, Migraine, Angina, Heart Murmur, Hypercholesterolemia, Congestive Heart Failure, Hypertension, Sleep Apnea, Hemorrhoids and Gastroesophageal Reflux Disease, Arthritis, Rheumatoid Arthritis, Cataracts, Depression and Anxiety How is presenting disease/condition affected by chronic disease/condition?: exacerbated by Evaluation data The following diagnostics were reviewed and interpreted by me:: lab results and radiology exam(s) Lab and/or radiology exams considered but not ordered:: None Interpretation Summary: RADIOLOGY Chest/Abdomen X-Ray: Pending official radiology report. Medications / Prescriptions Medications or Prescriptions considered but not ordered:: None Medication administrations:: Medication Administration History Metoclopramide HCl (Metoclopramide Inj 5 Mg/Ml Vial 2 Ml) 5 mg IVP Q6HR [facility] / [facility]; Protocol Stop: 11/29/25 01:59 Last Admin: 10/30/25 02:23 Dose: 5 mg Documented By: PATRICE Discontinued Medications Fentanyl Citrate (Fentanyl Cit Inj 50 Mcg/Ml Amp 2ml) 50 mcg IVP X1 ONE Stop: 10/30/25 02:35 Last Admin: 10/30/25 02:51 Dose: 50 mcg Documented By: SEGUNDO Sodium Chloride (Ns) 1,000 mls @ 999 mls/hr IV .Q1H1M ONE Stop: 10/30/25 02:53 Last Admin: 10/30/25 02:21 Dose: Not Given Documented By: SEGUNDO Non-Admin Reason: Discontinued Sodium Chloride (Ns) 1,000 mls @ 999 mls/hr IV .Q1H1M ONE Stop: 10/30/25 02:57 Last Infusion: 10/30/25 03:21 Dose: Infused Documented By: Admin: 10/30/25 02:20 Dose: 999 mls/hr Documented By: PATRICE Lidocaine HCl (Lidocaine Viscous 2% 15 Ml Udc) 15 ml PO X1 ONE Stop: 10/29/25 23:40 Last Admin: 10/30/25 00:01 Dose: 15 ml Documented By: SEGUNDO Metronidazole (Metronidazole 250 Mg Tablet) 500 mg PO X1 ONE Stop: 10/30/25 04:13 Last Admin: 10/30/25 04:37 Dose: 500 mg Documented By: PATRICE Midazolam HCl (Midazolam Inj 1 Mg/Ml Vial 2 Ml) 2 mg IVP X1 ONE Stop: 10/30/25 02:35 Last Admin: 10/30/25 02:51 Dose: 2 mg Documented By: SEGUNDO Pantoprazole Sodium (Pantoprazole Inj 40 Mg Vial) 40 mg IVP X1 ONE Stop: 10/30/25 01:58 Last Admin: 10/30/25 02:22 Dose: 40 mg Documented By: PATRICE See above if any. Consultations Consultation(s) initiated? (list below): No Diagnosis Differential diagnosis abdominal pain: abdominal pain, calculus of kidney, constipation, diverticulitis, gastroenteritis and small bowel obstruction Most likely diagnosis given after review of the tests above:: Ulcer at site of surgical anastomosis following bypass of stomach, Gastritis Admission Indicated Admission indicated?: not indicated Explain why admission is indicated or not indicated:: Patient does not meet admission criteria. Admission Request Was there a request for admission?: No Disposition Plan Disposition Plan: Discharge Discharge Attestation Discharge Attestation: The patient and all family members were given an opportunity to ask questions and understood the discharge instructions. Discharge instructions specifically effects, indications for sooner follow up or return to the emergency department, and the expected course of current diagnosis. Patient condition: Stable Discharge Plan Plan Patient Disposition: HOME (Self Care) Prescriptions/Referrals Prescriptions/Med Rec: No Action metoprolol succinate 25 mg tablet extended release 24 hr 25 mg PO BID aripiprazole [Abilify] 5 mg tablet 5 mg PO QDAY Myrbetriq 25 mg tablet extended release 24 hr 25 mg PO QDAY oxybutynin chloride 10 mg tablet extended release 24hr 10 mg PO QDAY lisinopril 10 MG tablet 10 mg PO QDAY Qty: 0 azelastine 137 mcg (0.1 %) Aerosol,[place] 1 spray INTRANASAL BID Qty: 0 sumatriptan succinate [Imitrex] 50 mg tablet 100 mg PO Q2HR PRN (Reason: BREAKTHROUGH PAIN (MILD)) Qty: 0 citalopram 10 mg Tablet 10 mg PO QDAY hydrocodone-acetaminophen 10-325 mg Tablet 1 tab PO Q6H PRN (Reason: Pain) doxepin 100 mg Capsule 100 mg PO HS pantoprazole 40 mg Tablet,Delayed Release (Dr/Ec) 40 mg PO DAILY atorvastatin [Lipitor] 10 mg Tablet 10 mg PO QDAY ascorbate calcium (vitamin C) 500 mg tablet 500 mg PO QDAY Qty: 30 0RF alum-mag hydroxide-simeth [Maalox Advanced] 200-200-20 mg/5 mL suspension 5 ml PO BID 14 Days Qty: 140 0RF sucralfate [Carafate] 1 gram tablet 1 g PO BID 14 Days Qty: 28 0RF ferrous sulfate 325 mg (65 mg iron) Tablet,Delayed Release (Dr/Ec) 325 mg PO BID 30 Days Qty: 60 0RF Referrals: Rima Stewart PA-C [Primary Care Provider] - In 1 week Problem List Clinical Impression: Ulcer at site of surgical anastomosis following bypass of stomach, Gastritis Patient/Caregiver Discharge Instructions Print Language: Romansh Stand Alone Forms: Latoya Award Info., Patient Portal Info Letter
[2025-10-30] MEDS: SODIUM CHLORIDE 0.9% 1000 ML 1,000 ML 999 ML IV (02:20)
--- NOTE | 2025-10-30 02:22 | XR_ITS ---
EXAMINATION: Abdominal series 3 views including upright PA chest TECHNIQUE: Upright PA chest AP upright AP supine abdomen 3 views Date and time: October 30, 2025, 0239 hours INDICATIONS: Abdominal pain beginning 3 days ago. FINDINGS: Abundant stool in the right and transverse colon as well as rectosigmoid Small bowel obstruction pattern is not depicted Gallstones Mild prominence left ventricle Accentuation basilar bronchovascular markings Subtle density in the right upper lobe which may represent early infiltrate IMPRESSION: Abundant stool throughout the colon, no obstruction Basilar bronchitis pattern, recommend follow-up chest x-ray to exclude early pneumonia right upper lobe as clinically warranted
[2025-10-30] MEDS: METOCLOPRAMIDE INJ 5 MG/ML VIAL 2 ML IVP ×2 (02:23→06:48)
[2025-10-30 02:27] VITALS: BP 193/96; PULSE 64; RESP 20; O2SAT 97
[2025-10-30] MEDS: fentaNYL CIT INJ 50 mCg/ML AMP 2ML IVP (02:51)
[2025-10-30] MEDS: MIDAZOLAM INJ 1 MG/ML VIAL 2 ML 2 MG IVP (02:51)
[2025-10-30 02:56] VITALS: BP 176/69; PULSE 65
[2025-10-30 04:42] LABS: Collection Type, Urine Voided
[2025-10-30 04:49] LABS: Bilirubin,Urine Negative (Negative); Blood,Urine Negative (Negative); Clarity,Urine Clear (Clear/Hazy); Color,Urine Lt-Yellow (Lt Yel-Yel); Glucose, Urine Negative (Negative); Ketones,Urine Negative (Negative); Leukocyte Esterase,Urine Negative (Negative); Nitrite,Urine Negative (Negative); PH,Urine 6.0 (5.0-7.0); Protein,Urine Trace (Neg - Trace); RBC,Urine 4 /hpf (0-3); Specific Gravity,Urine 1.023 (1.001-1.035); Squamous Epithelial Cell,Urine 1 /hpf (0-5); Urobilinogen,Urine Negative mg/dL (0.0-1.0); WBC,Urine 2 /hpf (0-5)
[2025-10-30 06:00] VITALS: BP 144/66; PULSE 83; RESP 16; TEMP 37; O2SAT 99
[2025-10-30 06:42] VITALS: BP 144/66; PULSE 83; RESP 16; TEMP 37; O2SAT 99
== END 2025-10-30 06:53 | disposition home or self-care (01) ==
PROVIDERS: Physician Assistant; Emergency Provider Emergency Medicine; PCP Physician Assistant
DX: K29.70 Gastritis, unspecified, without bleeding (principal); K28.9 Gastrojejunal ulcer, unspecified as acute or chronic, without hemorrhage or perforation; Z98.84 Bariatric surgery status; I13.0 Hypertensive heart and chronic kidney disease with heart failure and stage 1 through stage 4 chronic kidney disease, or unspecified chronic kidney disease; I50.9 Heart failure, unspecified; N18.9 Chronic kidney disease, unspecified; E78.00 Pure hypercholesterolemia, unspecified; F41.9 Anxiety disorder, unspecified; F32.A Depression, unspecified; G47.30 Sleep apnea, unspecified; K21.9 Gastro-esophageal reflux disease without esophagitis; M06.9 Rheumatoid arthritis, unspecified
CPT/HCPCS: 36415; 74022; 80053; 81001; 83605; 83690; 84145; 85025; 96361; 96374; 96375; 96376; 99284; J2250; J2470; J2765; J3010; J3490; J7030; A9270

== ENCOUNTER 2025-10-31 16:58 | Emergency (ER) | payer MEDICARE, MEDICAID, SELFPAY ==
[2025-10-31 16:59] VITALS: BMI 23.8
[2025-10-31 18:22] VITALS: BP 163/86; PULSE 87; RESP 22; TEMP 36.7; O2SAT 97
--- NOTE | 2025-10-31 18:35 | XR_ITS ---
EXAMINATION: PA chest single view TECHNIQUE: Upright PA chest single view Date and time: October 31, 2025, 1842 hours INDICATION: Shortness of breath today FINDINGS: Minor prominence left ventricle Mild ectasia thoracic aorta. No lobar pneumonia or pulmonary edema. Severe osteopenia IMPRESSION: No pneumonia or pulmonary edema
[2025-10-31 19:03] LABS: Basophils # (Auto) 0.0 Thou/mm3 (0.0-0.2); Basophils % (Auto) 0 % (0-2.5); Eosinophils # (Auto) 0.0 Thou/mm3 (0.0-0.5); Eosinophils % (Auto) 0 % (0-10); Hematocrit 36.9 % (36.0-46.0); Hemoglobin 12.2 g/dL (12.0-16.0); Immature Granulocytes Auto 0.04 Thou/mm3 (0.00-0.00); Lymphocytes # (Auto) 1.5 Thou/mm3 (1.0-4.8); Lymphocytes % (Auto) 13 % (10-50); Mean Corpuscular HGB Conc 33.1 g/dl (31.0-37.0); Mean Corpuscular Hemoglobin 27.9 pg (25.0-35.0); Mean Corpuscular Volume 84 fL (80-100); Monocytes # (Auto) 0.7 Thou/mm3 (0.0-0.8); Monocytes % (Auto) 6 % (0-12); Neutrophils # (Auto) 9.2 Thou/mm3 (1.8-7.7); Neutrophils % (Auto) 80 % (37-80); Nucleated Red Blood Cell # 0.00 Thou/mm3 (0.00-0.00); Nucleated Red Blood Cell % 0 /100 WBC (0); Platelet Count 317 Thou/mm3 (140-440); RDW Standard Deviation 45.7 fL (36.4-46.3); Red Blood Count 4.37 Miln/mm3 (4.00-5.20); White Blood Count 11.5 Thou/mm3 (3.6-11.0)
[2025-10-31 19:09] LABS: Collection Type, Urine Clean Catch
[2025-10-31 19:13] LABS: Bilirubin,Urine Negative (Negative); Blood,Urine Negative (Negative); Clarity,Urine Clear (Clear/Hazy); Color,Urine Yellow (Lt Yel-Yel); Glucose, Urine Negative (Negative); Hyaline Casts,Urine < 1 /hpf (0-1); Ketones,Urine 2+ (Negative); Leukocyte Esterase,Urine Positive (Negative); Nitrite,Urine Negative (Negative); PH,Urine 7.0 (5.0-7.0); Protein,Urine 1+ (Neg - Trace); RBC,Urine 5 /hpf (0-3); Specific Gravity,Urine 1.029 (1.001-1.035); Squamous Epithelial Cell,Urine 3 /hpf (0-5); Urobilinogen,Urine 2.0 mg/dL (0.0-1.0); WBC,Urine 2 /hpf (0-5)
[2025-10-31] MEDS: HYDROmorphone INJ 2 MG/ML VIAL 0.5 MG IM (19:13)
[2025-10-31 19:14] LABS: B-Type Natriuretic Peptide 270 pg/mL (0-100)
[2025-10-31] MEDS: ONDANSETRON ODT 4 MG TABRAP PO (19:14)
[2025-10-31 19:18] LABS: Alanine Aminotransferase 8 U/L (10-49); Albumin, Serum 3.7 gm/dL (3.4-4.8); Albumin/Globulin Ratio 1.5 (1.2-2.2); Alkaline Phosphatase 118 U/L (46-116); Anion Gap 9 (7-16); Aspartate Amino Transferase < 8 U/L (0-34); BUN/Creatinine Ratio 11 Ratio (12-20); Bilirubin,Total 0.5 mg/dL (0.3-1.2); Blood Urea Nitrogen 8 mg/dL (9-23); Calcium 10.0 mg/dL (8.3-10.6); Calcium (Corrected) 10.2 mg/dL (8.5-10.1); Carbon Dioxide 27.5 mMol/L (20.0-31.0); Chloride 105 mMol/L (98-107); Creatinine (Component) 0.7 mg/dL (0.6-1.3); Estimated Creatinine Clearance 55.8 mL/min (>60); Globulin 2.5 gm/dL (2.3-3.5); Glucose 105 mg/dL (74-106); Lipase 22 U/L (12-53); Osmolality,Calculated 279 (275-295); Potassium 3.5 mMol/L (3.4-5.1); Sodium 141 mMol/L (136-145); Total Protein 6.2 gm/dL (5.7-8.2); Troponin I < 0.020 ng/mL (0.0-0.045); eGFR > 60 See Note
[2025-10-31] MEDS: MG HYD/AL HYD/SIME (Maalox Reg) SUSP 30 ML UDC PO (19:54)
--- NOTE | 2025-10-31 20:03 | PD.EDABDPN ---
ED Abdominal Pain RME/HPI General Chief Complaint: Abdominal Pain Stated complaint: MID UPPER ABD PAIN X1 DAY; AMS X3 HRS Time seen by provider: 10/31/25 18:29 Arrival date/time: 10/31/25 16:58 Source: patient Mode of arrival: ambulatory Limitations: other (Progressive dementia) RME / HPI RME / HPI narrative: Patient is a 75-year-old female who was brought to the facility by her friend for evaluation of abdominal pain concerns. Patient states the pain began yesterday and has continued. Patient states pain is burning and sharp. 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 Patient states a history of peptic ulcers. At time of arrival, patient was mildly hypertensive and tachypneic Related Data Home Medications ?Medication ?Instructions ?Recorded ?Confirmed azelastine 137 mcg (0.1 %) nasal 1 spray intranasal BID #0 spry 08/02/17 10/22/25 spray lisinopril 10 mg tablet 10 mg PO QDAY #0 tabs 08/02/17 10/22/25 atorvastatin 10 mg tablet (Lipitor) 10 mg PO QDAY 12/04/18 10/22/25 metoprolol succinate 25 mg 25 mg PO BID 02/21/21 10/22/25 tablet,extended release 24 hr citalopram 10 mg tablet 10 mg PO QDAY 06/28/21 10/22/25 doxepin 100 mg capsule 100 mg PO HS 06/28/21 10/22/25 hydrocodone 10 mg-acetaminophen 1 tab PO Q6H PRN Pain 06/28/21 10/22/25 325 mg tablet pantoprazole 40 mg tablet,delayed 40 mg PO DAILY 06/28/21 10/22/25 release aripiprazole 5 mg tablet (Abilify) 5 mg PO QDAY 10/12/23 10/22/25 sumatriptan succinate 50 mg tablet 100 mg PO Q2HR PRN BREAKTHROUGH 10/12/23 10/22/25 (Imitrex) PAIN (MILD) #0 tabs mirabegron 25 mg tablet,extended 25 mg PO QDAY 02/11/24 10/22/25 release 24 hr (Myrbetriq) oxybutynin chloride 10 mg 10 mg PO QDAY 02/11/24 10/22/25 tablet,extended release 24 hr Previous Rx's ?Medication ?Instructions ?Recorded aluminum-mag hydroxide-simethicone 5 ml PO BID 2 weeks #140 mL 10/25/25 200 mg-200 mg-20 mg/5 mL oral susp (Maalox Advanced) ascorbate calcium (vitamin C) 500 500 mg PO QDAY #30 tabs 10/25/25 mg tablet ferrous sulfate 325 mg (65 mg 325 mg PO BID 30 days #60 tabs 10/25/25 iron) tablet,delayed release sucralfate 1 gram tablet (Carafate) 1 g PO BID 2 weeks #28 tabs 10/25/25 acetaminophen 300 mg-codeine 15 mg 1 tab PO Q8H PRN pain #14 tabs 10/30/25 tablet magnesium hydroxide 2,400 mg/10 mL 10 ml PO BID PRN constipation #500 10/30/25 oral suspension (Milk Of Magnesia mL Concentrated) omeprazole magnesium 10 mg oral 20 mg PO BID gastritis #30 ea 10/30/25 suspension,delayed release (Prilosec) omeprazole 20 mg capsule,delayed 20 mg PO QDAY 14 days #14 caps 10/31/25 release Allergies Allergy/AdvReac Type Severity Reaction Status Date / Time Penicillins Allergy Intermediate Rash Verified 10/31/25 17:03 cephalexin (From Keflex) Allergy thrush in Verified 10/31/25 17:03 mouth, UTI morphine AdvReac Severe Difficulty Verified 10/31/25 17:03 Breathing Review of Systems Review of Systems Systems Reviewed: All systems reviewed, normal except as documented Past Medical History Past Medical History NEUROLOGIC: Positive Neurological Disorders, Peripheral Neuropathy, Migraine and Head Trauma; Negative Seizures CARDIAC: Positive Angina, Heart Murmur, Hypercholesterolemia, Congestive Heart Failure and Hypertension; Negative Cardiac Disorders, Edema, Cellulitis or Varicose Veins RESPIRATORY: Positive Bronchitis and Sleep Apnea; Negative Chronic Obstructive Pulmonary Disease (COPD) or Tuberculosis GASTROINTESTINAL: Positive Gastrointestinal Disorders, Hemorrhoids and Gastroesophageal Reflux Disease; Negative Hepatitis GENITOURINARY: Negative Genitourinary Disorders or Renal Disease REPRODUCTIVE: Positive Previous Pregnancies MUSCULOSKELETAL: Positive Musculoskeletal Disorders, Arthritis, Rheumatoid Arthritis and Fractures ENT: Positive Cataracts and Head Trauma ENDOCRINE: Negative Endocrine Disorders, Diabetes Mellitus Type 1 or Diabetes Mellitus Type 2 HEMATOLOGIC: Negative Blood Disorders or Sickle Cell Disease PSYCHO/SOCIAL: Positive Depression and Anxiety OTHER HISTORY: Negative Hospitalization, Autoimmune Disease, Shingles, Falls, Blood Transfusions, Blood Transfusion Reaction, Anesthesia Reactions, Chemotherapy, Radiation Therapy, MRSA, Chicken Pox, Measles, Mumps or Cancer Family History FAMILY HISTORY: Positive Family Psychiatric Problems, Family Respiratory Disorders, Family Cardiac Disorders, Family Cancer and Family Surgery; Negative Family Gastrointestinal Problems or Family Anesthesia Reaction Surgical History SURGICAL: Positive Angiogram, Tonsillectomy, Gastric Bypass Surgery, Hysterectomy and Tubal Ligation; Negative Pacemaker Social History SMOKING STATUS: Light (< 1 pack/day) SECOND HAND EXPOSURE: No SUBSTANCE USE: does not use ED Exam Narrative Physical exam: Patient appeared to be uncomfortable at time of evaluation. General Limitations: Present other (Progressive dementia) General appearance: Present alert and in no apparent distress Head Head exam: Present atraumatic Eye Eye exam: Present normal appearance, PERRL and EOMI ENT ENT exam: Present normal exam, normal oropharynx and mucous membranes moist Neck Neck exam: Present normal inspection, full ROM and trachea midline Chest Chest inspection: Present normal inspection and symmetric chest wall rise Respiratory Respiratory exam: Present normal lung sounds bilaterally Cardiovascular Cardiovascular exam: Present regular rate, normal rhythm and normal heart sounds Abdominal Exam Abdominal exam: Present other (Diffuse bilateral epigastric tenderness to palpation. Abdomen was mildly rigid. No pulsatile masses.) Extremities Exam Extremities exam: Present normal inspection and full ROM Back Exam Back exam: Present normal inspection and full ROM Neurological Exam Neurological exam: Present alert, oriented X3 and CN II-XII intact Psychiatric Psychiatric exam: Present normal affect and normal mood Skin Skin exam: Present warm, dry, intact and normal color Course Quality Measures none Orders Category Date Time Status XR chest 1V portable Stat Exams 10/31/25 18:35 Completed BNP [B-Type Natriuretic Peptide] Stat Lab 10/31/25 18:46 Completed CBC Stat Lab 10/31/25 18:46 Completed CMP [Comprehensive Metabolic Panel] Stat Lab 10/31/25 18:46 Completed Lipase Stat Lab 10/31/25 18:46 Completed Troponin I Stat Lab 10/31/25 18:46 Completed UA [Urinalysis] Stat Lab 10/31/25 19:03 Completed HYDROmorphone INJ [Dilaudid Inj] Med 10/31/25 18:33 Discontinued 0.5 mg IM X1 ONE Ondansetron Odt [Zofran Odt] Med 10/31/25 18:33 Discontinued 4 mg PO X1 ONE mg Hyd/Al Hyd/Bety Susp [Maalox Susp] Med 10/31/25 19:46 Discontinued 30 ml PO X1 ONE As noted above Vital Signs Vital signs: Vital Signs Temperature 98.1 F 10/31/25 18:22 Pulse Rate 87 10/31/25 18:22 Respiratory Rate 22 H 10/31/25 18:22 Blood Pressure 163/86 H 10/31/25 18:22 Pulse Oximetry (%) 97 10/31/25 18:22 Oxygen Delivery Method Room Air 10/31/25 18:22 As noted above Abdominal Pain MDM MDM Narrative MDM Narrative:: All studies performed the ED were evaluated by me personally. Patient states reasonable response to her abdominal pain concerns status post medication dispense. Serum studies were relatively unremarkable other than a elevation in BNP. Discussed this with the patient advised that she needs to follow-up with her primary care provider for evaluation of possible congestive heart failure issues. Patient states she does not want to be admitted and has a small window for a ride for departure and therefore, patient will be allowed to leave the facility. I will prescribe the patient a proton pump inhibitor to be used for the next few weeks to hopefully aid in her GI complaints. Patient data External records reviewed:: [facility] previous records Clinical information provided by:: patient Social determinants that could affect healthcare access:: other (specify) (Progressive dementia) Patient has the following chronic illnesses:: None How is presenting disease/condition affected by chronic disease/condition?: no chronic disease Evaluation data The following diagnostics were reviewed and interpreted by me:: lab results Lab and/or radiology exams considered but not ordered:: None Interpretation Summary: Gastric ulcer, elevated BNP Medications / Prescriptions Medications or Prescriptions considered but not ordered:: None Medication administrations:: Medication Administration History Discontinued Medications Al Hydrox/Mg Hydrox/Simethicone (Mg Hyd/Al Hyd/Bety (Maalox Reg) Susp 30 Ml Udc) 30 ml PO X1 ONE Stop: 10/31/25 19:47 Last Admin: 10/31/25 19:54 Dose: 30 ml Documented By: COLBY Hydromorphone HCl (Hydromorphone Inj 2 Mg/Ml Vial) 0.5 mg IM X1 ONE Stop: 10/31/25 18:34 Last Admin: 10/31/25 19:13 Dose: 0.5 mg Documented By: RIKKI Ondansetron HCl (Ondansetron Odt 4 Mg Tabrap) 4 mg PO X1 ONE; Protocol Stop: 10/31/25 18:34 Last Admin: 10/31/25 19:14 Dose: 4 mg Documented By: RIKKI As noted above Consultations Consultation(s) initiated? (list below): No Diagnosis Differential diagnosis abdominal pain: abdominal pain, gastroenteritis, pancreatitis and other (Gastric ulcer) Most likely diagnosis given after review of the tests above:: Gastric ulcer Admission Indicated Admission indicated?: not indicated Explain why admission is indicated or not indicated:: Unwarranted Admission Request Was there a request for admission?: No Disposition Plan Disposition Plan: Discharge Discharge Attestation Discharge Attestation: The patient and all family members were given an opportunity to ask questions and understood the discharge instructions. Discharge instructions specifically effects, indications for sooner follow up or return to the emergency department, and the expected course of current diagnosis. Patient condition: Stable Discharge Plan Plan Patient Disposition: HOME (Self Care) Prescriptions/Referrals Prescriptions/Med Rec: New omeprazole 20 mg capsule,delayed release(DR/EC) 20 mg PO QDAY 14 Days Qty: 14 0RF No Action metoprolol succinate 25 mg tablet extended release 24 hr 25 mg PO BID aripiprazole [Abilify] 5 mg tablet 5 mg PO QDAY Myrbetriq 25 mg tablet extended release 24 hr 25 mg PO QDAY oxybutynin chloride 10 mg tablet extended release 24hr 10 mg PO QDAY lisinopril 10 MG tablet 10 mg PO QDAY Qty: 0 azelastine 137 mcg (0.1 %) Aerosol,[place] 1 spray INTRANASAL BID Qty: 0 sumatriptan succinate [Imitrex] 50 mg tablet 100 mg PO Q2HR PRN (Reason: BREAKTHROUGH PAIN (MILD)) Qty: 0 citalopram 10 mg Tablet 10 mg PO QDAY hydrocodone-acetaminophen 10-325 mg Tablet 1 tab PO Q6H PRN (Reason: Pain) doxepin 100 mg Capsule 100 mg PO HS pantoprazole 40 mg Tablet,Delayed Release (Dr/Ec) 40 mg PO DAILY atorvastatin [Lipitor] 10 mg Tablet 10 mg PO QDAY ascorbate calcium (vitamin C) 500 mg tablet 500 mg PO QDAY Qty: 30 0RF alum-mag hydroxide-simeth [Maalox Advanced] 200-200-20 mg/5 mL suspension 5 ml PO BID 14 Days Qty: 140 0RF sucralfate [Carafate] 1 gram tablet 1 g PO BID 14 Days Qty: 28 0RF ferrous sulfate 325 mg (65 mg iron) Tablet,Delayed Release (Dr/Ec) 325 mg PO BID 30 Days Qty: 60 0RF Prilosec 10 mg susp,delayed release for recon 20 mg PO BID Qty: 30 0RF magnesium hydroxide [Milk Of Magnesia Concentrated] 2,400 mg/10 mL suspension 10 ml PO BID PRN (Reason: constipation) Qty: 500 0RF acetaminophen-codeine 300-15 mg tablet 1 tab PO Q8H PRN (Reason: pain) Qty: 14 0RF Referrals: No Primary/Family,Physician [Primary Care Provider] - In 1 week Problem List Clinical Impression: Peptic ulcer Patient/Caregiver Discharge Instructions Education Materials: ED PEPTIC ULCER vs GASTRITIS Additional Instructions: Advised patient utilize omeprazole for the next 14 days. Patient needs to follow-up with primary care provider for discussions related to her continuing peptic ulcer concerns as well as possible developing congestive heart failure. Print Language: Cambodian Stand Alone Forms: [employer] Award Info., Patient Portal Info Letter
== END 2025-10-31 20:12 | disposition home or self-care (01) ==
PROVIDERS: Emergency Provider Physician Assistant
DX: K27.9 Peptic ulcer, site unspecified, unspecified as acute or chronic, without hemorrhage or perforation (principal); R79.89 Other specified abnormal findings of blood chemistry
CPT/HCPCS: 36415; 71045; 80053; 81001; 83690; 83880; 84484; 85025; 96372; 99283; J1171; Q0162; A9270

== ENCOUNTER 2025-11-02 10:44 | Emergency (ER) | payer MEDICARE, MEDICAID, SELFPAY ==
[2025-11-02 10:58] VITALS: BP 162/90; PULSE 85; RESP 19; TEMP 36.7; O2SAT 95; BMI 21.9
--- NOTE | 2025-11-02 11:03 | XR_ITS ---
Study: Gallbladder ultrasound at 1240 hours 02 November 2025. INDICATION: CT follow-up examination. TECHNIQUE: Grayscale ultrasound with color flow Doppler. 1246 hours 02 November 2025. FINDINGS: The gallbladder wall is thin and there are multiple contained echogenic shadowing stones.. The common bile duct measures 0.6 cm. The liver measures 15.6 cm in the midclavicular line and is diffusely hyperechoic echoic consistent with fatty infiltration. There is no cyst, solid mass or ectatic duct. Portal vein flow is toward the liver. The portal vein measures 1.2 cm diameter. The IVC is patent. The aorta is normal in caliber. The limited view of the right kidney is unremarkable. IMPRESSION: 1. Cholelithiasis without cholecystitis. 2. Fatty liver.
--- NOTE | 2025-11-02 11:03 | XR_ITS ---
Examination: CT abdomen and pelvis without contrast. Coronal 3-D reconstructions. Sagittal 2-D reconstructions. Date and time of exam: November 02, 2025, 1133 hours COMPARISON: October 21, 2025 INDICATIONS: Generalized abdominal pain today CTDI: vol (mGy): 5.75 DLP: (mGycm): 299 Technique: Axial images of the abdomen have been obtained, 3 mm slice thickness Intravenous contrast material has not been administered. Low dose protocols were performed. One or more of the following dose reduction techniques were used; automated exposure control, adjustment of the mA and/or KV according to patient size, use of iterative reconstruction technique. Findings: Trace pericardial effusion Liver lesion not appreciated on this noncontrast study Cholelithiasis Spleen is not enlarged No pancreatic mass Gastric sutures 1 mm nonobstructing left renal calculus, no hydronephrosis or ureteral calculi Mildly fluid distended small bowel loops No pericecal inflammatory change No diverticulitis Intact urinary bladder No pelvic mass Prominent osteopenia IMPRESSION: Cholelithiasis, recommend hepatobiliary sonography follow-up 1 mm nonobstructing left renal calculus Mild small bowel ileus versus enteritis Colonic diverticulosis, no diverticulitis No bowel obstruction
--- NOTE | 2025-11-02 11:05 | EDRME_ITS ---
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 A comprehensive ED assessment and evaluation of the patient, analysis of all test results, and completion of the medical decision making process will be conducted by additional ED providers. Chief Complaint: Abdominal Pain Vital signs: Vital Signs Temperature 98.1 F 11/02/25 10:58 Pulse Rate 85 11/02/25 10:58 Respiratory Rate 19 11/02/25 10:58 Blood Pressure 162/90 H 11/02/25 10:58 Pulse Oximetry (%) 95 11/02/25 10:58 Oxygen Delivery Method Room Air 11/02/25 10:58 Vital signs reviewed by provider: Yes Exam: 8 out of 10 abdominal pain with palpation Clear bilateral lung sounds Clinical Impression: GI bleed/gastritis
[2025-11-02] MEDS: MG HYD/AL HYD/SIME (Maalox Reg) SUSP 30 ML UDC PO (11:21)
[2025-11-02 12:17] LABS: Basophils # (Auto) 0.0 Thou/mm3 (0.0-0.2); Basophils % (Auto) 0 % (0-2.5); Eosinophils # (Auto) 0.0 Thou/mm3 (0.0-0.5); Eosinophils % (Auto) 0 % (0-10); Hematocrit 34.4 % (36.0-46.0); Hemoglobin 11.1 g/dL (12.0-16.0); Immature Granulocytes Auto 0.05 Thou/mm3 (0.00-0.00); Lymphocytes # (Auto) 1.1 Thou/mm3 (1.0-4.8); Lymphocytes % (Auto) 9 % (10-50); Mean Corpuscular HGB Conc 32.3 g/dl (31.0-37.0); Mean Corpuscular Hemoglobin 26.9 pg (25.0-35.0); Mean Corpuscular Volume 84 fL (80-100); Monocytes # (Auto) 0.6 Thou/mm3 (0.0-0.8); Monocytes % (Auto) 5 % (0-12); Neutrophils # (Auto) 10.6 Thou/mm3 (1.8-7.7); Neutrophils % (Auto) 86 % (37-80); Nucleated Red Blood Cell # 0.00 Thou/mm3 (0.00-0.00); Nucleated Red Blood Cell % 0 /100 WBC (0); Platelet Count 253 Thou/mm3 (140-440); RDW Standard Deviation 45.7 fL (36.4-46.3); Red Blood Count 4.12 Miln/mm3 (4.00-5.20); White Blood Count 12.4 Thou/mm3 (3.6-11.0)
[2025-11-02 12:24] LABS: INR 1.0 (0.9-1.3); Partial Thromboplastin Time 27.6 Seconds (22.0-36.0); Prothrombin Time 10.3 Seconds (9.0-12.2)
[2025-11-02 12:33] LABS: Ammonia < 10 uMol/L (11-32)
[2025-11-02 12:39] LABS: Alanine Aminotransferase < 7 U/L (10-49); Albumin, Serum 3.7 gm/dL (3.4-4.8); Albumin/Globulin Ratio 1.5 (1.2-2.2); Alkaline Phosphatase 114 U/L (46-116); Anion Gap 11 (7-16); Aspartate Amino Transferase 16 U/L (0-34); BUN/Creatinine Ratio 13 Ratio (12-20); Bilirubin,Total 0.5 mg/dL (0.3-1.2); Blood Urea Nitrogen 10 mg/dL (9-23); Calcium 9.4 mg/dL (8.3-10.6); Calcium (Corrected) 9.6 mg/dL (8.5-10.1); Carbon Dioxide 27.6 mMol/L (20.0-31.0); Chloride 103 mMol/L (98-107); Creatinine (Component) 0.8 mg/dL (0.6-1.3); Estimated Creatinine Clearance 48.8 mL/min (>60); Globulin 2.5 gm/dL (2.3-3.5); Glucose 105 mg/dL (74-106); Lipase 23 U/L (12-53); Osmolality,Calculated 282 (275-295); Potassium 3.5 mMol/L (3.4-5.1); Sodium 142 mMol/L (136-145); Total Protein 6.2 gm/dL (5.7-8.2); eGFR > 60 See Note
[2025-11-02 13:12] LABS: Collection Type, Urine Clean Catch; RBC,Urine 0 /hpf (0-3); WBC,Urine 0 /hpf (0-5)
[2025-11-02 13:19] LABS: Bacteria,Urine 1+; Bilirubin,Urine 1+ (Negative); Blood,Urine Negative (Negative); Clarity,Urine Turbid (Clear/Hazy); Color,Urine Yellow (Lt Yel-Yel); Glucose, Urine Negative (Negative); Hyaline Casts,Urine < 1 /hpf (0-1); Ketones,Urine 2+ (Negative); Leukocyte Esterase,Urine Negative (Negative); Nitrite,Urine Negative (Negative); PH,Urine 7.0 (5.0-7.0); Protein,Urine 1+ (Neg - Trace); Specific Gravity,Urine 1.030 (1.001-1.035); Squamous Epithelial Cell,Urine 1 /hpf (0-5); Urobilinogen,Urine 2.0 mg/dL (0.0-1.0)
[2025-11-02] MEDS: KETOROLAC INJ 30 MG/ML VIAL IVP (13:31)
[2025-11-02 17:13] VITALS: BP 134/87; PULSE 87; RESP 19; O2SAT 98
--- NOTE | 2025-11-02 17:25 | PD.EDABDPN ---
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 A comprehensive ED assessment and evaluation of the patient, analysis of all test results, and completion of the medical decision making process will be conducted by additional ED providers. DR. BABCOCK MAIN ED EVALUATION: 75 year old female with history of peptic ulcers, prior GI bleed, hypertension, hyperlipidemia presents to the ED for evaluation of epigastric abdominal pain beginning several days ago and worsening today. Described as aching burning in sensation that is located most to the epigastric region without radiation, rating 9/10 in severity. Reportedly had been referred to see GI Dr. Chino. However, states he does not accept her insurance and is requesting a referral to a different GI specialist. No other associated symptoms reported. Denies fevers, chills, sweats, chest pain, cough, shortness of breath, vomiting, diarrhea, constipation, or urinary symptoms. Exam: 8 out of 10 abdominal pain with palpation Clear bilateral lung sounds Impression: GI bleed/gastritis Related Data Home Medications ?Medication ?Instructions ?Recorded ?Confirmed azelastine 137 mcg (0.1 %) nasal 1 spray intranasal BID #0 spry 08/02/17 10/22/25 spray lisinopril 10 mg tablet 10 mg PO QDAY #0 tabs 08/02/17 10/22/25 atorvastatin 10 mg tablet (Lipitor) 10 mg PO QDAY 12/04/18 10/22/25 metoprolol succinate 25 mg 25 mg PO BID 02/21/21 10/22/25 tablet,extended release 24 hr citalopram 10 mg tablet 10 mg PO QDAY 06/28/21 10/22/25 doxepin 100 mg capsule 100 mg PO HS 06/28/21 10/22/25 hydrocodone 10 mg-acetaminophen 1 tab PO Q6H PRN Pain 06/28/21 10/22/25 325 mg tablet pantoprazole 40 mg tablet,delayed 40 mg PO DAILY 06/28/21 10/22/25 release aripiprazole 5 mg tablet (Abilify) 5 mg PO QDAY 10/12/23 10/22/25 sumatriptan succinate 50 mg tablet 100 mg PO Q2HR PRN BREAKTHROUGH 10/12/23 10/22/25 (Imitrex) PAIN (MILD) #0 tabs mirabegron 25 mg tablet,extended 25 mg PO QDAY 02/11/24 10/22/25 release 24 hr (Myrbetriq) oxybutynin chloride 10 mg 10 mg PO QDAY 02/11/24 10/22/25 tablet,extended release 24 hr Previous Rx's ?Medication ?Instructions ?Recorded aluminum-mag hydroxide-simethicone 5 ml PO BID 2 weeks #140 mL 10/25/25 200 mg-200 mg-20 mg/5 mL oral susp (Maalox Advanced) ascorbate calcium (vitamin C) 500 500 mg PO QDAY #30 tabs 10/25/25 mg tablet ferrous sulfate 325 mg (65 mg 325 mg PO BID 30 days #60 tabs 10/25/25 iron) tablet,delayed release sucralfate 1 gram tablet (Carafate) 1 g PO BID 2 weeks #28 tabs 10/25/25 acetaminophen 300 mg-codeine 15 mg 1 tab PO Q8H PRN pain #14 tabs 10/30/25 tablet magnesium hydroxide 2,400 mg/10 mL 10 ml PO BID PRN constipation #500 10/30/25 oral suspension (Milk Of Magnesia mL Concentrated) omeprazole magnesium 10 mg oral 20 mg PO BID gastritis #30 ea 10/30/25 suspension,delayed release (Prilosec) omeprazole 20 mg capsule,delayed 20 mg PO QDAY 14 days #14 caps 10/31/25 release Allergies Allergy/AdvReac Type Severity Reaction Status Date / Time Penicillins Allergy Intermediate Rash Verified 11/02/25 10:48 cephalexin (From Keflex) Allergy thrush in Verified 11/02/25 10:48 mouth, UTI morphine AdvReac Severe Difficulty Verified 11/02/25 10:48 Breathing Review of Systems Review of Systems Systems Reviewed: All systems reviewed, normal except as documented Past Medical History Past Medical History NEUROLOGIC: Positive Neurological Disorders, Peripheral Neuropathy, Migraine and Head Trauma CARDIAC: Positive Angina, Heart Murmur, Hypercholesterolemia, Congestive Heart Failure and Hypertension RESPIRATORY: Positive Bronchitis and Sleep Apnea GASTROINTESTINAL: Positive Gastrointestinal Disorders, Hemorrhoids and Gastroesophageal Reflux Disease REPRODUCTIVE: Positive Previous Pregnancies MUSCULOSKELETAL: Positive Musculoskeletal Disorders, Arthritis, Rheumatoid Arthritis and Fractures ENT: Positive Cataracts and Head Trauma PSYCHO/SOCIAL: Positive Depression and Anxiety Family History FAMILY HISTORY: Positive Family Psychiatric Problems, Family Respiratory Disorders, Family Cardiac Disorders, Family Cancer and Family Surgery Surgical History SURGICAL: Positive Angiogram, Tonsillectomy, Gastric Bypass Surgery, Hysterectomy and Tubal Ligation Social History SMOKING STATUS: Current every day smoker SECOND HAND EXPOSURE: No SUBSTANCE USE: does not use ED Exam General Limitations: Present no limitations General appearance: Present alert and other (Slightly disheveled, alert, oriented) Head Head exam: Present atraumatic Eye Eye exam: Present normal appearance, PERRL and EOMI ENT ENT exam: Present normal exam, normal oropharynx and mucous membranes moist Neck Neck exam: Present normal inspection, full ROM and trachea midline Chest Chest inspection: Present normal inspection and symmetric chest wall rise Respiratory Respiratory exam: Present normal lung sounds bilaterally Cardiovascular Cardiovascular exam: Present regular rate, normal rhythm and normal heart sounds Abdominal Exam Abdominal exam: Present soft, tenderness (mid epigastric tenderness 1+, no rebound, no percussion ) and normal bowel sounds; Absent distention, guarding, rebound or rigidity Extremities Exam Extremities exam: Present normal inspection and full ROM Back Exam Back exam: Present normal inspection and full ROM Neurological Exam Neurological exam: Present alert, oriented X3 and CN II-XII intact Psychiatric Psychiatric exam: Present normal affect and normal mood Skin Skin exam: Present warm, dry, intact and normal color Course Quality Measures none Orders Category Date Time Status Insert IV STAT Care 11/02/25 11:[address] abdomen pelvis wo con Stat Exams 11/02/25 11:03 Completed US gall bladder Stat Exams 11/02/25 11:03 Completed Ammonia Stat Lab 11/02/25 11:48 Completed CBC Stat Lab 11/02/25 11:48 Completed CMP [Comprehensive Metabolic Panel] Stat Lab 11/02/25 11:48 Completed Lipase Stat Lab 11/02/25 11:48 Completed PT [Prothrombin Time with INR] Stat Lab 11/02/25 11:48 Completed PTT [Partial Thromboplastin Time] Stat Lab 11/02/25 11:48 Completed Type and Screen Stat Lab 11/02/25 11:48 Completed UA [Urinalysis] Stat Lab 11/02/25 13:05 Completed Urine Culture Stat Lab 11/02/25 13:05 Received Ketorolac Inj [Toradol Inj] Med 11/02/25 11:05 Discontinued 30 mg IVP X1 ONE mg Hyd/Al Hyd/Bety Susp [Maalox Susp] Med 11/02/25 11:05 Discontinued 30 ml PO X1 ONE Vital Signs Vital signs: Vital Signs Temperature 98.1 F 11/02/25 10:58 Pulse Rate 85 11/02/25 10:58 Respiratory Rate 19 11/02/25 10:58 Blood Pressure 162/90 H 11/02/25 10:58 Pulse Oximetry (%) 95 11/02/25 10:58 Oxygen Delivery Method Room Air 11/02/25 10:58 Pulse ox is 95% on room air which is adequate. Abdominal Pain MDM MDM Narrative MDM Narrative:: Tavia Zaldivar am scribing for and in the presence of Dr. Babcock. Patient remains clinically stable throughout the emergency department visit. We reviewed all the results, analysis, and treatment plans. Patient is amenable to discharge. Strict return precautions were outlined. Patient data External records reviewed:: [facility] previous records Clinical information provided by:: patient Social determinants that could affect healthcare access:: none Patient has the following chronic illnesses:: Peptic ulcer disease How is presenting disease/condition affected by chronic disease/condition?: exacerbated by Evaluation data The following diagnostics were reviewed and interpreted by me:: lab results and radiology exam(s) Lab and/or radiology exams considered but not ordered:: None Interpretation Summary: Ordering Physician: Salomon Eduardo Date of Service: 11/02/25 Procedure(s): CT abdomen pelvis wo con Accession Number(s): [id number] cc: Rima Stewart PA-C; Salomon Eduardo; Alvaro Combs MD~ Examination: CT abdomen and pelvis without contrast. Coronal 3-D reconstructions. Sagittal 2-D reconstructions. Date and time of exam: November 02, 2025, 1133 hours COMPARISON: October 21, 2025 INDICATIONS: Generalized abdominal pain today CTDI: vol (mGy): 5.75 DLP: (mGycm): 299 Technique: Axial images of the abdomen have been obtained, 3 mm slice thickness Intravenous contrast material has not been administered. Low dose protocols were performed. One or more of the following dose reduction techniques were used; automated exposure control, adjustment of the mA and/or KV according to patient size, use of iterative reconstruction technique. Findings: Trace pericardial effusion Liver lesion not appreciated on this noncontrast study Cholelithiasis Spleen is not enlarged No pancreatic mass Gastric sutures 1 mm nonobstructing left renal calculus, no hydronephrosis or ureteral calculi Mildly fluid distended small bowel loops No pericecal inflammatory change No diverticulitis Intact urinary bladder No pelvic mass Prominent osteopenia IMPRESSION: Cholelithiasis, recommend hepatobiliary sonography follow-up 1 mm nonobstructing left renal calculus Mild small bowel ileus versus enteritis Colonic diverticulosis, no diverticulitis No bowel obstruction Dictated By: Alvaro Combs MD Signed By: <Electronically signed by Alvaro Combs MD in [place]> 11/02/25 1150 Ordering Physician: Salomon Eduardo Date of Service: 11/02/25 Procedure(s): US gall bladder Accession Number(s): [id number] cc: Rima Stewart PA-C; Salomon Eduardo; Bruno Matias MD~ Study: Gallbladder ultrasound at 1240 hours 02 November 2025. INDICATION: CT follow-up examination. TECHNIQUE: Grayscale ultrasound with color flow Doppler. 1246 hours 02 November 2025. FINDINGS: The gallbladder wall is thin and there are multiple contained echogenic shadowing stones.. The common bile duct measures 0.6 cm. The liver measures 15.6 cm in the midclavicular line and is diffusely hyperechoic echoic consistent with fatty infiltration. There is no cyst, solid mass or ectatic duct. Portal vein flow is toward the liver. The portal vein measures 1.2 cm diameter. The IVC is patent. The aorta is normal in caliber. The limited view of the right kidney is unremarkable. IMPRESSION: 1. Cholelithiasis without cholecystitis. 2. Fatty liver. Dictated By: Bruno Matias MD Signed By: <Electronically signed by Bruno Matias MD in [place]> 11/02/25 1330 Medications / Prescriptions Medications or Prescriptions considered but not ordered:: None Medication administrations:: Medication Administration History Discontinued Medications Al Hydrox/Mg Hydrox/Simethicone (Mg Hyd/Al Hyd/Bety (Maalox Reg) Susp 30 Ml Udc) 30 ml PO X1 ONE Stop: 11/02/25 11:06 Last Admin: 11/02/25 11:21 Dose: 30 ml Documented By: OA Ketorolac Tromethamine (Ketorolac Inj 30 Mg/Ml Vial) 30 mg IVP X1 ONE Stop: 11/02/25 11:06 Last Admin: 11/02/25 13:31 Dose: 30 mg Documented By: WL See above Consultations Consultation(s) initiated? (list below): No Diagnosis Differential diagnosis abdominal pain: abdominal pain, gastroenteritis and other (PUD, gastritis ) Most likely diagnosis given after review of the tests above:: Gastritis Peptic ulcer Admission Indicated Admission indicated?: not indicated Explain why admission is indicated or not indicated:: With no condition needing emergent intervention, there was no indication for admission. Admission Request Was there a request for admission?: No Disposition Plan Disposition Plan: Discharge Discharge Attestation Discharge Attestation: The patient and all family members were given an opportunity to ask questions and understood the discharge instructions. Discharge instructions specifically effects, indications for sooner follow up or return to the emergency department, and the expected course of current diagnosis. Patient condition: Stable Discharge Plan Plan Patient Disposition: HOME (Self Care) Patient condition on transfer: Stable Prescriptions/Referrals Prescriptions/Med Rec: No Action metoprolol succinate 25 mg tablet extended release 24 hr 25 mg PO BID aripiprazole [Abilify] 5 mg tablet 5 mg PO QDAY Myrbetriq 25 mg tablet extended release 24 hr 25 mg PO QDAY oxybutynin chloride 10 mg tablet extended release 24hr 10 mg PO QDAY lisinopril 10 MG tablet 10 mg PO QDAY Qty: 0 azelastine 137 mcg (0.1 %) Aerosol,[place] 1 spray INTRANASAL BID Qty: 0 sumatriptan succinate [Imitrex] 50 mg tablet 100 mg PO Q2HR PRN (Reason: BREAKTHROUGH PAIN (MILD)) Qty: 0 citalopram 10 mg Tablet 10 mg PO QDAY hydrocodone-acetaminophen 10-325 mg Tablet 1 tab PO Q6H PRN (Reason: Pain) doxepin 100 mg Capsule 100 mg PO HS pantoprazole 40 mg Tablet,Delayed Release (Dr/Ec) 40 mg PO DAILY atorvastatin [Lipitor] 10 mg Tablet 10 mg PO QDAY omeprazole 20 mg capsule,delayed release(DR/EC) 20 mg PO QDAY 14 Days Qty: 14 0RF ascorbate calcium (vitamin C) 500 mg tablet 500 mg PO QDAY Qty: 30 0RF alum-mag hydroxide-simeth [Maalox Advanced] 200-200-20 mg/5 mL suspension 5 ml PO BID 14 Days Qty: 140 0RF sucralfate [Carafate] 1 gram tablet 1 g PO BID 14 Days Qty: 28 0RF ferrous sulfate 325 mg (65 mg iron) Tablet,Delayed Release (Dr/Ec) 325 mg PO BID 30 Days Qty: 60 0RF Prilosec 10 mg susp,delayed release for recon 20 mg PO BID Qty: 30 0RF magnesium hydroxide [Milk Of Magnesia Concentrated] 2,400 mg/10 mL suspension 10 ml PO BID PRN (Reason: constipation) Qty: 500 0RF acetaminophen-codeine 300-15 mg tablet 1 tab PO Q8H PRN (Reason: pain) Qty: 14 0RF Referrals: Rima Stewart PA-C [Primary Care Provider] - In 1 week Problem List Clinical Impression: Gastritis, Peptic ulcer Patient/Caregiver Discharge Instructions Discharge Activity: activity as tolerated Education Materials: ED Gastritis (Adult), ED PEPTIC ULCER vs GASTRITIS Additional Instructions: 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 If you have questions regarding the medications or you are missing medications you can return to the emergency department tomorrow. Print Language: Mohawk Stand Alone Forms: Latoya Award Info., Patient Portal Info Letter
== END 2025-11-02 17:14 | disposition home or self-care (01) ==
PROVIDERS: Nurse Practitioner Family; Emergency Provider Family Medicine; PCP Physician Assistant
DX: K29.71 Gastritis, unspecified, with bleeding (principal); K27.9 Peptic ulcer, site unspecified, unspecified as acute or chronic, without hemorrhage or perforation; K80.20 Calculus of gallbladder without cholecystitis without obstruction; K76.0 Fatty (change of) liver, not elsewhere classified; N20.0 Calculus of kidney; K57.30 Diverticulosis of large intestine without perforation or abscess without bleeding
CPT/HCPCS: 36415; 74176; 76705; 80053; 81001; 82140; 83690; 85025; 85610; 85730; 86850; 86900; 86901; 87086; 96374; 99283; J1885; A9270